=== PATIENT | female | born 1955 | race Caucasian/White ===

== ENCOUNTER 2017-10-09 10:48 | Inpatient (IN) ==
[2017-10-09] MEDS ORDERED: Ondansetron 4 MG/2 ML VIAL IVP ONE (10:51)
[2017-10-09] MEDS ORDERED: *HR* FentaNYL (PF) 100 MCG/2 ML VIAL IVP ONE (10:51)
--- NOTE | 2017-10-09 11:13 | Emergency Department Note ---
Disposition Clinical Impression: Hip fracture, right Qualifiers: Encounter type: initial encounter Fracture type: closed Qualified Code(s): S72.001A - Fracture of unspecified part of neck of right femur, initial encounter for closed fracture Disposition: Admitted As Inpatient Condition: Good Referrals: Kevin Haque DO [Primary Care Provider] - Time of Disposition: 13:37 General Adult HPI - General Chief complaint: ED Fall Stated complaint: Fall, hip pain Time Seen by Provider: 10/09/17 10:50 Source: patient, EMS Limitations: no limitations Nursing Notes Reviewed: Yes Vital Signs Reviewed: Yes - History of Present Illness HPI Narrative: Mechanical fall, right hip pain. Did not strike head. did not lose consciousness. Only complaining of right hip pain. Right hip is shortened and externally rotated. No radiation of the pain. Pain Scale: 9 - Related Data Home Medications Medication Instructions Recorded Confirmed Atenolol 100 mg PO DAILY 10/09/17 10/09/17 Atorvastatin Calcium [Lipitor] 20 mg PO QPM 10/09/17 10/09/17 Ergocalciferol (VITAMIN D2) 50,000 unit PO QWEEK 10/09/17 10/09/17 [Vitamin D2] Glimepiride [Amaryl] 4 mg PO BID 10/09/17 10/09/17 Insulin ASPART [Novolog Flexpen] 10 unit SQ 1700 10/09/17 10/09/17 Insulin Glargine,Hum.rec.anlog 25 unit SQ QAM 10/09/17 10/09/17 [Lantus Solostar] Lisinopril [Zestril] 40 mg PO BID 10/09/17 10/09/17 Omeprazole [PriLOSEC] 20 mg PO DAILY 10/09/17 10/09/17 Oxycodone HCl/Acetaminophen 1 tab PO Q4-6H PRN 10/09/17 10/09/17 [Percocet 5-325 mg Tablet] Pioglitazone HCl [Actos] 45 mg PO DAILY 10/09/17 10/09/17 amLODIPine [Norvasc] 5 mg PO DAILY 10/09/17 10/09/17 Allergies Allergy/AdvReac Type Severity Reaction Status Date / Time No Known Allergies Allergy Verified 10/09/17 10:53 All systems ED: reviewed and negative except as stated. Constitutional: Denies: fever, chills Cardiovascular: Denies: chest pain, syncope Respiratory: Denies: cough, dyspnea Gastrointestinal: Denies: abdominal pain, nausea, vomiting, diarrhea Musculoskeletal: Reports: other (Right hip pain). Denies: back pain, neck pain Past Medical History - Past Medical History Medical history: Reports: diabetes, hyperlipidemia, hypertension, renal disease Psychiatric history: Reports: anxiety, depression - Social History Smoking Status: Current every day smoker Smokeless Tobacco Status: No Alcohol use: Reports: none Drug use: Reports: none Physical Exam - General Limitations: no limitations General appearance: alert, in no apparent distress - Head Head exam: atraumatic, normocephalic, normal inspection - Eye Eye exam: Present: normal appearance, PERRL, EOMI - ENT ENT exam: normal exam, normal oropharynx, mucous membranes moist - Neck Neck exam: Present: normal inspection, full ROM, trachea midline - Chest Chest inspection: Present: normal inspection, symmetric chest wall rise - Respiratory Respiratory exam: Present: normal lung sounds bilaterally. Absent: respiratory distress - Cardiovascular Cardiovascular exam: Present: regular rate, normal rhythm - Abdominal Exam Abdominal exam: Present: soft, Non-Tender. Absent: organomegaly - Expanded Upper Extremity Exam Shoulder exam: Present: normal inspection, full ROM Arm exam: Present: normal inspection, full ROM Elbow exam: Present: normal inspection, full ROM Forearm/Wrist exam: Present: normal inspection, full ROM Hand exam: Present: normal inspection, full ROM Vascular exam: Normal: capillary refill, radial pulse - Expanded Lower Extremity Exam Hip/Pelvis exam: Present: external rotation (Right lower extremity), shortening (Right lower extremity) - Neurological Exam Neurological exam: Present: alert, oriented X3 - Psychiatric Psychiatric exam: Present: normal affect, normal mood - Skin Skin exam: Present: warm, dry, intact, normal color Course Course Narrative: Female patient presenting to the emergency department complaining of right hip pain. Her right lower extremity is shortened and externally rotated. She does have a fracture with possible underlying lytic lesion noted on the x-ray. She states that this was a mechanical fall. No syncope. Did not strike her head. She is not on any type of anticoagulation. She does have a history of diabetes as well as pancreatitis. She states she has broken several was before but never had to have surgery. She is complaining of mild pain at this time but did have some pain medication. Patient has no history of cancer. She does have good pulses in her lower extremities however she does have edema to both lower extremities. Her lung sounds are clear heart tones are normal. She has had no syncope or striking her head so we will not get a CT of her head. She is mentating appropriately at this time. I have discussed the lytic lesions in her leg with her. She expresses understanding. We will admit to the hospitalist and Dr. Wellington will be consulted for her hip fracture. - Consultations Consultation #1: I spoke with Dr Wellington's MA. She then spoke with Dr Jennings who states he will see the Pt this evening. Time: 12:00 Consultation #2: Dr Rock accepted Pt in stable condition. Time: 12:21 Vital Signs Temperature 97.5 F L 10/09/17 10:49 Pulse Rate 68 10/09/17 10:49 Respiratory Rate 18 10/09/17 10:49 Blood Pressure 163/66 10/09/17 10:49 O2 Sat by Pulse Oximetry 95 10/09/17 10:49 Temperature 98.0 F 10/09/17 13:16 Pulse Rate 62 10/09/17 13:16 Respiratory Rate 16 10/09/17 13:16 Blood Pressure 152/67 10/09/17 13:16 O2 Sat by Pulse Oximetry 97 10/09/17 13:16 Oxygen Delivery Oxygen Delivery Room Air Medical Decision Making - Medical Records Medical records reviewed: Yes I reviewed the patient's medical records. - Lab Data Lab results reviewed: Yes I reviewed the patient's lab results. Result diagrams: 10/09/17 11:35 10/09/17 11:35 Lab Results 10/09/17 10/09/17 10/09/17 Range/Units 11:35 11:35 11:35 WBC 8.5 (4.3-11.1) K/mcL RBC 4.94 (3.82-4.97) M/mcL Hgb 13.8 (11.5-15.4) g/dL Hct 41.3 (35.3-44.9) % MCV 83.6 (83.0-100.0) fL MCH 27.9 L (28.0-33.3) pg MCHC 33.4 (31.6-35.5) g/dL RDW 13.4 (11.5-14.5) % Plt Count 226 (140-400) K/mcL MPV 11.3 (9.4-12.4) fL Immature Gran % 0.6 (0-4) % Seg Neutrophils % 76.4 % Lymphocytes % 14.9 % Monocytes % 5.9 % Eosinophils % 1.5 % Basophils % 0.7 % Neutrophils # 6.5 (1.6-8.9) K/mcL Lymphocytes # 1.3 (0.6-4.6) K/mcL Monocytes # 0.5 (0.0-1.3) K/mcL Eosinophils # 0.1 (0.0-0.6) K/mcL Basophils # 0.1 (0.0-0.2) K/mcL PT 11.8 (9.4-12.1) Seconds INR 1.1 APTT 30.7 (26.0-36.0) Seconds Sodium 137 (136-145) mEq/L Potassium 3.7 (3.5-5.1) mEq/L Chloride 99 (98-107) mEq/L Carbon Dioxide 29 (23-29) mEq/L BUN 13 (8-23) mg/dL Creatinine 0.81 (0.60-1.20) mg/dL Est GFR ( Amer) > 60 (> 60) Est GFR (Non-Af Amer) > 60 (> 60) BUN/Creatinine Ratio 16 (6-26) Glucose 279 H (70-105) mg/dL Calculated Osmolality 294 (280-300) Calcium 10.0 (8.6-10.3) mg/dL - Radiology Data Radiology results reviewed: Yes I reviewed the patient's radiology results. Femur X-Ray 10/09/17 10:51 IMPRESSION: 1. Acute fracture involving the right femoral neck with indeterminate location. Suboptimal visualization of the fracture line is suspected to be related to an underlying osteolytic lesion, suggesting a pathologic fracture. Consider further evaluation with contrast-enhanced MRI. 2. Bony demineralization. D/ / Ash Bingham MD / Ash Bingham MD Interpreting Provider: Ash Bingham MD Pelvis X-Ray 10/09/17 10:51 IMPRESSION: 1. Acute fracture involving the right femoral neck with indeterminate location. Suboptimal visualization of the fracture line is suspected to be related to an underlying osteolytic lesion, suggesting a pathologic fracture. Consider further evaluation with contrast-enhanced MRI. 2. Bony demineralization. D/ / Ash Bingham MD / Ash Bingham MD Interpreting Provider: Ash Bingham MD - EKG Data EKG #1 EKG attestation: Yes I reviewed and interpreted this EKG. EKG results narrative: Normal sinus rhythm at a rate of 66. SC interval is 172. Ferrous duration is 92. QT is 393. QTC is 406. No signs of acute ischemia. No old EKG to compare to.
[2017-10-09 11:49] LABS: Basophils # 0.1 K/mcL (0.0-0.2); Basophils % 0.7 %; Eosinophils # 0.1 K/mcL (0.0-0.6); Eosinophils % 1.5 %; Hematocrit 41.3 % (35.3-44.9); Hemoglobin 13.8 g/dL (11.5-15.4); Immature Granulocytes % 0.6 % (0-4); Lymphocytes # 1.3 K/mcL (0.6-4.6); Lymphocytes % 14.9 %; Mean Corpuscular HGB Conc 33.4 g/dL (31.6-35.5); Mean Corpuscular Hemoglobin 27.9 pg (28.0-33.3); Mean Corpuscular Volume 83.6 fL (83.0-100.0); Mean Platelet Volume 11.3 fL (9.4-12.4); Monocytes # 0.5 K/mcL (0.0-1.3); Monocytes % 5.9 %; Neutrophils # 6.5 K/mcL (1.6-8.9); Platelet Count 226 K/mcL (140-400); Red Blood Count 4.94 M/mcL (3.82-4.97); Red Cell Distribution Width 13.4 % (11.5-14.5); Segmented Neutrophils % 76.4 %
--- NOTE | 2017-10-09 11:52 | Emergency Department Note ---
Disposition Clinical Impression: Hip fracture, right Qualifiers: Encounter type: initial encounter Fracture type: closed Qualified Code(s): S72.001A - Fracture of unspecified part of neck of right femur, initial encounter for closed fracture Disposition: Admitted As Inpatient Condition: Good General Adult HPI - General Chief complaint: ED Fall Stated complaint: Fall, hip pain Time Seen by Provider: 10/09/17 10:50 Source: patient, EMS Limitations: no limitations - History of Present Illness Pain Scale: 9 - Related Data Home Medications Medication Instructions Recorded Confirmed Atenolol 100 mg PO DAILY 10/09/17 10/09/17 Atorvastatin Calcium [Lipitor] 20 mg PO QPM 10/09/17 10/09/17 Ergocalciferol (VITAMIN D2) 50,000 unit PO QWEEK 10/09/17 10/09/17 [Vitamin D2] Glimepiride [Amaryl] 4 mg PO BID 10/09/17 10/09/17 Insulin ASPART [Novolog Flexpen] 10 unit SQ 1700 10/09/17 10/09/17 Insulin Glargine,Hum.rec.anlog 25 unit SQ QAM 10/09/17 10/09/17 [Lantus Solostar] Lisinopril [Zestril] 40 mg PO BID 10/09/17 10/09/17 Omeprazole [PriLOSEC] 20 mg PO DAILY 10/09/17 10/09/17 Oxycodone HCl/Acetaminophen 1 tab PO Q4-6H PRN 10/09/17 10/09/17 [Percocet 5-325 mg Tablet] Pioglitazone HCl [Actos] 45 mg PO DAILY 10/09/17 10/09/17 amLODIPine [Norvasc] 5 mg PO DAILY 10/09/17 10/09/17 Allergies Allergy/AdvReac Type Severity Reaction Status Date / Time No Known Allergies Allergy Verified 10/09/17 10:53 Past Medical History - Past Medical History Medical history: Reports: diabetes, hyperlipidemia, hypertension, renal disease Psychiatric history: Reports: anxiety, depression - Social History Smoking Status: Current every day smoker Smokeless Tobacco Status: No Alcohol use: Reports: none Drug use: Reports: none Physical Exam - General Limitations: no limitations General appearance: alert, in no apparent distress Course Vital Signs Temperature 97.5 F L 10/09/17 10:49 Pulse Rate 68 10/09/17 10:49 Respiratory Rate 18 10/09/17 10:49 Blood Pressure 163/66 10/09/17 10:49 O2 Sat by Pulse Oximetry 95 10/09/17 10:49 Temperature 98.0 F 10/09/17 18:30 Pulse Rate 74 10/09/17 18:30 Respiratory Rate 16 10/09/17 18:30 Blood Pressure 137/76 10/09/17 18:30 O2 Sat by Pulse Oximetry 98 10/09/17 18:30 Oxygen Delivery Oxygen Delivery Room Air Medical Decision Making - Lab Data Result diagrams: 10/09/17 11:35 10/09/17 11:35 Lab Results 10/09/17 10/09/17 10/09/17 Range/Units 11:35 11:35 11:35 WBC 8.5 (4.3-11.1) K/mcL RBC 4.94 (3.82-4.97) M/mcL Hgb 13.8 (11.5-15.4) g/dL Hct 41.3 (35.3-44.9) % MCV 83.6 (83.0-100.0) fL MCH 27.9 L (28.0-33.3) pg MCHC 33.4 (31.6-35.5) g/dL RDW 13.4 (11.5-14.5) % Plt Count 226 (140-400) K/mcL MPV 11.3 (9.4-12.4) fL Immature Gran % 0.6 (0-4) % Seg Neutrophils % 76.4 % Lymphocytes % 14.9 % Monocytes % 5.9 % Eosinophils % 1.5 % Basophils % 0.7 % Neutrophils # 6.5 (1.6-8.9) K/mcL Lymphocytes # 1.3 (0.6-4.6) K/mcL Monocytes # 0.5 (0.0-1.3) K/mcL Eosinophils # 0.1 (0.0-0.6) K/mcL Basophils # 0.1 (0.0-0.2) K/mcL PT 11.8 (9.4-12.1) Seconds INR 1.1 APTT 30.7 (26.0-36.0) Seconds Sodium 137 (136-145) mEq/L Potassium 3.7 (3.5-5.1) mEq/L Chloride 99 (98-107) mEq/L Carbon Dioxide 29 (23-29) mEq/L BUN 13 (8-23) mg/dL Creatinine 0.81 (0.60-1.20) mg/dL Est GFR ( Amer) > 60 (> 60) Est GFR (Non-Af Amer) > 60 (> 60) BUN/Creatinine Ratio 16 (6-26) Glucose 279 H (70-105) mg/dL Calculated Osmolality 294 (280-300) Calcium 10.0 (8.6-10.3) mg/dL Critical Care Time Critical Care Time: No Attestation Statement - Attestation Attestation: I examined this patient and my medical decision-making was reviewed with the Resident Physician. I agree with the documented findings, disposition and treatment plan as described except to the extent set forth below. Patient ED after a fall. Patient lost her balance in her house and fell landed on her right leg. Depending a right upper thigh pain. No neck or back pain. Did not hit her head. On examination she is awake alert oriented 3. Right leg is shortened and externally rotated. Patient does not allow logrolling secondary to pain. But pink and warm. Plan. X-ray shows a subcapital hip fracture. Preop labs admitted to medicine with orthopedic consult. X-ray shows possible lytic lesions in the bone. Admitted to medicine with orthopedic consult.
[2017-10-09 11:54] LABS: INR 1.1; Prothrombin Time 11.8 Seconds (9.4-12.1)
[2017-10-09 11:57] LABS: Activated Partial Thrombo Time 30.7 Seconds (26.0-36.0)
[2017-10-09 12:10] LABS: BUN/Creatinine Ratio 16 (6-26); Blood Urea Nitrogen 13 mg/dL (8-23); Carbon Dioxide 29 mEq/L (23-29); Chloride 99 mEq/L (98-107); Glucose 279 mg/dL (70-105); Osmolality,Calculated 294 (280-300); Potassium 3.7 mEq/L (3.5-5.1); Sodium 137 mEq/L (136-145); eGFR For African Americans > 60 (> 60); eGFR For Non-African Americans > 60 (> 60)
[2017-10-09] MEDS ORDERED: Naloxone 0.4 MG/ML INJ IVP PRN (13:14)
[2017-10-09] MEDS ORDERED: *HR* Dextrose 50 % in Water (Syg) 50 ML SYRINGE IVP PRN (13:18)
[2017-10-09] MEDS ORDERED: D5% in Water 1,000 ML IVC PRN (13:18)
[2017-10-09] MEDS ORDERED: Dextrose Gel 15 GM/37.5 ML TUBE PO PRN ×2 (13:18)
[2017-10-09] MEDS ORDERED: Isovue-370 500 ML INFUS..BTL IV ONE (13:19)
--- NOTE | 2017-10-09 13:34 | Internal Med History&Physical ---
Date of Encounter: 10/09/17 Time of Encounter: 13:29 Internal Medicine - H&P: HPI Chief complaint: fall Admitted From: Emergency Dept Plans for Post Hospital Care: Transfer Inp Rehab Fac History of present illness: Ms. Oakley is a 62 year old female who is a background medical history of her diabetes, hyperlipidemia, hypertension. Patient came to emergency room for evaluation after she had a fall at home. Patient had a fall when she was completely alert oriented 3. Patient had a slip and fall which is likely a mechanical fall. Patient denies chest pain, shortness of breath, nausea, vomiting, dizziness or diarrhea. Patient denies any presyncopal/syncopal episode. Workup in the emergency room: Patient was brought to the emergency room after she had a fall. In the emergency room it was noted that she has a her right leg is shortened and externally rotated. X-ray of the hip along with pelvis demonstrated right-sided subcapital hip fracture likely secondary to underlying osteolytic lesion. Reason for admission: Right-sided subcapital hip fracture likely secondary to underlying lytic lesion for which etiology is unknown at this time. Past Med Surg Social Fam HX - Past Medical History Medical history: diabetes, hyperlipidemia, hypertension, renal disease Psychiatric history: anxiety, depression - Past Surgical History Surgical History: orthopedic, other - Social History Smoking Status: Current every day smoker Packs per day: 1 Smokeless Tobacco Status: No Alcohol use: none Drug use: none - Family History Mother Living Status: Hx Family Endocrine Disorder: Yes Internal Medicine - H&P: Meds Atenolol 100 mg PO DAILY 10/09/17 [History] Atorvastatin Calcium [Lipitor] 20 mg PO QPM 10/09/17 [History] Ergocalciferol (VITAMIN D2) [Vitamin D2] 50,000 unit PO QWEEK 10/09/17 [History] Glimepiride [Amaryl] 4 mg PO BID 10/09/17 [History] Insulin ASPART [Novolog Flexpen] 10 unit SQ 1700 10/09/17 [History] Insulin Glargine,Hum.rec.anlog [Lantus Solostar] 25 unit SQ QAM 10/09/17 [ History] Lisinopril [Zestril] 40 mg PO BID 10/09/17 [History] Omeprazole [PriLOSEC] 20 mg PO DAILY 10/09/17 [History] Oxycodone HCl/Acetaminophen [Percocet 5-325 mg Tablet] 1 tab PO Q4-6H PRN [History] Pioglitazone HCl [Actos] 45 mg PO DAILY 10/09/17 [History] amLODIPine [Norvasc] 5 mg PO DAILY 10/09/17 [History] 3 Allergy/AdvReac Type Severity Reaction Status Date / Time No Known Allergies Allergy Verified 10/09/17 10:53 All Systems PM: A 10-system review of systems was performed and is negative for pertinent findings except as documented above in the HPI. - Constitutional Constitutional: no chills, no fever(s), no night sweats - EENT Eyes: no change in vision, no discharge, no pain, no photophobia Ears: no ear discharge, no ear pain, no tinnitus Nose, mouth and throat: no dysphagia, no nasal discharge, no neck pain, no sore throat - Cardiovascular Cardiovascular ROS IM: no chest pain, no diaphoresis, no dyspnea, no lightheadedness, no palpitations, no syncope - Respiratory Respiratory: no cough, no dyspnea, no wheezing, no excessive phlegm production - Gastrointestinal Gastrointestinal: no abdominal pain, no diarrhea, no hematemesis, no hematochezia, no melena, no nausea, no vomiting - Genitourinary Genitourinary: no change in urinary stream, no dysuria, no flank pain, no hematuria - Musculoskeletal Musculoskeletal ROS IM: no numbness, no tingling Additional comments: Patient had a fall and pain on the right thigh area. - Integumentary Integumentary IM: no rash, no unusual bruising - Neurological Neurological ROS: no confusion, no convulsions, no focal weakness, no numbness, no tingling, no tremor(s) - Hematologic/Lymphatic Hematologic/Lymphatic: no easy bruising - Constitutional Vitals: Temp Pulse Resp BP Pulse Ox 98.0 F 62 16 152/67 97 10/09/17 13:16 10/09/17 13:16 10/09/17 13:16 10/09/17 13:16 10/09/17 13:16 General appearance: Present: A&O X 3, pleasant, no acute distress, answers questions appropriately - Head Head exam: Present: atraumatic, normocephalic - Eye Eye exam: Present: PERRL, conjuntiva pink, sclera anicteric Pupils: Present: PERRL - Neck Neck exam general surgery: Present: supple, trachea midline. Absent: lymphadenopathy - Respiratory Respiratory exam: Present: CTAB. Absent: accessory muscle use, rales, rhonchi, wheezes - Cardiovascular Cardiovascular exam: Present: RRR, +S1, +S2. Absent: diastolic murmur, gallop, rubs, systolic murmur - GI/Abdominal GI/Abdominal exam: Present: normal bowel sounds, soft, no peritoneal signs. Absent: distended, tenderness - Extremities Exam Extremities exam: Present: warm, radial pulses palpable and symmetrical. Absent : calf tenderness, cyanotic, pedal edema Additional comments: Right-sided fall on her lower extremity with leg shortening and external rotation. Neurovascular structures intact. - Neurological Exam Neurological exam: Present: CN II-XII intact, oriented X3, no focal deficits. Absent: pronater drift, facial droop, speech deficit - Skin Skin exam: Present: dry, intact Internal Med - H&P Results - Labs CBC & Chem 7: 10/09/17 11:35 10/09/17 11:35 - Assessment and plan (1) Hip fracture, right Current Visit: Yes Status: Acute Assessment and plan: 62/female Patient has a multiple comorbid conditions. Admitted after a mechanical fall with a right-sided subcapital hip fracture. Noted osteolytic lesion right hip. Mammogram: 06/2017: Negative Pap: 07/2016: Negative. Plan: Admit as inpatient. Pain control with appropriate narcotic pain medication. Cardiac/diabetic diet Resume home medication. Nothing by mouth from midnight. Orthopedic evaluation: Plan regarding right-sided subcapital fracture. Hematology oncology evaluation: Workup for the lactic lesion and follow-up (CXR : No acute process, CT abd/pelvis: Ordered) I examined this patient in the emergency room #15. patient's was at bedside. Plan of care explained at length and they verbalize understanding. Qualifiers: Encounter type: initial encounter Fracture type: closed Qualified Code(s) : S72.001A - Fracture of unspecified part of neck of right femur, initial encounter for closed fracture (2) Diabetes mellitus Current Visit: Yes Status: Acute Assessment and plan: Patient is known to have a diabetes mellitus. This is a type 2 diabetes mellitus. At home she is taking insulin. We will continue her insulin. We will follow the recommendations from subcutaneous insulin order set. Qualifiers: Diabetes mellitus type: type 2 Diabetes mellitus fci insulin use: with fci use Diabetes mellitus complication status: with unspecified complications Qualified Code(s): E11.8 - Type 2 diabetes mellitus with unspecified complications; Z79.4 - penitentiary (current) use of insulin; Z79.4 - penitentiary (current) use of insulin; Z79.4 - meeting/event planner (current) use of insulin; Z79.4 - penitentiary (current) use of insulin (3) Hypertension Current Visit: Yes Status: Acute Assessment and plan: Patient is known to have a hypertension. Patient is on 3 different medication for blood pressure control. At this point patient's blood pressure is very well controlled and within acceptable range. Patient received intravenous pain medication to control pain since pain can elevate the blood pressure in this patient. We will resume patient's home pain medication. We will resume patient's antihypertensive medications. Qualifiers: Hypertension type: essential hypertension Qualified Code(s): I10 - Essential (primary) hypertension (4) Dyslipidemia Current Visit: Yes Status: Acute Assessment and plan: Patient is presently on starting. we will continue statin. Lipid panel tomorrow morning. (5) DVT prophylaxis Current Visit: Yes Status: Acute Assessment and plan: Heparin Medical decision making: This patient has a moderate to severe risk of worsening in spite of being on appropriate medication due to the underlying complex medical condition. - Time Spent With Patient Total time spent is greater than 50% in coordination of care (as documented) at patient's floor/unit and/or counseling patient:
[2017-10-09 14:01] LABS: INR 1.1; Prothrombin Time 11.8 Seconds (9.4-12.1)
[2017-10-09 14:04] LABS: Activated Partial Thrombo Time 33.8 Seconds (26.0-36.0)
[2017-10-09] MEDS: *HR* OxyCODONE/APAP 5/325 TABLET PO PRN ×2 (15:37→21:04)
[2017-10-09] MEDS: amLODIPine 5 MG TABLET PO SCH (15:38)
[2017-10-09] MEDS: Cholecalciferol (D-3) 1,000 UNIT TABLET PO SCH (15:39)
[2017-10-09] MEDS: Lisinopril 20 MG TABLET PO SCH ×2 (15:39→21:01)
[2017-10-09] MEDS: Insulin LISPRO 300 UNITS/3 ML VIAL SQ SCH ×2 (17:16→17:17)
[2017-10-09] MEDS ORDERED: *HR* Heparin 5,000 UNIT/ML VIAL SQ SCH (18:00)
--- NOTE | 2017-10-09 20:50 | Orthopedic Consult Note ---
Date of Encounter: 10/09/17 Time of Encounter: 20:44 History of Present Illness Chief complaint: Right hip pain HPI: Ms. Oakley is a 62 year old female who lost her balance and fell in her home in the kitchen. She landed on the right hip and had immediate pain and inability to ambulate. She called the squad and was taken to [facility] were x-rays taken revealed evidence of a right hip fracture. There was some question about whether there was a lytic lesion, a CT scan was performed which revealed the fracture but no evidence of an obvious pathologic process although than osteopenia. Patient is admitted for definitive management of this injury. Patient's medical and surgical history was reviewed. The formal history and physical examination on the chart was likewise reviewed. Pertinent orthopedic examination reveals the right lower extremity to be held in a shortened and externally rotated position. Distal neurosensory exam is grossly intact. Limited examination of the hip was performed due to the pain is elicited. Laboratory data includes a normal white blood cell count of 8.5, hemoglobin of 13.8, count of 226 and normal coagulation profile. Chemistries are unremarkable other than a glucose of 200-300. Multiple x-rays of the right femur and hip were reviewed. This reveals a displaced right femoral neck fracture. Osteopenia is noted. The head remained seated in the acetabulum. There is shortening due to muscle pull with the femur migrated proximal. CT scan of the pelvis was reviewed. This is show any evidence of lytic or other pathologic lesions. Impression: Displaced right femoral neck fracture Recommendation: I long discussion with the patient regarding the fracture and the treatment options. This would include observation without surgical intervention, attempted reduction and percutaneous pinning or hemiarthroplasty of the hip. Discussed that nonoperative management is not a good option. Percutaneous pinning would limit her ambulatory capacity and is associated with a high risk of failure. Hemiarthroplasty of the hip would allow her to begin immediate full weightbearing ambulation though she would have hip precautions required as well as this being a little bit more extensive surgery. After discussing the options at length the patient has requested we proceed with a hemiarthroplasty of the right hip. I discussed the potential risks and complications including but not limited to bleeding, infection, blood clots, stiffness, dislocation, as well as leg length or rotational deformities. Patient signed informed consent for the surgery. We will proceed with surgery tomorrow when operating time is available. Preoperative orders have been written. Thank you very much for allowing me to see care for Mrs. Oakley. Sincerely, Ayo Wellington,DO Past Med Surg Social Fam HX - Past Medical History Medical history: diabetes, hyperlipidemia, hypertension, renal disease Psychiatric history: anxiety, depression - Past Surgical History Surgical History: orthopedic, other - Social History Smoking Status: Current every day smoker Packs per day: 1 Smokeless Tobacco Status: No Alcohol use: none Drug use: none - Family History Mother Living Status: Hx Family Endocrine Disorder: Yes Medications and Allergies Atenolol 100 mg PO DAILY 10/09/17 [History] Atorvastatin Calcium [Lipitor] 20 mg PO QPM 10/09/17 [History] Ergocalciferol (VITAMIN D2) [Vitamin D2] 50,000 unit PO QWEEK 10/09/17 [History] Glimepiride [Amaryl] 4 mg PO BID 10/09/17 [History] Insulin ASPART [Novolog Flexpen] 10 unit SQ 1700 10/09/17 [History] Insulin Glargine,Hum.rec.anlog [Lantus Solostar] 25 unit SQ QAM 10/09/17 [ History] Lisinopril [Zestril] 40 mg PO BID 10/09/17 [History] Omeprazole [PriLOSEC] 20 mg PO DAILY 10/09/17 [History] Oxycodone HCl/Acetaminophen [Percocet 5-325 mg Tablet] 1 tab PO Q4-6H PRN [History] Pioglitazone HCl [Actos] 45 mg PO DAILY 10/09/17 [History] amLODIPine [Norvasc] 5 mg PO DAILY 10/09/17 [History] 3 Allergy/AdvReac Type Severity Reaction Status Date / Time No Known Allergies Allergy Verified 10/09/17 10:53 All Systems Reviewed: The remainder of the systems were reviewed and are negative Physical Exam - Constitutional Vitals: Temp Pulse Resp BP Pulse Ox 98.0 F 74 16 137/76 98 10/09/17 18:30 10/09/17 18:30 10/09/17 18:30 10/09/17 18:30 10/09/17 18:30 Results - Labs Result Diagrams: 10/09/17 11:35 10/09/17 11:35 Labs: Abnormal lab results MCH 27.9 pg (28.0-33.3) L 10/09/17 11:35 Glucose 279 mg/dL (70-105) H 10/09/17 11:35 POC Glucose 213 mg/dL (70-99) H 10/09/17 18:27 All other labs normal. - Diagnostic results Hip x-ray: image reviewed Pelvic AP x-ray: image reviewed Consult Discharge Plan - Plan Referrals: Kevin Haque DO [Primary Care Provider] -
[2017-10-10 01:34] LABS: Basophils % 0.3 %; Hematocrit 38.2 % (35.3-44.9); Hemoglobin 12.8 g/dL (11.5-15.4); Immature Granulocytes % 0.4 % (0-4); Lymphocytes # 0.7 K/mcL (0.6-4.6); Lymphocytes % 6.3 %; Mean Corpuscular HGB Conc 33.5 g/dL (31.6-35.5); Mean Corpuscular Hemoglobin 27.5 pg (28.0-33.3); Mean Corpuscular Volume 82.2 fL (83.0-100.0); Mean Platelet Volume 10.9 fL (9.4-12.4); Monocytes # 0.4 K/mcL (0.0-1.3); Neutrophils # 9.3 K/mcL (1.6-8.9); Platelet Count 188 K/mcL (140-400); Red Blood Count 4.65 M/mcL (3.82-4.97); Red Cell Distribution Width 13.5 % (11.5-14.5)
[2017-10-10 02:01] LABS: Alanine Aminotransferase 10 Units/L (7-52); Albumin 3.5 g/dL (3.5-5.7); Albumin/Globulin Ratio 1.2 (1.1-2.2); Alkaline Phosphatase 106 Units/L (34-104); Aspartate Amino Transferase 14 Units/L (13-39); BUN/Creatinine Ratio 17 (6-26); Bilirubin,Total 0.6 mg/dL (0.3-1.0); Blood Urea Nitrogen 12 mg/dL (8-23); Calcium 9.2 mg/dL (8.6-10.3); Carbon Dioxide 27 mEq/L (23-29); Chloride 100 mEq/L (98-107); Chol/HDL Ratio 2.9 (0-4.9); Cholesterol 106 mg/dL (< 200); Glucose 198 mg/dL (70-105); HDL Cholesterol 37 mg/dL (40-59); LDL Cholesterol,Calculated 59 mg/dL (0-99); Magnesium 1.4 mg/dL (1.6-2.6); Osmolality,Calculated 289 (280-300); Phosphorous 3.3 mg/dL (2.7-4.5); Potassium 3.3 mEq/L (3.5-5.1); Sodium 137 mEq/L (136-145); Total Protein 6.5 g/dL (6.4-8.9); Triglycerides 49 mg/dL (< 150); eGFR For African Americans > 60 (> 60); eGFR For Non-African Americans > 60 (> 60)
[2017-10-10] MEDS ORDERED: Insulin DETEMIR 100 UNIT/ML X5UNITS SQ SCH (09:00)
--- NOTE | 2017-10-10 09:20 | Electrocardiograph Report ---
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
[2017-10-10] MEDS: Insulin LISPRO 300 UNITS/3 ML VIAL SQ SCH ×4 (09:25→17:51)
[2017-10-10] MEDS: amLODIPine 5 MG TABLET PO SCH (09:25)
[2017-10-10] MEDS: Cholecalciferol (D-3) 1,000 UNIT TABLET PO SCH (09:26)
[2017-10-10] MEDS: Lisinopril 20 MG TABLET PO SCH ×2 (09:26→21:00)
--- NOTE | 2017-10-10 11:32 | Electrocardiograph Report ---
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
[2017-10-10] MEDS: *HR* OxyCODONE/APAP 5/325 TABLET PO PRN (11:52)
[2017-10-10] MEDS ORDERED: Potassium Chloride Elixir 20 MEQ/15 ML UDC PO ONE (12:15)
--- NOTE | 2017-10-10 13:18 | Anesthesia Evaluation PreOp ---
<Tony Vincent - Last Filed: 10/10/17 13:15> Date of Encounter: 10/10/17 Time of Encounter: 13:15 - Past History Planned Operation: Right Hip Hemiarthroplasty Cardiac History: HTN, Hyperlipidemia Pulmonary History: Smoker, Pack/yr (1 ppd) Other Medical History: Renal, Diabetes Type II Alcohol Use: none Drug use: none Medications and Allergies Atenolol 100 mg PO DAILY 10/09/17 [History] Atorvastatin Calcium [Lipitor] 20 mg PO QPM 10/09/17 [History] Ergocalciferol (VITAMIN D2) [Vitamin D2] 50,000 unit PO QWEEK 10/09/17 [History] Glimepiride [Amaryl] 4 mg PO BID 10/09/17 [History] Insulin ASPART [Novolog Flexpen] 10 unit SQ 1700 10/09/17 [History] Insulin Glargine,Hum.rec.anlog [Lantus Solostar] 25 unit SQ QAM 10/09/17 [ History] Lisinopril [Zestril] 40 mg PO BID 10/09/17 [History] Omeprazole [PriLOSEC] 20 mg PO DAILY 10/09/17 [History] Oxycodone HCl/Acetaminophen [Percocet 5-325 mg Tablet] 1 tab PO Q4-6H PRN [History] Pioglitazone HCl [Actos] 45 mg PO DAILY 10/09/17 [History] amLODIPine [Norvasc] 5 mg PO DAILY 10/09/17 [History] 3 Allergy/AdvReac Type Severity Reaction Status Date / Time No Known Allergies Allergy Verified 10/09/17 10:53 - Meds/Allergy Pre-op Review Medications Reviewed: Yes Allergies Reviewed: Yes Beta Blockers on Current Med List: Yes If Beta Blockers taken, Date/Time (Last Dose taken): 10/10/17 @ 09:36 Anesthesia Results - Labs 10/10/17 01:18 10/10/17 01:18 - Imaging EKG: report reviewed (SINUS RHYTHM INTRAVENTRICULAR CONDUCTION DELAY) Anesthesia Exam Vital Signs/O2 Sat, Most Current Temp Pulse Resp BP Pulse Ox 97.5 F L 67 16 131/80 98 10/10/17 11:31 10/10/17 11:31 10/10/17 11:31 10/10/17 11:31 10/10/17 11:31 <Stella Rashid - Last Filed: 10/10/17 19:13> Date of Encounter: 10/10/17 - Past History Cardiac History: CHF (BNP = 109 this hospitalization) PSYCHOLOGIST ENGINEERING History: Denies Any Significant HX Other Medical History: Diabetes Type II (Poorly controlled DM/HbA1 = 9.6) Anesthesia History: No Prior Anesthetic Complications, Past Anesthesia (Starr, C -section x 2, Cataracts, Appy) Anesthesia Results - Labs 10/10/17 01:18 10/10/17 01:18 Laboratory Results WBC 10.5 K/mcL (4.3-11.1) 10/10/17 01:18 RBC 4.65 M/mcL (3.82-4.97) 10/10/17 01:18 Hgb 12.8 g/dL (11.5-15.4) 10/10/17 01:18 Hct 38.2 % (35.3-44.9) 10/10/17:18 MCV 82.2 fL (83.0-100.0) L 10/10/17 01:18 MCH 27.5 pg (28.0-33.3) L 10/10/17 01:18 MCHC 33.5 g/dL (31.6-35.5) 10/10/17:18 RDW 13.5 % (11.5-14.5) 10/10/17 01:18 Plt Count 188 K/mcL (140-400) 10/10/17 01:18 MPV 10.9 fL (9.4-12.4) 10/10/17 01:18 Immature Gran % 0.4 % (0-4) 10/10/17 01:18 Seg Neutrophils % 89.0 % 10/10/17 01:18 Lymphocytes % 6.3 % 10/10/17 01:18 Monocytes % 4.0 % 10/10/17 01:18 Eosinophils % 0.0 % 10/10/17 01:18 Basophils % 0.3 % 10/10/17 01:18 Neutrophils # 9.3 K/mcL (1.6-8.9) H 10/10/17 01:18 Lymphocytes # 0.7 K/mcL (0.6-4.6) 10/10/17 01:18 Monocytes # 0.4 K/mcL (0.0-1.3) 10/10/17 01:18 Eosinophils # 0.0 K/mcL (0.0-0.6) 10/10/17 01:18 Basophils # 0.0 K/mcL (0.0-0.2) 10/10/17 01:18 PT 11.8 Seconds (9.4-12.1) 10/09/17 13:42 INR 1.1 10/09/17 13:42 APTT 33.8 Seconds (26.0-36.0) 10/09/17 13:42 Sodium 137 mEq/L (136-145) 10/10/17 01:18 Potassium 3.3 mEq/L (3.5-5.1) L 10/10/17 01:18 Chloride 100 mEq/L (98-107) 10/10/17 01:18 Carbon Dioxide 27 mEq/L (23-29) 10/10/17 01:18 BUN 12 mg/dL (8-23) 10/10/17 01:18 Creatinine 0.70 mg/dL (0.60-1.20) 10/10/17 01:18 Est GFR ( Amer) > 60 (> 60) 10/10/17 01:18 Est GFR (Non-Af Amer) > 60 (> 60) 10/10/17 01:18 BUN/Creatinine Ratio 17 (6-26) 10/10/17 01:18 Glucose 198 mg/dL (70-105) H 10/10/17 01:18 POC Glucose 129 mg/dL (70-99) H 10/10/17 16:39 Calculated Osmolality 289 (280-300) 10/10/17 01:18 Calcium 9.2 mg/dL (8.6-10.3) 10/10/17 01:18 Phosphorus 3.3 mg/dL (2.7-4.5) 10/10/17 01:18 Magnesium 1.4 mg/dL (1.6-2.6) L 10/10/17 01:18 Total Bilirubin 0.6 mg/dL (0.3-1.0) 10/10/17 01:18 AST 14 Units/L (13-39) 10/10/17 01:18 ALT 10 Units/L (7-52) 10/10/17 01:18 Alkaline Phosphatase 106 Units/L (34-104) H 10/10/17 01:18 Troponin I < 0.03 ng/mL (< 0.04) 10/10/17 01:18 B-Natriuretic Peptide 109 pg/mL (Less than 100) H 10/10/17 01:18 Serum Total Protein 6.5 g/dL (6.4-8.9) 10/10/17 01:18 Albumin 3.5 g/dL (3.5-5.7) 10/10/17 01:18 Globulin 3.0 g/dL (2.4-3.5) 10/10/17 01:18 Albumin/Globulin Ratio 1.2 (1.1-2.2) 10/10/17 01:18 Triglycerides 49 mg/dL (< 150) 10/10/17 01:18 Cholesterol 106 mg/dL (< 200) 10/10/17 01:18 LDL Cholesterol, Calc 59 mg/dL (0-99) 10/10/17 01:18 VLDL Cholesterol, Calc 10 mg/dL (< 31) 10/10/17 01:18 HDL Cholesterol 37 mg/dL (40-59) L 10/10/17 01:18 Cholesterol/HDL Ratio 2.9 (0-4.9) 10/10/17 01:18 Impressions Femur X-Ray 10/09/17 10:51 IMPRESSION: 1. Acute fracture involving the right femoral neck with indeterminate location. Suboptimal visualization of the fracture line is suspected to be related to an underlying osteolytic lesion, suggesting a pathologic fracture. Consider further evaluation with contrast-enhanced MRI. 2. Bony demineralization. D/ / Ash Bingham MD / Ash Bingham MD Interpreting Provider: Ash Bingham MD Pelvis X-Ray 10/09/17 10:51 IMPRESSION: 1. Acute fracture involving the right femoral neck with indeterminate location. Suboptimal visualization of the fracture line is suspected to be related to an underlying osteolytic lesion, suggesting a pathologic fracture. Consider further evaluation with contrast-enhanced MRI. 2. Bony demineralization. D/ / Ash Bingham MD / Ash Bingham MD Interpreting Provider: Ash Bingham MD Chest X-Ray 10/09/17 11:27 IMPRESSION: No acute process. D/ / Ash Singh MD / Ash Singh MD Interpreting Provider: Ash Singh MD Abdomen/Pelvis CT 10/09/17 15:45 IMPRESSION: 1. Re- demonstration of a right subcapital femoral neck fracture. With CT, the fracture planes are better defined, and no convincing evidence of a bony lesion is detected, and therefore, the fracture is believed to be secondary to severe bony demineralization rather than secondary to underlying bone lesion. D/ / Collins Calderon MD / Collins Calderon MD Interpreting Provider: Collins Calderon MD Anesthesia Exam Height: 6'1 Weight: 228# BMI = 30 NPO (# of Hours): MNOc - HEENT Pupil (Motor): Pupils equal, EOMI Mallampati: II Teeth: Edentulous Oral Opening: Greater than 3 - PSYCHOLOGIST ENGINEERING LOC: Oriented PSYCHOLOGIST ENGINEERING Motor: Normal RUE, Normal LUE, Normal LLE, Normal Face, Deficit RLE PSYCHOLOGIST ENGINEERING Sensory: Normal: RUE, LUE, LLE, Face, Deficit: RLE - Cardiac Rhythm: Regular Murmur: None - Pulmonary Breath Sounds: bilateral Clear Respiratory Effort: Symmetrical Anesthesia Assess/Plan ASA Score: 3 (Smoker, COPD, DM, Chol, HTN) Modified [place] Scale for Level of Consciousness: Cooperative, oriented, and tranquil Anesthetic Plan: General Monitoring Plan: Standard Monitors Recovery Plan: PACU Anes Supervising Prov Stmt: Pt seen/evaluated, R&B Discussed, questions answered and consent obtained. Iman Romano MD
--- NOTE | 2017-10-10 16:48 | Internal Med Progress Note ---
Date of Encounter: 10/10/17 Time of Encounter: 12:30 - Assessment and plan (1) Hip fracture, right Current Visit: Yes Status: Acute Assessment and plan: Pelvic x-ray showed acute fracture of right femur oral neck with possible underlying osteolytic lesion. CT abdomen/pelvis was done which confirmed the fracture but no evidence of osteolytic lesion except demineralization. Orthopedic surgery has been consulted, plan for right hip hemiarthroplasty today. Continue supportive care, pain control with when necessary Percocet. PT /OT evaluation after surgery. Noted to have hypokalemia and hypomagnesemia. We will supplement with oral potassium chloride and IV magnesium sulfate. Monitor electrolytes closely. Qualifiers: Encounter type: initial encounter Fracture type: closed Qualified Code(s) : S72.001A - Fracture of unspecified part of neck of right femur, initial encounter for closed fracture (2) Diabetes mellitus Current Visit: Yes Status: Chronic Assessment and plan: Blood sugars noted to be well controlled. Continue Accu-Chek blood glucose monitoring with basal bolus insulin regimen. Currently nothing by mouth for surgery. Qualifiers: Diabetes mellitus type: type 2 Diabetes mellitus assisted insulin use: with long winder tender use Diabetes mellitus complication status: with unspecified complications Qualified Code(s): E11.8 - Type 2 diabetes mellitus with unspecified complications; Z79.4 - penitentiary (current) use of insulin; Z79.4 - long term care social worker (current) use of insulin; Z79.4 - penitentiary (current) use of insulin; Z79.4 - long term care social worker (current) use of insulin (3) Hypertension Current Visit: Yes Status: Chronic Assessment and plan: Blood pressure well controlled. Continue home medications. Qualifiers: Hypertension type: essential hypertension Qualified Code(s): I10 - Essential (primary) hypertension (4) Dyslipidemia Current Visit: Yes Status: Chronic (5) DVT prophylaxis Current Visit: Yes Status: Acute (6) Anxiety and depression Current Visit: Yes Status: Chronic (7) Tobacco abuse Current Visit: Yes Status: Chronic Assessment and plan: Declines nicotine replacement therapy at this time. Continue to monitor closely. - Time Spent With Patient Total time spent is greater than 50% in coordination of care (as documented) at patient's floor/unit and/or counseling patient: - Subjective Interval history: Reports right hip pain, somewhat controlled with pain medications. Awaiting hip surgery later today. No chest pain, shortness of breath, nausea, vomiting or any other complaints. - Constitutional Vitals: Temp Pulse Resp BP Pulse Ox 98.9 F 68 16 126/73 97 10/10/17 16:37 10/10/17 16:37 10/10/17 16:37 10/10/17 16:37 10/10/17 16:37 General appearance: Present: A&O X 3, answers questions appropriately - Respiratory Respiratory exam: Present: CTAB (Coarse breath sounds bilaterally). Absent: accessory muscle use, rales, rhonchi, wheezes - Cardiovascular Cardiovascular exam: Present: RRR, +S1, +S2. Absent: diastolic murmur, gallop, rubs, systolic murmur - GI/Abdominal GI/Abdominal exam: Present: normal bowel sounds, soft (obese), no peritoneal signs. Absent: distended, tenderness - Extremities Exam Extremities exam: Present: full ROM (Restricted in right hip), warm, radial pulses palpable and symmetrical. Absent: calf tenderness, cyanotic, pedal edema Additional comments: Right lower extremity externally rotated and abducted - Neurological Exam Neurological exam: Present: CN II-XII intact, oriented X3, no focal deficits. Absent: pronater drift, facial droop, speech deficit Internal Medicine: Result - Labs CBC & Chem 7: 10/10/17 01:18 10/10/17 01:18 Labs: Short CBC 10/10/17 Range/Units 01:18 WBC 10.5 (4.3-11.1) K/mcL Hgb 12.8 (11.5-15.4) g/dL Hct 38.2 (35.3-44.9) % Plt Count 188 (140-400) K/mcL Neutrophils # 9.3 H (1.6-8.9) K/mcL BMP 10/10/17 01:18 Sodium 137 Potassium 3.3 L Chloride 100 Carbon Dioxide 27 BUN 12 Creatinine 0.70 Glucose 198 H Calcium 9.2 Cardiac Enzymes 10/09/17 10/10/17 Range/Units 19:41 01:18 Troponin I < 0.03 < 0.03 (< 0.04) ng/mL Liver Function 10/10/17 Range/Units 01:18 Total Bilirubin 0.6 (0.3-1.0) mg/dL AST 14 (13-39) Units/L ALT 10 (7-52) Units/L Alkaline Phosphatase 106 H (34-104) Units/L Albumin 3.5 (3.5-5.7) g/dL - ABG Interpretation ABG results: PT/INR, D-dimer PT 11.8 Seconds (9.4-12.1) 10/09/17 13:42 - VTE Documentation of Mechanical Device: Venous foot pump, device Consult Discharge Plan - Plan Referrals: Kevin Haque DO [Primary Care Provider] -
[2017-10-10] MEDS ORDERED: CeFAZolin Syr 2,000MG/20 ML 2,000 MG/20 ML SYRINGE IVPB ONE (18:41)
[2017-10-10] MEDS ORDERED: Morphine Sulfate/PF 5mg/10mL Vial ONE (18:55)
[2017-10-10] MEDS ORDERED: *HR* FentaNYL (PF) 100 MCG/2 ML VIAL ONE (19:17)
[2017-10-10] MEDS ORDERED: *HR* Midazolam HCl 2 MG/2 ML VIAL ONE (19:17)
[2017-10-10] MEDS ORDERED: Propofol 500 MG/50 ML INFUS..BTL ONE (19:17)
--- NOTE | 2017-10-10 20:23 | Anesthesia Procedures ---
Date of Encounter: 10/10/17 Time of Encounter: 19:45 Procedures: Anesthesia - Epidural/Spinal Patient ID/Chart reviewed: Yes Patient examined: Yes Supplemental Oxygen Rate (L/min): 3 Sedation: Versed (mg): 2 Sedation: Fentanyl (mcg): 100 Site Prep: Aseptic Technique, Sterile prep and drape, 0.5% Chlorhexidine/Alcohol Patient position: left lateral decubitus Local Anesthetic: Lidocaine 1% Amount of Local Anesthetic used: 3 Interspace Used: L3-L4 Blood: No CSF: Yes Paresthesia: No Spinal Needle Gauge: 24 Spinal Dose: 3ml 0.5% bupi +0.2 pf duramorph Procedure: IV sedation, LLD position, low back prepped and draped in sterile fashion, 3ml of 1% lido infiltrated at approx l3-4, 20g introducer, 24g sprotte needle, spinal fluid identified, some technical difficulty encounter, 3ml 0.5% bupi + 0.2 mg duramorph injected intrathecally, pt tolerated procedure.
[2017-10-10] MEDS ORDERED: *HR* Morphine 2 MG/ML SYRINGE IVP PRN (20:28)
[2017-10-10] MEDS ORDERED: Ondansetron 4 MG/2 ML VIAL IVP PRN (20:28)
[2017-10-10] MEDS ORDERED: *HR* OxyCODONE/APAP 5/325 TABLET PO PRN (20:29)
[2017-10-10] MEDS ORDERED: *HR* Promethazine 25 MG/ML VIAL IVP PRN (20:29)
[2017-10-10] MEDS ORDERED: Ondansetron 4 MG/2 ML VIAL IVP ONE (20:29)
[2017-10-10] MEDS ORDERED: Ringers Solution, Lactated 1,000 ML IVC SCH (20:30)
[2017-10-10] MEDS ORDERED: EPHEDrine 50 MG/ML VIAL ONE (20:42)
[2017-10-10] MEDS ORDERED: *HR* Propofol 200 MG/20 ML VIAL IVP ONE (21:38)
--- NOTE | 2017-10-10 22:54 | Anesthesia Evaluation Post Op ---
Date of Encounter: 10/10/17 Time of Encounter: 22:53 - Vital Signs Vital Signs: Vital Signs/O2 Sat, Most Current Temp Pulse Resp BP Pulse Ox 97.7 F 64 16 159/74 99 10/10/17 22:29 10/10/17 22:49 10/10/17 22:49 10/10/17 22:49 10/10/17 22:49 - Lungs Lungs: Clear Ascult./Percussion - Airway Airway: Non-obstructed - Cardiovascular Regular Rate - Mental Status Mental Status: Alert & Oriented, Answers Appropriately - Pain Pain Scale: 0 Pain Scale used: Numeric (1 - 10) - Nausea Vomiting Nausea Vomiting: Not Present - Hydration Hydration: NPO, Robison catheter - Discharge PostOp Status: Transfer Patient to floor
--- NOTE | 2017-10-10 23:17 | Operative Note ---
Date of procedure: 10/10/17 Pre-op diagnosis: Displaced right femoral neck fracture Post-op diagnosis: same Procedure: Hemiarthroplasty right hip Implants: Cemented Rosita size 16/17 LD/FX femoral stem with a 16 mm distal centralizer, a +8 mm adapter and a 52 mm unipolar endoprosthesis Complications: None Anesthesia: spinal Surgeon: Ayo Wellington Was there an graduate assistant athletic trainer present: No Estimated blood loss (cc): 100 Specimen: Right femoral head Condition: stable Disposition: PACU Procedure in Detail: Gross findings: Preoperative x-rays revealed a displaced right femoral neck fracture with evidence of osteopenia. There is some concern over a possible lytic lesion, a CT scan was performed which showed an acute, traumatic fracture without evidence of any lytic changes. Intraoperative findings were as anticipated. Tissue quality was excellent. There was a displaced femoral neck fracture with marked comminution especially of the posterior neck. A cemented hemiarthroplasty was performed without complicating features. Stable hip was noted after placement of the prosthesis. Procedure: Subarachnoid block was administered by anesthesia in the preoperative holding area. Patient was then transferred to the operating room where she was placed in the operating room table. She was placed on lateral recumbent position with the right side up and stabilized with a lateral hip stabilizing system. All pressure points were well-padded. Right hip was now prepped and draped in normal standard fashion for surgery. A right lateral hip incision was created and swept gently posterior proximal. Dissection was carried through the subcutaneous knees adipose tissue down the level of the fascia kim which was cleared split length the incision. Care was placed maintaining exposure. Anterior abductors were taken down off the trochanter in a subperiosteal manner and tagged with #2 FiberWire suture for traction of later repair. Capsule was likewise taken down off the trochanter and superior capsulotomy was made up to the level of the acetabulum. Femoral neck osteotomy was made. The head was now removed from the acetabulum and sized to a 51-52 mm. Acetabulum was now cleaned of clot and debris with pulsatile lavage followed by formal sizing with the appropriate head size. 52 mm was selected. Attention was turned to the femur. Box osteotome was utilized to open up the medial trochanter. T-handled reamers passed on the femoral canal. The femur was now sequentially rasped up to and including the size 16 stem this was used to performed calcar reaming. This is followed by trialing right +8 mm neck length gave optimal fit and stability. All trial components were removed. Sponge was packed in the acetabulum. Distal centralizer was placed and then the femoral canal was irrigated with saline solution and a power lavage followed by drying with a combination of suction and femoral sponge. At the back table the prosthesis with the centralizer was assembled. This is followed by mixing the cement. Cement was then placed into the canal which was filled in a retrograde manner and then pressurized proximally. The stem was placed into the canal and impacted until the collar sat firmly on the medial femoral calcar. Compression was maintained upon the implants until cement had fully hardened. Final cement cleanup was performed and washout of the acetabulum was performed. Eller taper on the femoral stem was then cleaned and dried and then the adapter and head were then placed and impacted with 3 sharp blows of the mallet. Hip was reduced. Stable reduction was noted without complicating features. At this time attention was paid to closure. Capsulotomy was closed #1 Vicryl. Abductors were repaired to the trochanter with the previously placed #2 FiberWire. This is reinforced with #2 Quill. The fascia kim was then closed with several [id number] stitch of #2 FiberWire followed by running #2 Quill. Deep subtendinous tissue was closed with running #1 Vicryl. Medius obtained his tissue was closed with multiple inverted interrupted 2-0 undyed Vicryl followed by skin approximation with a running septic her stitches of 30 strata fix followed by skin glue and then biocclusive waffle foam. Patient was now placed into an abduction pillow on the operating table. Patient was now transferred from the operating table hospital bed and then transported to the postanesthesia care unit in stable and satisfactory condition. All sponge needle evidence for counts are correct. Specimens for pathology was a femoral head which was sent due to the concerns initially of a lytic lesion.
[2017-10-11] MEDS ORDERED: Dextrose Gel 15 GM/37.5 ML TUBE PO PRN ×2 (00:15)
[2017-10-11] MEDS ORDERED: Ondansetron 4 MG/2 ML VIAL IVP PRN ×2 (00:15→14:30)
[2017-10-11] MEDS ORDERED: D5% in Water 1,000 ML IVC PRN (00:15)
[2017-10-11] MEDS ORDERED: Naloxone 0.4 MG/ML INJ IVP PRN (00:15)
[2017-10-11] MEDS ORDERED: *HR* Dextrose 50 % in Water (Syg) 50 ML SYRINGE IVP PRN (00:15)
[2017-10-11] MEDS ORDERED: CeFAZolin Syringe 2,000MG/20 ML SYR IVPB SCH (00:15)
[2017-10-11] MEDS ORDERED: *HR* Morphine 2 MG/ML SYRINGE IVP PRN (00:15)
[2017-10-11] MEDS ORDERED: *HR* Promethazine 25 MG/ML VIAL IVP PRN (00:15)
[2017-10-11] MEDS ORDERED: Ringers Solution, Lactated 1,000 ML IVC SCH (00:15)
[2017-10-11] MEDS ORDERED: *HR* OxyCODONE/APAP 5/325 TABLET PO PRN (00:50)
[2017-10-11 01:10] LABS: Basophils # 0.1 K/mcL (0.0-0.2); Basophils % 0.5 %; Eosinophils # 0.3 K/mcL (0.0-0.6); Eosinophils % 2.3 %; Hematocrit 40.3 % (35.3-44.9); Hemoglobin 13.1 g/dL (11.5-15.4); Immature Granulocytes % 0.5 % (0-4); Immature Platelets 5.9 % (1.1-6.1); Lymphocytes # 0.8 K/mcL (0.6-4.6); Lymphocytes % 6.3 %; Mean Corpuscular HGB Conc 32.5 g/dL (31.6-35.5); Mean Corpuscular Hemoglobin 27.9 pg (28.0-33.3); Mean Corpuscular Volume 85.9 fL (83.0-100.0); Mean Platelet Volume 11.7 fL (9.4-12.4); Monocytes # 0.8 K/mcL (0.0-1.3); Neutrophils # 10.6 K/mcL (1.6-8.9); Platelet Count 165 K/mcL (140-400); Red Blood Count 4.69 M/mcL (3.82-4.97); Segmented Neutrophils % 84.4 %
[2017-10-11] MEDS: ceFAZolin 2,000 MG in 0.9 % Sodium Chloride 100 ML IVPB SCH ×2 (01:38→08:21)
[2017-10-11 03:18] LABS: BUN/Creatinine Ratio 26 (6-26); Blood Urea Nitrogen 16 mg/dL (8-23); Calcium 8.8 mg/dL (8.6-10.3); Carbon Dioxide 25 mEq/L (23-29); Chloride 104 mEq/L (98-107); Glucose 203 mg/dL (70-105); Magnesium 1.6 mg/dL (1.6-2.6); Osmolality,Calculated 293 (280-300); Potassium 3.9 mEq/L (3.5-5.1); Sodium 138 mEq/L (136-145); eGFR For African Americans > 60 (> 60); eGFR For Non-African Americans > 60 (> 60)
[2017-10-11] MEDS: *HR* Heparin 5,000 UNIT/ML VIAL SQ SCH ×2 (05:24→18:42)
[2017-10-11] MEDS: Lisinopril 20 MG TABLET PO SCH ×2 (08:16→20:25)
[2017-10-11] MEDS: amLODIPine 5 MG TABLET PO SCH (08:17)
[2017-10-11] MEDS: Insulin LISPRO 300 UNITS/3 ML VIAL SQ SCH ×4 (08:35→18:44)
[2017-10-11] MEDS: Insulin DETEMIR 100 UNIT/ML X5UNITS SQ SCH (08:37)
[2017-10-11] MEDS ORDERED: Cholecalciferol (D-3) 1,000 UNIT TABLET PO SCH (09:00)
[2017-10-11] MEDS: Ketorolac 30 MG/ML VIAL IVP PRN (15:24)
--- NOTE | 2017-10-11 16:02 | Internal Med Progress Note ---
Date of Encounter: 10/11/17 Time of Encounter: 14:30 - Assessment and plan (1) Hip fracture, right Current Visit: Yes Status: Acute Assessment and plan: Pelvic x-ray showed acute fracture of right femur oral neck with possible underlying osteolytic lesion. CT abdomen/pelvis was done which confirmed the fracture but no evidence of osteolytic lesion except demineralization. Orthopedic surgery on board, s/p right hip hemiarthroplasty POD- 1. Continue supportive care, pain control with when necessary Percocet. PT/OT evaluation noted- recommend IP rehab, social work specialist consulted. Improved hypokalemia and hypomagnesemia. Qualifiers: Encounter type: initial encounter Fracture type: closed Qualified Code(s) : S72.001A - Fracture of unspecified part of neck of right femur, initial encounter for closed fracture (2) Diabetes mellitus Current Visit: Yes Status: Chronic Assessment and plan: Blood sugars noted to be fairly controlled. Continue Accu-Chek blood glucose monitoring with basal bolus insulin regimen. Diabetic diet. 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 Continue home medications. Qualifiers: Hypertension type: essential hypertension Qualified Code(s): I10 - Essential (primary) hypertension (4) Dyslipidemia Current Visit: Yes Status: Chronic (5) DVT prophylaxis Current Visit: Yes Status: Acute Assessment and plan: Heparin (6) Anxiety and depression Current Visit: Yes Status: Chronic (7) Tobacco abuse Current Visit: Yes Status: Chronic - Time Spent With Patient Total time spent is greater than 50% in coordination of care (as documented) at patient's floor/unit and/or counseling patient: - Subjective Interval history: Reports nausea and vomiting; right hip pain; tolerates clear liquids; able to participate in PT; - Constitutional Vitals: Temp Pulse Resp BP Pulse Ox 97.8 F 76 18 117/73 97 10/11/17 15:12 10/11/17 15:12 10/11/17 15:12 10/11/17 15:12 10/11/17 15:12 General appearance: Present: A&O X 3, answers questions appropriately - Respiratory Respiratory exam: Present: CTAB. Absent: accessory muscle use, rales, rhonchi, wheezes - Cardiovascular Cardiovascular exam: Present: RRR, +S1, +S2. Absent: diastolic murmur, gallop, rubs, systolic murmur - GI/Abdominal GI/Abdominal exam: Present: normal bowel sounds, soft (obese), no peritoneal signs. Absent: distended, tenderness - Extremities Exam Extremities exam: Present: warm, radial pulses palpable and symmetrical. Absent : calf tenderness, cyanotic, pedal edema Additional comments: right lateral hip surgical incision clean and dry Internal Medicine: Result - Labs CBC & Chem 7: 10/11/17 00:46 10/11/17 02:45 Labs: Short CBC 10/11/17 Range/Units 00:46 WBC 12.6 H (4.3-11.1) K/mcL Hgb 13.1 (11.5-15.4) g/dL Hct 40.3 (35.3-44.9) % Plt Count 165 (140-400) K/mcL Neutrophils # 10.6 H (1.6-8.9) K/mcL BMP 10/11/17 02:45 Sodium 138 Potassium 3.9 Chloride 104 Carbon Dioxide 25 BUN 16 Creatinine 0.61 Glucose 203 H Calcium 8.8 - ABG Interpretation ABG results: PT/INR, D-dimer PT 11.8 Seconds (9.4-12.1) 10/09/17 13:42 - Impressions Impressions Hip X-Ray 10/10/17 22:39 IMPRESSION: Status post right hip arthroplasty. D/ / Jak Flores MD / Jak Flores MD Interpreting Provider: Jak Flores MD - VTE Documentation of Mechanical Device: Venous foot pump, device Consult Discharge Plan - Plan Referrals: Kevin Haque DO [Primary Care Provider] -
[2017-10-11] MEDS: *HR* OxyCODONE/APAP 5/325 TABLET PO PRN (18:41)
[2017-10-11] MEDS: Cholecalciferol (D-3) 1,000 UNIT TABLET PO SCH (18:41)
--- NOTE | 2017-10-11 21:26 | Orthopedics Progress Note ---
Date of Encounter: 10/11/17 Time of Encounter: 21:24 Subjective Principal diagnosis: Right hip fracture Interval history: 10/11/2017. Patient postop day #1 hemiarthroplasty right hip. Patient is having hip soreness. No neurovascular complaints. Vital signs are stable. Patient is afebrile. Hip dressing is clean and dry. Leg lengths are excellent. Hemoglobin is 13.1. White blood cell count minor elevation at 12 platelet count normal. Postop x-ray reveals well seated and positioned cemented hemiarthroplasty Impression: POD #1 hemiarthroplasty right hip Recommendation: Patient can be weightbearing as tolerated is noted. Need to continue with total hip arthroplasty precautions. Awaiting social worker clinical for discharge planning, patient anticipating short-term rehabilitation stay at local extended care facility. Orthopedic status is stable for discharge at any time. Patient can shower with intact Bioclusive dressing. Objective Vital signs: Vital Signs Temp Pulse Resp BP Pulse Ox 10/11/17 19:14 98.3 F 78 18 112/69 97 10/11/17 15:12 97.8 F 76 18 117/73 97 10/11/17 11:55 98.5 F 79 124/72 95 10/11/17 06:48 98.1 F 78 16 118/76 99 10/11/17 04:12 97.9 F 64 18 112/70 100 10/11/17 00:51 67 16 130/78 99 10/10/17 23:51 98.0 F 72 18 148/80 100 10/10/17 23:20 63 18 129/75 100 10/10/17 23:15 97.7 F 66 16 147/79 99 10/10/17 22:59 97.7 F 64 16 153/74 99 10/10/17 22:49 64 16 159/74 99 10/10/17 22:39 65 16 157/88 99 10/10/17 22:29 97.7 F 66 18 140/74 96 Intake and Output 10/11/17 10/11/17 10/11/17 07:59 15:59 23:59 Intake Total 400 / 400 Output Total 400 / 400 Balance 0 / 0 Intake: IV Fluids 200 / 200 Ancef 2,000 MG In 0.9 % Sodium 200 / 200 Chloride 100 ML @ 25 mls/hr IVPB Q8H [facility] Rx#:[id number] Oral 200 / 200 Output: Catheter 400 / 400 Other: Meal Lunch Percent of Meal Consumed 25% Blood Glucose* 194 199 243 Incision: clean and dry - Diagnostic Results Hip x-ray: image reviewed - Labs CBC & BMP: 10/11/17 00:46 10/11/17 02:45 Labs: Abnormal lab results WBC 12.6 K/mcL (4.3-11.1) H 10/11/17 00:46 MCH 27.9 pg (28.0-33.3) L 10/11/17 00:46 Neutrophils # 10.6 K/mcL (1.6-8.9) H 10/11/17 00:46 Glucose 203 mg/dL (70-105) H 10/11/17 02:45 POC Glucose 129 mg/dL (70-99) H 10/10/17 16:39 Alkaline Phosphatase 106 Units/L (34-104) H 10/10/17 01:18 B-Natriuretic Peptide 109 pg/mL (Less than 100) H 10/10/17 01:18 HDL Cholesterol 37 mg/dL (40-59) L 10/10/17 01:18 - VTE Documentation of Mechanical Device: Venous foot pump, device Consult Discharge Plan - Plan Referrals: Kevin Haque DO [Primary Care Provider] -
[2017-10-12] MEDS: Ketorolac 30 MG/ML VIAL IVP PRN (02:35)
[2017-10-12] MEDS: *HR* OxyCODONE/APAP 5/325 TABLET PO PRN ×2 (04:42→15:27)
[2017-10-12] MEDS: *HR* Heparin 5,000 UNIT/ML VIAL SQ SCH (05:56)
[2017-10-12] MEDS: Lisinopril 20 MG TABLET PO SCH (08:19)
[2017-10-12] MEDS: Cholecalciferol (D-3) 1,000 UNIT TABLET PO SCH (08:20)
[2017-10-12] MEDS: amLODIPine 5 MG TABLET PO SCH (08:20)
[2017-10-12] MEDS: Insulin DETEMIR 100 UNIT/ML X5UNITS SQ SCH (08:20)
[2017-10-12] MEDS: Insulin LISPRO 300 UNITS/3 ML VIAL SQ SCH ×4 (08:21→17:19)
[2017-10-12 11:08] VITALS: BP 129/64
--- NOTE | 2017-10-12 17:25 | Discharge Summary ---
- NOTES TO OUTPATIENT PROVIDER Notes to Outpatient Provider: right hip hemiarthroplasty Orders not resulted at time of discharge: Pending orders 10/10/17 22:11 Surgical Pathology [PTH] Routine Date of Encounter: 10/12/17 Time of Encounter: 17:24 - Discharge Diagnosis (1) Hip fracture, right Priority: Primary Status: Acute Qualifiers: Encounter type: initial encounter Fracture type: closed Qualified Code(s) : S72.001A - Fracture of unspecified part of neck of right femur, initial encounter for closed fracture (2) Diabetes mellitus Priority: Secondary Status: Chronic Qualifiers: Diabetes mellitus type: type 2 Diabetes mellitus senior care insulin use: with exterminator termite use Diabetes mellitus complication status: with unspecified complications Qualified Code(s): E11.8 - Type 2 diabetes mellitus with unspecified complications; Z79.4 - [facility] (current) use of insulin; 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 Oakley is a 62 year old female with the above medical problems, who was admitted with right hip pain status post mechanical fall at home. Right hip x- ray showed acute right femoral neck fracture, with an underlying osteolytic lesion. CT abdomen/pelvis showed right subcapital femoral neck fracture, however no evidence of a bony lesion is detected. Orthopedic surgery was consulted and patient underwent right hip hemiarthroplasty on 10/10/2017. Patient had an uneventful postoperative recovery. Physical and occupational therapy evaluation recommend inpatient rehabilitation and patient is currently medically stable for discharge. She is being discharged on subcutaneous Lovenox for continued DVT prophylaxis for hip surgery. Discharge discussed with: patient - Time Spent with Patient Total time spent providing and/or coordinating discharge services: Greater than 30 minutes (45 min) - Discharge Medications Prescriptions: Oxycodone HCl/Acetaminophen [Percocet 5-325 mg Tablet] 1 tab PO Q6H PRN 5 Days # 10 tablet PRN Reason: Pain Home Medications: Atenolol 100 mg PO DAILY 10/09/17 [History] Atorvastatin Calcium [Lipitor] 20 mg PO QPM 10/09/17 [History] Ergocalciferol (VITAMIN D2) [Vitamin D2] 50,000 unit PO QWEEK 10/09/17 [History] Glimepiride [Amaryl] 4 mg PO BID 10/09/17 [History] Insulin ASPART [Novolog Flexpen] 10 unit SQ 1700 10/09/17 [History] Insulin Glargine,Hum.rec.anlog [Lantus Solostar] 25 unit SQ QAM 10/09/17 [ History] Lisinopril [Zestril] 40 mg PO BID 10/09/17 [History] Omeprazole [PriLOSEC] 20 mg PO DAILY 10/09/17 [History] Pioglitazone HCl [Actos] 45 mg PO DAILY 10/09/17 [History] amLODIPine [Norvasc] 5 mg PO DAILY 10/09/17 [History] Enoxaparin [Lovenox] 30 mg SQ Q12HCO #20 syringe 10/12/17 [Rx] Oxycodone HCl/Acetaminophen [Percocet 5-325 mg Tablet] 1 tab PO Q6H PRN 5 Days # 10 tablet 10/12/17 [Rx] Allergies/Adverse Reactions: 3 Allergy/AdvReac Type Severity Reaction Status Date / Time No Known Allergies Allergy Verified 10/09/17 10:53 Date of admission: 10/09/17 12:29 Primary care physician: Kuldeep Blank Consults: 10/09/17 13:22 Consult to Oncology Hematology [CONS] Routine Consulting Provider: Jocelyne Lund Reason for Consult: right sided pathological hip fracture. Call Completed: Yes 10/11/17 00:15 Consult to Occupational Therapy [CONS] Routine Comment: Evaluate, develop and implement POC Reason for Consult: adls Does patient have active BEDREST order?: No Is patient medically & hemodynamically stable?: Yes Consult to Physical Therapy [CONS] Stat Comment: Evaluate, develop and implement POC Reason for Consult: hip Does patient have active BEDREST order?: No Is patient medically & hemodynamically stable?: Yes Consult to Air Tube Releaser [CONS] Routine Reason for SW Consult: dc Discharging clinician: [place] Woods Anticipated date of discharge: 10/12/17 - Constitutional Vitals: Temp Pulse Resp BP Pulse Ox 98.5 F 76 16 129/64 95 10/12/17 09:58 10/12/17 09:58 10/12/17 09:58 10/12/17 09:58 10/12/17 09:58 General appearance: Present: A&O X 3, answers questions appropriately - Cardiovascular Cardiovascular exam: Present: RRR, +S1, +S2. Absent: diastolic murmur, gallop, rubs, systolic murmur - Patient Status Disposition: Transfer SNF Condition: Fair Functional capacity at discharge: uses cane/walker Overall status at discharge: patient is progressing back to baseline - Discharge Instructions Instructions: Diabetes Mellitus Type 2 in Adults (DC), Chronic Hypertension (DC ) Follow Up With: Kevin Haque DO [Primary Care Provider] - Additional Instructions: Discharge Instructions: Total Hip Replacement Please call [facility] ([phone]), your Primary Care Physician, or report to the Emergency Room if you have any of the following symptoms: Nausea, vomiting, fever greater that 101.5, swelling, chest pain, shortness of breath, increased pain/redness/drainage/odor for your incision site, numbness/ tingling, or any other concerning symptoms. ACTIVITY:Weight-bearing as tolerated for 8 weeks with hip dislocation precautions that physical therapy taught you. You may progress as tolerated under the guidance of your physical therapist. You do not need to sleep with a pillow between your legs. You can also seep on the operative side or on your stomach. MEDICATIONS: Upon discharge resume your home medications. Take all the medications as prescribed. Take a stool softener if taking narcotic pain medications. Stool softeners are only effective if you drink enough fluids. Drink 6-8 glass of water or fluids a day, unless this is not allowed for another health problem. Despite using stool softeners, if you haven't had a bowel movement in 3 days, please switch to a gentle laxative. Gentle laxatives are sold over the counter. You should have a bowel movement within 24 hours, if not call the office. You will be discharged from the hospital with a prescription for pain medication. You are encouraged to decrease the use of narcotic pain medication as tolerated. Should you require a refill, please call the office. [facility] prescribes narcotic pain medication for only 4-6 weeks after surgery. If you require pain medication beyond this time period, you may be referred to your Primary Care Physician or to the Pain Clinic for further evaluation. Plan ahead for refills on pain medication as many narcotics either need to be picked up at the office or mailed. It is best to call 48-72 hours in advance of needing a prescription refill so you don't run out of medication. To help control the post-operative pain, you may take NSAIDs (Aleve,Advil, Motrin, ibuprofen, naprosyn) or Tylenol as prescribed on the bottle in addition to the pain medication. ANTICOAGULATION (blood thinners): Continue your Aspirin, Lovenox or Coumadin as prescribed to help prevent a blood clot in the leg or in the lungs. As long as your incision remains dry and you tolerate the NSAIDs (Aleve, Advil, Motrin, Ibuprofen, Naprosyn), it is OK to use the NSAIDS while you are taking your anticoagulation medication. Should your incision start to drain, stop the NSAID and contact our office. Common symptoms of blood clot in the legs include: localized pain, swelling, calf tenderness, redness or discoloration of the skin. Blood clot in the lung symptoms include: shortness of breath, rapid pulse, sweating, and chest pain that worsens with deep breathing, coughing up blood, lightheadedness, feelings of anxiety. If you experience any of these symptoms notify your physician immediately, go to the emergency room, or if having trouble breathing, call 911. WOUND CARE: Leave the dressing on for 7 to 10days. You may change the dressing if it is saturated greater than 50%. Do not get the dressing wet at anytime. Wash your hands with antibacterial soap, rinse and dry prior to any wound care. If you have jackie the visiting nurse or rehab facility can remove the stapes 10-14 days after surgery and place steri-strips across the wound. Leave the steri-strips in place until they fall off on their own. You may let water from the shower run on top of the steri-strips. If you do not have a visiting nurse or rehab facility, you will need to return to the office at 10-14 days for the jackie to be removed. If you have itching or redness around the dressing call the office. FOLLOW-UP: Please follow up with your surgeon in the orthopedic clinic in 6 weeks from the day of surgery. If you have jackie that need to be removed, you will need to come back to the office in 10-14 days from the day of surgery. - Diet and Activity Activity: as per physical therapy Diet: diabetic diet, low fat, low cholesterol, low salt diet - VTE Documentation of Mechanical Device: Intermittent pneumatic compression device
--- NOTE | 2017-10-12 17:31 | Physician Discharge Referral ---
ExtendedCare Referral Info Transfer To: [facility] Provider in Charge: [place] Provider in Charge after Transfer: PCP Institutional Level of Care: Skilled - Diagnosis (1) Hip fracture, right Priority: Primary Status: Acute (2) Diabetes mellitus Priority: Secondary Status: Chronic (3) Hypertension Priority: Secondary Status: Chronic (4) Dyslipidemia Priority: Secondary Status: Chronic (5) Anxiety and depression Priority: Secondary Status: Chronic (6) Tobacco abuse Priority: Secondary Status: Chronic Expected Duration of Placement: 3 weeks Prognosis: Good Aware of Diagnosis: Patient Aware of Prognosis: Patient - Transfer Medications Prescriptions: Oxycodone HCl/Acetaminophen [Percocet 5-325 mg Tablet] 1 tab PO Q6H PRN 5 Days # 10 tablet PRN Reason: Pain Home Medications: Atenolol 100 mg PO DAILY 10/09/17 [History] Atorvastatin Calcium [Lipitor] 20 mg PO QPM 10/09/17 [History] Ergocalciferol (VITAMIN D2) [Vitamin D2] 50,000 unit PO QWEEK 10/09/17 [History] Glimepiride [Amaryl] 4 mg PO BID 10/09/17 [History] Insulin ASPART [Novolog Flexpen] 10 unit SQ 1700 10/09/17 [History] Insulin Glargine,Hum.rec.anlog [Lantus Solostar] 25 unit SQ QAM 10/09/17 [ History] Lisinopril [Zestril] 40 mg PO BID 10/09/17 [History] Omeprazole [PriLOSEC] 20 mg PO DAILY 10/09/17 [History] Pioglitazone HCl [Actos] 45 mg PO DAILY 10/09/17 [History] amLODIPine [Norvasc] 5 mg PO DAILY 10/09/17 [History] Enoxaparin [Lovenox] 30 mg SQ Q12HCO #20 syringe 10/12/17 [Rx] Oxycodone HCl/Acetaminophen [Percocet 5-325 mg Tablet] 1 tab PO Q6H PRN 5 Days # 10 tablet 10/12/17 [Rx] Allergies/Adverse Reactions: 3 Allergy/AdvReac Type Severity Reaction Status Date / Time No Known Allergies Allergy Verified 10/09/17 10:53 - Respiratory Orders Smoking Cessation: Smoking cessation has been advised. For more information, call the [place] Tobacco Quit Line at 1-447-UNJR-NOW. - Advance Directives Code Status: Full Code - Mobility Orders Ambulate - Rehabiliation Orders Rehab Potential: Good Rehab Orders: ROM Exercises, Evaluation for Physical Therapy, Evaluation for Occupational Therapy - Diet Orders No Concentrated Sweets (diabetic), Cardiac CERTIFICATION: I certify that the transfer of the above named patient to an Extended Care Facility is necessary for the continuing treatment of the diagnosis listed. The above information is true and accurate reflection of patient's current condition. Confidential - Redisclosure prohibited without a patient's written consent.
[2017-10-12] MEDS ORDERED: *HR* Enoxaparin 30 MG/0.3 ML SYRINGE SQ SCH (18:00)
--- NOTE | 2017-10-13 15:08 | Electrocardiograph Report ---
[place] [id number] Test Date: 2017-10-10 Pat Name: Daina Oakley Department: 114 Room: [facility] Gender: F Record Pressman: : 1955 Requested By: Rachel Woods Order Number: [id number] Reading MD: Gelacio Haro Measurements Intervals [place] Rate: 70 P: 53 MA: 154 QRS: 74 QRSD: 98 T: 37 QT: 398 QTc: 418 Interpretive Statements SINUS RHYTHM NONSPECIFIC T-WAVE ABNORMALITY Electronically Signed On 10-13-2017 15:06:33 EDT by Gelacio Haro
== END 2017-10-12 18:33 | DRG 301 ==
LOC: EMEROO 10:48 → 3ANU 12:29 → SUATTDRO 12:29 → 3ANU 12:54 → 3NENU 16:38
PROVIDERS: ADMIT Internal Medicine; ATTEND Internal Medicine

== ENCOUNTER 2020-04-03 01:35 | Inpatient (IN) ==
[2020-04-03] MEDS ORDERED: Aspirin 81 MG TAB.CHEW PO ONE (02:04)
[2020-04-03 03:20] LABS: INR 1.1
[2020-04-03 03:22] LABS: Activated Partial Thrombo Time 33.4 Seconds (26.0-36.0)
[2020-04-03 03:23] LABS: Basophils % 0.4 %; Eosinophils # 0.1 K/mcL (0.0-0.6); Eosinophils % 0.8 %; Hematocrit 35.8 % (35.3-44.9); Hemoglobin 11.1 g/dL (11.5-15.4); Immature Granulocytes % 0.4 % (0-4); Lymphocytes # 0.7 K/mcL (0.6-4.6); Lymphocytes % 9.1 %; Mean Corpuscular Volume 90.4 fL (83.0-100.0); Monocytes # 0.5 K/mcL (0.0-1.3); Monocytes % 7.2 %; Neutrophils # 5.9 K/mcL (1.6-8.9); Platelet Count 182 K/mcL (140-400); Red Blood Count 3.96 M/mcL (3.82-4.97); Red Cell Distribution Width 13.8 % (11.5-14.5); Segmented Neutrophils % 82.1 %; White Blood Count 7.2 K/mcL (4.3-11.1)
[2020-04-03 03:44] LABS: Alanine Aminotransferase 8 Units/L (7-52); Albumin 3.9 g/dL (3.5-5.7); Albumin/Globulin Ratio 1.2 (1.1-2.2); Alkaline Phosphatase 128 Units/L (34-104); Aspartate Amino Transferase 13 Units/L (13-39); BUN/Creatinine Ratio 14 (6-26); Bilirubin,Direct 0.2 mg/dL (0.0-0.2); Bilirubin,Indirect 0.4 mg/dL (0.0-1.0); Bilirubin,Total 0.6 mg/dL (0.3-1.0); Blood Urea Nitrogen 12 mg/dL (8-23); Calcium 9.7 mg/dL (8.6-10.3); Carbon Dioxide 27 mEq/L (23-29); Chloride 103 mEq/L (98-107); Globulin 3.2 g/dL (2.4-3.5); Glucose 295 mg/dL (70-105); Osmolality,Calculated 303 (280-300); Potassium 3.3 mEq/L (3.5-5.1); Sodium 141 mEq/L (136-145); Total Protein 7.1 g/dL (6.4-8.9); Troponin I < 0.03 ng/mL (< 0.04); eGFR For African Americans > 60 (> 60); eGFR For Non-African Americans > 60 (> 60)
[2020-04-03] MEDS ORDERED: Furosemide 40 MG/4 ML VIAL IVP ONE (04:46)
[2020-04-03] MEDS ORDERED: *HR* Promethazine 25 MG/ML VIAL IVP PRN (06:09)
[2020-04-03] MEDS ORDERED: Naloxone 0.4 MG/ML INJ IVP PRN (06:09)
[2020-04-03] MEDS ORDERED: Perflutren Lipid Microsphere 1.3 ML in 0.9 % Sodium Chloride 8.7 ML IVP PRN (06:10)
[2020-04-03] MEDS ORDERED: D5% in Water 1,000 ML IVC PRN (06:11)
[2020-04-03] MEDS ORDERED: Dextrose Gel 15 GM/37.5 ML TUBE PO PRN ×2 (06:11)
[2020-04-03] MEDS ORDERED: *HR* Dextrose 50 % in Water (Vial) 50 ML VIAL IVP PRN (06:11)
[2020-04-03 06:57] LABS: Bacteria,Urine Few per hpf (None-Few); Bilirubin,Urine Negative (Negative); Blood,Urine Large (Negative); Budding Yeast,Urine Few per hpf (None Seen); Clarity,Urine Turbid (Clear); Color,Urine Light-Yellow (Yellow); Glucose,Urine (UA) 500 mg/dL (Normal); Ketones,Urine Negative (Negative); Leukocyte Esterase,Urine Large (Negative); Nitrite,Urine Negative (Negative); Protein,Urine 30 mg/dL (Neg-Trace); RBC,Urine TNTC per hpf (0-3); Specific Gravity,Urine 1.009 (1.010-1.025); Urobilinogen,Urine Normal (Normal); WBC,Urine TNTC per hpf (0-3)
[2020-04-03] MEDS: Insulin LISPRO 300 UNITS/3 ML VIAL SQ SCH ×4 (10:10→20:05)
[2020-04-03] MEDS: Insulin DETEMIR 100 UNIT/ML X5UNITS SQ SCH (10:17)
[2020-04-03] MEDS: cefTRIAXone 1,000 MG in Water for inj. (sterile) 10 ML IVP SCH (10:17)
[2020-04-03 11:54] LABS: Estimated Average Glucose 163 mg/dl
[2020-04-03] MEDS: Furosemide 40 MG/4 ML VIAL IVP SCH ×2 (14:28→19:46)
[2020-04-03] MEDS: Acetaminophen 325 MG TABLET PO PRN (20:03)
[2020-04-04 05:21] LABS: Basophils % 0.2 %; Eosinophils # 0.1 K/mcL (0.0-0.6); Eosinophils % 0.8 %; Hematocrit 31.9 % (35.3-44.9); Immature Granulocytes % 0.4 % (0-4); Lymphocytes # 1.6 K/mcL (0.6-4.6); Lymphocytes % 18.7 %; Mean Corpuscular HGB Conc 31.3 g/dL (31.6-35.5); Mean Corpuscular Hemoglobin 28.5 pg (28.0-33.3); Mean Corpuscular Volume 90.9 fL (83.0-100.0); Monocytes # 0.8 K/mcL (0.0-1.3); Neutrophils # 6.1 K/mcL (1.6-8.9); Platelet Count 169 K/mcL (140-400); Red Blood Count 3.51 M/mcL (3.82-4.97); Red Cell Distribution Width 13.9 % (11.5-14.5); Segmented Neutrophils % 70.9 %; White Blood Count 8.6 K/mcL (4.3-11.1)
[2020-04-04 05:41] LABS: BUN/Creatinine Ratio 18 (6-26); Blood Urea Nitrogen 14 mg/dL (8-23); Calcium 8.7 mg/dL (8.6-10.3); Carbon Dioxide 30 mEq/L (23-29); Chloride 103 mEq/L (98-107); Glucose 123 mg/dL (70-105); Magnesium 1.4 mg/dL (1.6-2.6); Osmolality,Calculated 296 (280-300); Phosphorous 3.5 mg/dL (2.7-4.5); Potassium 3.4 mEq/L (3.5-5.1); Sodium 142 mEq/L (136-145); eGFR For African Americans > 60 (> 60); eGFR For Non-African Americans > 60 (> 60)
[2020-04-04] MEDS ORDERED: *HR* Enoxaparin 40 MG/0.4 ML SYRINGE SQ SCH (06:00)
[2020-04-04] MEDS: Insulin LISPRO 300 UNITS/3 ML VIAL SQ SCH ×4 (07:27→20:46)
[2020-04-04] MEDS: cefTRIAXone 1,000 MG in Water for inj. (sterile) 10 ML IVP SCH (07:48)
[2020-04-04] MEDS: Furosemide 40 MG/4 ML VIAL IVP SCH ×2 (07:48→21:13)
[2020-04-04] MEDS: Insulin DETEMIR 100 UNIT/ML X5UNITS SQ SCH (07:49)
[2020-04-04] MEDS: Aspirin 81 MG TAB.CHEW PO SCH (07:49)
[2020-04-04] MEDS ORDERED: Isovue-370 500 ML BOTTLE IVP ONE ×2 (07:54→09:44)
[2020-04-04] MEDS: Acetaminophen 325 MG TABLET PO PRN (14:28)
[2020-04-05] MEDS: Insulin DETEMIR 100 UNIT/ML X5UNITS SQ SCH (08:22)
[2020-04-05] MEDS: Furosemide 40 MG/4 ML VIAL IVP SCH (08:22)
[2020-04-05] MEDS: cefTRIAXone 1,000 MG in Water for inj. (sterile) 10 ML IVP SCH (08:22)
[2020-04-05] MEDS: Insulin LISPRO 300 UNITS/3 ML VIAL SQ SCH ×4 (08:22→20:30)
[2020-04-05] MEDS: Aspirin 81 MG TAB.CHEW PO SCH (08:23)
[2020-04-05 09:22] LABS: BUN/Creatinine Ratio 20 (6-26); Blood Urea Nitrogen 14 mg/dL (8-23); Carbon Dioxide 32 mEq/L (23-29); Chloride 98 mEq/L (98-107); Glucose 195 mg/dL (70-105); Osmolality,Calculated 292 (280-300); Potassium 3.5 mEq/L (3.5-5.1); Sodium 138 mEq/L (136-145); eGFR For African Americans > 60 (> 60); eGFR For Non-African Americans > 60 (> 60)
[2020-04-05] MEDS ORDERED: *HR* OxyCODONE/APAP 5/325 TABLET PO PRN (15:26)
[2020-04-05] MEDS ORDERED: ALPRAZolam 0.25 MG TABLET PO PRN (15:26)
[2020-04-06] MEDS: Acetaminophen 325 MG TABLET PO PRN (00:39)
[2020-04-06 05:24] LABS: BUN/Creatinine Ratio 19 (6-26); Blood Urea Nitrogen 14 mg/dL (8-23); Calcium 8.9 mg/dL (8.6-10.3); Carbon Dioxide 32 mEq/L (23-29); Chloride 101 mEq/L (98-107); Glucose 181 mg/dL (70-105); Osmolality,Calculated 293 (280-300); Potassium 3.5 mEq/L (3.5-5.1); Sodium 139 mEq/L (136-145); eGFR For African Americans > 60 (> 60); eGFR For Non-African Americans > 60 (> 60)
[2020-04-06] MEDS: cefTRIAXone 1,000 MG in Water for inj. (sterile) 10 ML IVP SCH (08:51)
[2020-04-06] MEDS: Furosemide 40 MG/4 ML VIAL IVP SCH ×2 (08:52→20:37)
[2020-04-06] MEDS: atenoloL 50 MG TABLET PO SCH (08:53)
[2020-04-06] MEDS: Valsartan 160 MG TABLET PO SCH (08:53)
[2020-04-06] MEDS: amLODIPine 5 MG TABLET PO SCH (08:53)
[2020-04-06] MEDS: Aspirin 81 MG TAB.CHEW PO SCH (08:53)
[2020-04-06] MEDS: Insulin LISPRO 300 UNITS/3 ML VIAL SQ SCH ×4 (08:55→20:36)
[2020-04-06] MEDS: Insulin DETEMIR 100 UNIT/ML X5UNITS SQ SCH (08:55)
[2020-04-06 12:28] LABS: Hematocrit 33.3 % (35.3-44.9); Hemoglobin 10.6 g/dL (11.5-15.4)
[2020-04-07 06:19] LABS: Hematocrit 33.5 % (35.3-44.9); Hemoglobin 10.5 g/dL (11.5-15.4); Mean Corpuscular HGB Conc 31.3 g/dL (31.6-35.5); Mean Corpuscular Hemoglobin 28.5 pg (28.0-33.3); Mean Platelet Volume 10.3 fL (9.4-12.4); Platelet Count 202 K/mcL (140-400); Red Blood Count 3.68 M/mcL (3.82-4.97); Red Cell Distribution Width 13.8 % (11.5-14.5); White Blood Count 7.4 K/mcL (4.3-11.1)
[2020-04-07 06:28] LABS: BUN/Creatinine Ratio 22 (6-26); Blood Urea Nitrogen 17 mg/dL (8-23); Carbon Dioxide 31 mEq/L (23-29); Chloride 100 mEq/L (98-107); Glucose 196 mg/dL (70-105); Magnesium 1.5 mg/dL (1.6-2.6); Osmolality,Calculated 293 (280-300); Potassium 3.7 mEq/L (3.5-5.1); Sodium 138 mEq/L (136-145); eGFR For African Americans > 60 (> 60); eGFR For Non-African Americans > 60 (> 60)
[2020-04-07] MEDS: Aspirin 81 MG TAB.CHEW PO SCH (07:50)
[2020-04-07] MEDS: Valsartan 160 MG TABLET PO SCH (07:50)
[2020-04-07] MEDS: amLODIPine 5 MG TABLET PO SCH (07:51)
[2020-04-07] MEDS: Furosemide 40 MG/4 ML VIAL IVP SCH ×2 (07:51→20:14)
[2020-04-07] MEDS: atenoloL 50 MG TABLET PO SCH (07:51)
[2020-04-07] MEDS: cefTRIAXone 1,000 MG in Water for inj. (sterile) 10 ML IVP SCH (07:51)
[2020-04-07] MEDS: Insulin LISPRO 300 UNITS/3 ML VIAL SQ SCH ×4 (07:54→20:14)
[2020-04-07] MEDS: Insulin DETEMIR 100 UNIT/ML X5UNITS SQ SCH (07:54)
[2020-04-07 11:51] LABS: Adenovirus Not Detected (Not Detect); Bordetella Pertussis Not Detected (Not Detect); Chlamydophila pneumoniae Not Detected (Not Detect); Coronavirus 229E Not Detected (Not Detect); Coronavirus HKU1 Not Detected (Not Detect); Coronavirus NL63 Not Detected (Not Detect); Coronavirus OC43 Not Detected (Not Detect); Human Metapneumovirus Not Detected (Not Detect); Human Rhinovirus/Enterovirus Not Detected (Not Detect); Influenza A Subtype 2009 H1 Not Detected (Not Detect); Influenza B Not Detected (Not Detect); Mycoplasma pneumoniae Not Detected (Not Detect); Parainfluenza Virus 1 Not Detected (Not Detect); Parainfluenza Virus 2 Not Detected (Not Detect); Parainfluenza Virus 3 Not Detected (Not Detect); Parainfluenza Virus 4 Not Detected (Not Detect); Respiratory Syncytial Virus Not Detected (Not Detect); SARS-CoV-2 Not Detected (Not Detect)
[2020-04-07] MEDS ORDERED: *HR* Succinylcholine 200 MG/10 ML VIAL IVP ONE (20:52)
[2020-04-07] MEDS ORDERED: *HR* Propofol 200 MG/20 ML VIAL IVP ONE (20:52)
[2020-04-07] MEDS ORDERED: *HR* FentaNYL (PF) 100 MCG/2 ML VIAL ONE ×2 (20:52→21:30)
[2020-04-07] MEDS ORDERED: Lidocaine HCL 4 ML Topical Solution (Laryng-O-Jet Kit Sterile Pak) TP ONE (20:53)
[2020-04-07] MEDS ORDERED: Dexamethasone 4 MG/ML VIAL ONE (20:53)
[2020-04-07] MEDS ORDERED: Lidocaine -MPF 2% 2 ML VIAL ONE (20:53)
[2020-04-07] MEDS ORDERED: Ondansetron 4 MG/2 ML VIAL ONE (20:53)
[2020-04-07] MEDS ORDERED: Acetaminophen IV 1,000 MG/100 ML INFUS..BTL ONE (20:54)
[2020-04-07] MEDS ORDERED: Famotidine 20 MG/2 ML VIAL ONE (20:54)
[2020-04-07] MEDS ORDERED: Isovue-300 50ML VIAL ONE (20:58)
[2020-04-07] MEDS ORDERED: *HR* Dextrose 50 % in Water (Vial) 50 ML VIAL IVP PRN (22:53)
[2020-04-07] MEDS ORDERED: D5% in Water 1,000 ML IVC PRN (22:53)
[2020-04-07] MEDS ORDERED: Naloxone 0.4 MG/ML INJ IVP PRN (22:53)
[2020-04-07] MEDS ORDERED: Acetaminophen 325 MG TABLET PO PRN (22:53)
[2020-04-07] MEDS ORDERED: Dextrose Gel 15 GM/37.5 ML TUBE PO PRN ×2 (22:53)
[2020-04-07] MEDS ORDERED: ALPRAZolam 0.25 MG TABLET PO PRN (22:53)
[2020-04-07] MEDS ORDERED: *HR* Promethazine 25 MG/ML VIAL IVP PRN (22:53)
[2020-04-08 07:08] LABS: Hematocrit 34.9 % (35.3-44.9); Hemoglobin 10.9 g/dL (11.5-15.4); Mean Corpuscular HGB Conc 31.2 g/dL (31.6-35.5); Mean Corpuscular Hemoglobin 28.2 pg (28.0-33.3); Mean Corpuscular Volume 90.4 fL (83.0-100.0); Mean Platelet Volume 10.3 fL (9.4-12.4); Platelet Count 232 K/mcL (140-400); Red Blood Count 3.86 M/mcL (3.82-4.97); Red Cell Distribution Width 13.5 % (11.5-14.5); White Blood Count 8.7 K/mcL (4.3-11.1)
[2020-04-08 07:23] LABS: BUN/Creatinine Ratio 36 (6-26); Blood Urea Nitrogen 25 mg/dL (8-23); Calcium 9.3 mg/dL (8.6-10.3); Carbon Dioxide 27 mEq/L (23-29); Chloride 99 mEq/L (98-107); Glucose 194 mg/dL (70-105); Magnesium 1.9 mg/dL (1.6-2.6); Osmolality,Calculated 292 (280-300); Potassium 4.4 mEq/L (3.5-5.1); Sodium 136 mEq/L (136-145); eGFR For African Americans > 60 (> 60); eGFR For Non-African Americans > 60 (> 60)
[2020-04-08] MEDS: Furosemide 40 MG/4 ML VIAL IVP SCH ×2 (07:48→20:50)
[2020-04-08] MEDS: Aspirin 81 MG TAB.CHEW PO SCH (07:49)
[2020-04-08] MEDS: Valsartan 160 MG TABLET PO SCH (07:49)
[2020-04-08] MEDS: amLODIPine 5 MG TABLET PO SCH (07:49)
[2020-04-08] MEDS: atenoloL 50 MG TABLET PO SCH (07:49)
[2020-04-08] MEDS: Insulin LISPRO 300 UNITS/3 ML VIAL SQ SCH ×4 (07:53→20:50)
[2020-04-08] MEDS: Insulin DETEMIR 100 UNIT/ML X5UNITS SQ SCH (08:54)
[2020-04-08] MEDS ORDERED: cefTRIAXone 1,000 MG in Water for inj. (sterile) 10 ML IVP SCH (09:00)
[2020-04-08] MEDS: *HR* OxyCODONE/APAP 5/325 TABLET PO PRN (16:00)
[2020-04-09 06:46] LABS: Hematocrit 31.1 % (35.3-44.9); Hemoglobin 9.8 g/dL (11.5-15.4); Mean Corpuscular HGB Conc 31.5 g/dL (31.6-35.5); Mean Corpuscular Hemoglobin 28.4 pg (28.0-33.3); Mean Corpuscular Volume 90.1 fL (83.0-100.0); Mean Platelet Volume 10.5 fL (9.4-12.4); Platelet Count 199 K/mcL (140-400); Red Blood Count 3.45 M/mcL (3.82-4.97); Red Cell Distribution Width 13.8 % (11.5-14.5); White Blood Count 8.2 K/mcL (4.3-11.1)
[2020-04-09 07:02] LABS: Calcium 8.6 mg/dL (8.6-10.3); Magnesium 1.8 mg/dL (1.6-2.6); Potassium 3.8 mEq/L (3.5-5.1)
[2020-04-09] MEDS ORDERED: Ergocalciferol (VIT D2) 50,000 UNIT (1.25MG) CAP PO SCH ×2 (09:00)
[2020-04-09] MEDS: Valsartan 160 MG TABLET PO SCH (10:50)
[2020-04-09] MEDS: Furosemide 40 MG/4 ML VIAL IVP SCH (10:50)
[2020-04-09] MEDS: amLODIPine 5 MG TABLET PO SCH (11:00)
[2020-04-09] MEDS: Aspirin 81 MG TAB.CHEW PO SCH (11:00)
[2020-04-09] MEDS: atenoloL 50 MG TABLET PO SCH (11:00)
[2020-04-09] MEDS: 0.9 % Sodium Chloride 1,000 ML IVC SCH ×2 (11:01→22:50)
[2020-04-09] MEDS: Insulin LISPRO 300 UNITS/3 ML VIAL SQ SCH ×4 (11:01→22:51)
[2020-04-09] MEDS: Insulin DETEMIR 100 UNIT/ML X5UNITS SQ SCH ×2 (11:01→22:50)
[2020-04-09 14:02] LABS: Calcium 9.5 mg/dL (8.6-10.3); Potassium 3.6 mEq/L (3.5-5.1)
[2020-04-10] MEDS: *HR* OxyCODONE/APAP 5/325 TABLET PO PRN (00:02)
[2020-04-10 04:51] LABS: Hematocrit 30.9 % (35.3-44.9); Hemoglobin 9.7 g/dL (11.5-15.4); Mean Corpuscular HGB Conc 31.4 g/dL (31.6-35.5); Mean Corpuscular Volume 89.3 fL (83.0-100.0); Mean Platelet Volume 10.2 fL (9.4-12.4); Platelet Count 214 K/mcL (140-400); Red Blood Count 3.46 M/mcL (3.82-4.97); Red Cell Distribution Width 13.8 % (11.5-14.5); White Blood Count 8.1 K/mcL (4.3-11.1)
[2020-04-10 05:10] LABS: Calcium 8.7 mg/dL (8.6-10.3)
[2020-04-10] MEDS: 0.9 % Sodium Chloride 1,000 ML IVC SCH ×2 (07:28→08:50)
[2020-04-10] MEDS: atenoloL 50 MG TABLET PO SCH (08:47)
[2020-04-10] MEDS: Aspirin 81 MG TAB.CHEW PO SCH (08:48)
[2020-04-10] MEDS: Insulin DETEMIR 100 UNIT/ML X5UNITS SQ SCH (08:48)
[2020-04-10] MEDS: amLODIPine 5 MG TABLET PO SCH (08:48)
[2020-04-10] MEDS: Insulin LISPRO 300 UNITS/3 ML VIAL SQ SCH ×2 (08:48→14:35)
[2020-04-10 11:04] VITALS: BP 119/63
== END 2020-04-10 18:03 | DRG 952 ==
LOC: 3ANU 01:35 → EMEROOARM 01:35 → SUATTDRO 04:51 → 3ANU 05:32
PROVIDERS: ADMIT Student in an Organized Health Care Education/Training Program; ATTEND Student in an Organized Health Care Education/Training Program

== ENCOUNTER 2020-08-25 01:15 | Inpatient (IN) ==
[2020-08-25] MEDS ORDERED: Piperacillin/Tazobactam 3.375 GM in 0.9 % Sodium Chloride Mini Bag 100 ML IVPB ONE (02:13)
[2020-08-25] MEDS ORDERED: Vancomycin 2,000 MG/520 ML IV.SOLN IVPB ONE (02:13)
[2020-08-25 02:43] LABS: Basophils # 0.1 K/mcL (0.0-0.2); Basophils % 0.3 %; Hematocrit 32.4 % (35.3-44.9); Immature Granulocytes % 0.9 % (0-4); Lymphocytes # 0.7 K/mcL (0.6-4.6); Lymphocytes % 3.7 %; Mean Corpuscular HGB Conc 30.9 g/dL (31.6-35.5); Mean Corpuscular Volume 84.2 fL (83.0-100.0); Mean Platelet Volume 10.3 fL (9.4-12.4); Monocytes # 0.8 K/mcL (0.0-1.3); Neutrophils # 17.2 K/mcL (1.6-8.9); Platelet Count 199 K/mcL (140-400); Red Blood Count 3.85 M/mcL (3.82-4.97); Red Cell Distribution Width 17.7 % (11.5-14.5); Segmented Neutrophils % 91.1 %; White Blood Count 18.9 K/mcL (4.3-11.1)
[2020-08-25 03:02] LABS: BUN/Creatinine Ratio 23 (6-26); Blood Urea Nitrogen 20 mg/dL (8-23); Calcium 9.6 mg/dL (8.6-10.3); Carbon Dioxide 23 mEq/L (23-29); Chloride 99 mEq/L (98-107); Glucose 314 mg/dL (70-105); Osmolality,Calculated 293 (280-300); Potassium 3.7 mEq/L (3.5-5.1); Sodium 134 mEq/L (136-145); eGFR For African Americans > 60 (> 60); eGFR For Non-African Americans > 60 (> 60)
[2020-08-25 03:14] LABS: Troponin I 0.05 ng/mL (< 0.04)
[2020-08-25] MEDS ORDERED: Acetaminophen 325 MG TABLET PO ONE (03:58)
[2020-08-25] MEDS ORDERED: Acetaminophen 325 MG TABLET PO PRN (04:30)
[2020-08-25] MEDS ORDERED: Naloxone 0.4 MG/ML INJ IVP PRN (04:30)
[2020-08-25] MEDS ORDERED: Ondansetron 4 MG/2 ML VIAL IVP PRN (04:30)
[2020-08-25] MEDS ORDERED: ALPRAZolam 0.5 MG TABLET PO PRN (04:33)
[2020-08-25] MEDS ORDERED: Dextrose Gel 15 GM/37.5 ML TUBE PO PRN ×2 (04:46)
[2020-08-25] MEDS ORDERED: D5% in Water 1,000 ML IVC PRN (04:46)
[2020-08-25] MEDS ORDERED: Vancomycin 1,750 MG in 0.9 % Sodium Chloride 250 ML IVPB SCH (05:00)
[2020-08-25] MEDS ORDERED: *HR* Heparin 5,000 UNIT/ML VIAL SQ SCH (06:00)
[2020-08-25] MEDS ORDERED: Insulin LISPRO 300 UNITS/3 ML VIAL SUBQ SCH ×3 (07:30→21:00)
[2020-08-25] MEDS ORDERED: amLODIPine 5 MG TABLET PO SCH (09:00)
[2020-08-25] MEDS ORDERED: Furosemide 40 MG/4 ML VIAL IVP SCH (09:00)
[2020-08-25] MEDS ORDERED: atenoloL 50 MG TABLET PO SCH (09:00)
[2020-08-25] MEDS ORDERED: Valsartan 160 MG TABLET PO SCH (09:00)
[2020-08-25] MEDS: Piperacillin/Tazobactam 3.375 GM in 0.9 % Sodium Chloride Mini Bag 100 ML IVPB SCH ×2 (09:09→17:38)
[2020-08-25] MEDS: Furosemide 40 MG/4 ML VIAL IVP SCH ×2 (09:09→20:40)
[2020-08-25] MEDS: Insulin DETEMIR 100 UNIT/ML X5UNITS SUBQ SCH (09:20)
[2020-08-25] MEDS: Insulin LISPRO 300 UNITS/3 ML VIAL SUBQ SCH ×3 (09:20→17:11)
[2020-08-25] MEDS ORDERED: Aspirin 325 MG TABLET PO ONE (09:57)
[2020-08-25 10:06] LABS: Adenovirus Not Detected (Not Detect); Coronavirus 229E Not Detected (Not Detect); Coronavirus HKU1 Not Detected (Not Detect); Coronavirus NL63 Not Detected (Not Detect); Coronavirus OC43 Not Detected (Not Detect); SARS-CoV-2 Not Detected (Not Detect)
[2020-08-25 10:07] LABS: Bordetella Pertussis Not Detected (Not Detect); Chlamydophila pneumoniae Not Detected (Not Detect); Human Metapneumovirus Not Detected (Not Detect); Human Rhinovirus/Enterovirus Not Detected (Not Detect); Influenza A Subtype 2009 H1 Not Detected (Not Detect); Influenza B Not Detected (Not Detect); Mycoplasma pneumoniae Not Detected (Not Detect); Parainfluenza Virus 1 Not Detected (Not Detect); Parainfluenza Virus 2 Not Detected (Not Detect); Parainfluenza Virus 3 Not Detected (Not Detect); Parainfluenza Virus 4 Not Detected (Not Detect); Respiratory Syncytial Virus Not Detected (Not Detect)
[2020-08-25 13:12] LABS: Bilirubin,Urine Negative (Negative); Blood,Urine Large (Negative); Clarity,Urine Cloudy (Clear); Color,Urine Red (Yellow); Glucose,Urine (UA) 500 mg/dL (Normal); Ketones,Urine Negative (Negative); Leukocyte Esterase,Urine Trace (Negative); Nitrite,Urine Negative (Negative); PH,Urine 6.5 pH Units (5.0-8.0); Protein,Urine 100 mg/dL (Neg-Trace); Urobilinogen,Urine Normal (Normal)
[2020-08-25] MEDS: Vancomycin 1,250 MG/262.5 ML IV.SOLN IVPB SCH (13:40)
[2020-08-25 22:31] LABS: Basophils # 0.1 K/mcL (0.0-0.2); Basophils % 0.4 %; Eosinophils % 0.1 %; Hematocrit 34.8 % (35.3-44.9); Hemoglobin 10.6 g/dL (11.5-15.4); Immature Granulocytes % 0.6 % (0-4); Lymphocytes # 1.2 K/mcL (0.6-4.6); Mean Corpuscular HGB Conc 30.5 g/dL (31.6-35.5); Mean Corpuscular Volume 85.3 fL (83.0-100.0); Mean Platelet Volume 9.7 fL (9.4-12.4); Monocytes # 1.2 K/mcL (0.0-1.3); Monocytes % 8.6 %; Platelet Count 191 K/mcL (140-400); Red Blood Count 4.08 M/mcL (3.82-4.97); Red Cell Distribution Width 17.8 % (11.5-14.5); Segmented Neutrophils % 81.3 %; White Blood Count 13.5 K/mcL (4.3-11.1)
[2020-08-26] MEDS: Piperacillin/Tazobactam 3.375 GM in 0.9 % Sodium Chloride Mini Bag 100 ML IVPB SCH ×3 (03:02→23:05)
[2020-08-26] MEDS: Vancomycin 1,250 MG/262.5 ML IV.SOLN IVPB SCH ×2 (03:02→14:00)
[2020-08-26 05:17] LABS: Basophils % 0.4 %; Eosinophils # 0.1 K/mcL (0.0-0.6); Eosinophils % 0.6 %; Hematocrit 31.7 % (35.3-44.9); Hemoglobin 9.8 g/dL (11.5-15.4); Immature Granulocytes % 0.4 % (0-4); Lymphocytes # 0.9 K/mcL (0.6-4.6); Lymphocytes % 9.7 %; Mean Corpuscular HGB Conc 30.9 g/dL (31.6-35.5); Mean Corpuscular Hemoglobin 25.9 pg (28.0-33.3); Mean Corpuscular Volume 83.6 fL (83.0-100.0); Mean Platelet Volume 10.2 fL (9.4-12.4); Monocytes % 9.9 %; Neutrophils # 7.7 K/mcL (1.6-8.9); Platelet Count 177 K/mcL (140-400); Red Blood Count 3.79 M/mcL (3.82-4.97); Red Cell Distribution Width 17.5 % (11.5-14.5); White Blood Count 9.7 K/mcL (4.3-11.1)
[2020-08-26 05:25] LABS: INR 1.2; Prothrombin Time 14.1 Seconds (9.4-12.1)
[2020-08-26 05:30] LABS: BUN/Creatinine Ratio 18 (6-26); Blood Urea Nitrogen 15 mg/dL (8-23); Carbon Dioxide 30 mEq/L (23-29); Chloride 98 mEq/L (98-107); Glucose 175 mg/dL (70-105); Magnesium 1.3 mg/dL (1.6-2.6); Osmolality,Calculated 287 (280-300); Potassium 3.3 mEq/L (3.5-5.1); Sodium 136 mEq/L (136-145); eGFR For African Americans > 60 (> 60); eGFR For Non-African Americans > 60 (> 60)
[2020-08-26 05:53] LABS: Estimated Average Glucose 252 mg/dl; Hemoglobin A1C 10.4 %
[2020-08-26] MEDS ORDERED: Aspirin 81 MG TAB.CHEW PO SCH (09:00)
[2020-08-26] MEDS ORDERED: atenoloL 50 MG TABLET PO SCH (09:00)
[2020-08-26] MEDS: Insulin LISPRO 300 UNITS/3 ML VIAL SUBQ SCH ×3 (09:07→16:02)
[2020-08-26] MEDS: Furosemide 40 MG/4 ML VIAL IVP SCH (09:07)
[2020-08-26] MEDS: Insulin DETEMIR 100 UNIT/ML X5UNITS SUBQ SCH (09:08)
[2020-08-26] MEDS ORDERED: *HR* Propofol 200 MG/20 ML VIAL IVP ONE (15:30)
[2020-08-26] MEDS ORDERED: *HR* FentaNYL (PF) 100 MCG/2 ML VIAL ONE ×2 (15:30→19:13)
[2020-08-26] MEDS ORDERED: *HR* Midazolam HCl 2 MG/2 ML VIAL ONE (15:30)
[2020-08-26] MEDS: *HR* Dextrose 50 % in Water (Vial) 50 ML VIAL IVP PRN ×2 (16:17→20:09)
[2020-08-26] MEDS ORDERED: Lidocaine 1% 20 ML MDV ONE (16:23)
[2020-08-26] MEDS ORDERED: Vancomycin 1,000 MG VIAL ONE (17:15)
[2020-08-26] MEDS ORDERED: *HR* Succinylcholine 200 MG/10 ML VIAL IVP ONE (17:19)
[2020-08-26] MEDS ORDERED: Acetaminophen IV 1,000 MG/100 ML BAG IVPB ONE (17:21)
[2020-08-26] MEDS ORDERED: Promethazine 6.25 MG in Water for inj. (sterile) 20 ML IVPB PRN ×2 (18:58→21:08)
[2020-08-26] MEDS ORDERED: *HR* Labetalol 20 MG/4 ML SYRINGE IVP PRN (18:58)
[2020-08-26] MEDS ORDERED: *HR* HYDROcodone/Acet 7.5/325 mg TABLET PO PRN (18:58)
[2020-08-26] MEDS ORDERED: Ondansetron 4 MG/2 ML VIAL IVP PRN ×2 (18:58→21:08)
[2020-08-26] MEDS ORDERED: *HR* HYDROmorphone PF 0.5 MG/0.5 ML SYRINGE IVP PRN (18:58)
[2020-08-26] MEDS ORDERED: Ketorolac 30 MG/ML VIAL ONE (19:05)
[2020-08-26] MEDS ORDERED: ALPRAZolam 0.5 MG TABLET PO PRN (21:08)
[2020-08-26] MEDS ORDERED: D5% in Water 1,000 ML IVC PRN (21:08)
[2020-08-26] MEDS ORDERED: Naloxone 0.4 MG/ML INJ IVP PRN (21:08)
[2020-08-26] MEDS ORDERED: *HR* Dextrose 50 % in Water (Vial) 50 ML VIAL IVP PRN (21:08)
[2020-08-26] MEDS ORDERED: Dextrose Gel 15 GM/37.5 ML TUBE PO PRN ×2 (21:08)
[2020-08-27] MEDS: Vancomycin 1,250 MG/262.5 ML IV.SOLN IVPB SCH ×2 (01:17→13:26)
[2020-08-27 01:27] LABS: Basophils % 0.2 %; Hematocrit 31.8 % (35.3-44.9); Hemoglobin 9.8 g/dL (11.5-15.4); Immature Granulocytes % 0.5 % (0-4); Lymphocytes # 0.7 K/mcL (0.6-4.6); Lymphocytes % 7.3 %; Mean Corpuscular HGB Conc 30.8 g/dL (31.6-35.5); Mean Corpuscular Hemoglobin 25.9 pg (28.0-33.3); Mean Corpuscular Volume 83.9 fL (83.0-100.0); Mean Platelet Volume 10.6 fL (9.4-12.4); Monocytes # 0.3 K/mcL (0.0-1.3); Neutrophils # 8.5 K/mcL (1.6-8.9); Platelet Count 188 K/mcL (140-400); Red Blood Count 3.79 M/mcL (3.82-4.97); Red Cell Distribution Width 17.2 % (11.5-14.5); White Blood Count 9.5 K/mcL (4.3-11.1)
[2020-08-27 01:49] LABS: BUN/Creatinine Ratio 20 (6-26); Blood Urea Nitrogen 18 mg/dL (8-23); Calcium 8.6 mg/dL (8.6-10.3); Carbon Dioxide 27 mEq/L (23-29); Chloride 101 mEq/L (98-107); Glucose 95 mg/dL (70-105); Osmolality,Calculated 288 (280-300); Sodium 138 mEq/L (136-145); eGFR For African Americans > 60 (> 60); eGFR For Non-African Americans > 60 (> 60)
[2020-08-27] MEDS: Insulin LISPRO 300 UNITS/3 ML VIAL SUBQ SCH ×4 (07:52→21:21)
[2020-08-27] MEDS: Piperacillin/Tazobactam 3.375 GM in 0.9 % Sodium Chloride Mini Bag 100 ML IVPB SCH ×2 (07:59→15:22)
[2020-08-27] MEDS: atenoloL 50 MG TABLET PO SCH (08:00)
[2020-08-27] MEDS: Aspirin 81 MG TAB.CHEW PO SCH (08:00)
[2020-08-27] MEDS: Furosemide 40 MG/4 ML VIAL IVP SCH ×2 (08:01→21:30)
[2020-08-27] MEDS: Insulin DETEMIR 100 UNIT/ML X5UNITS SUBQ SCH (08:04)
[2020-08-27] MEDS ORDERED: Cholecalciferol (D-3) 1,000 UNIT (25MCG) TABLET PO SCH ×2 (09:00)
[2020-08-27] MEDS: Cholecalciferol (D-3) 1,000 UNIT (25MCG) TABLET PO SCH (11:19)
[2020-08-27] MEDS: Acetaminophen 325 MG TABLET PO PRN (23:16)
[2020-08-28] MEDS: Piperacillin/Tazobactam 3.375 GM in 0.9 % Sodium Chloride Mini Bag 100 ML IVPB SCH ×3 (00:21→16:46)
[2020-08-28 02:14] LABS: Hematocrit 31.9 % (35.3-44.9); Hemoglobin 9.6 g/dL (11.5-15.4); Mean Corpuscular HGB Conc 30.1 g/dL (31.6-35.5); Mean Corpuscular Hemoglobin 25.6 pg (28.0-33.3); Mean Corpuscular Volume 85.1 fL (83.0-100.0); Mean Platelet Volume 9.9 fL (9.4-12.4); Platelet Count 212 K/mcL (140-400); Red Blood Count 3.75 M/mcL (3.82-4.97); White Blood Count 9.2 K/mcL (4.3-11.1)
[2020-08-28] MEDS: Vancomycin 1,250 MG/262.5 ML IV.SOLN IVPB SCH ×2 (02:14→13:41)
[2020-08-28 02:40] LABS: BUN/Creatinine Ratio 21 (6-26); Blood Urea Nitrogen 20 mg/dL (8-23); Calcium 8.9 mg/dL (8.6-10.3); Carbon Dioxide 28 mEq/L (23-29); Chloride 100 mEq/L (98-107); Glucose 92 mg/dL (70-105); Osmolality,Calculated 286 (280-300); Potassium 3.5 mEq/L (3.5-5.1); Sodium 137 mEq/L (136-145); eGFR For African Americans > 60 (> 60); eGFR For Non-African Americans 58 (> 60)
[2020-08-28] MEDS: Insulin LISPRO 300 UNITS/3 ML VIAL SUBQ SCH ×4 (09:15→21:59)
[2020-08-28] MEDS: atenoloL 50 MG TABLET PO SCH (09:49)
[2020-08-28] MEDS: Furosemide 40 MG/4 ML VIAL IVP SCH ×2 (09:50→22:05)
[2020-08-28] MEDS: Aspirin 81 MG TAB.CHEW PO SCH (09:50)
[2020-08-28] MEDS: Cholecalciferol (D-3) 1,000 UNIT (25MCG) TABLET PO SCH (09:52)
[2020-08-28] MEDS: Insulin DETEMIR 100 UNIT/ML X5UNITS SUBQ SCH (10:05)
[2020-08-28] MEDS: Acetaminophen 325 MG TABLET PO PRN ×2 (13:44→19:05)
[2020-08-29] MEDS: Piperacillin/Tazobactam 3.375 GM in 0.9 % Sodium Chloride Mini Bag 100 ML IVPB SCH ×3 (01:49→16:12)
[2020-08-29 02:08] LABS: Basophils # 0.1 K/mcL (0.0-0.2); Basophils % 0.6 %; Eosinophils # 0.2 K/mcL (0.0-0.6); Hemoglobin 9.8 g/dL (11.5-15.4); Immature Granulocytes % 0.8 % (0-4); Lymphocytes # 1.5 K/mcL (0.6-4.6); Mean Corpuscular HGB Conc 31.6 g/dL (31.6-35.5); Mean Corpuscular Hemoglobin 26.3 pg (28.0-33.3); Mean Corpuscular Volume 83.3 fL (83.0-100.0); Mean Platelet Volume 9.8 fL (9.4-12.4); Monocytes # 0.9 K/mcL (0.0-1.3); Monocytes % 10.1 %; Neutrophils # 6.2 K/mcL (1.6-8.9); Platelet Count 244 K/mcL (140-400); Red Blood Count 3.72 M/mcL (3.82-4.97); Red Cell Distribution Width 16.7 % (11.5-14.5); Segmented Neutrophils % 69.5 %; White Blood Count 8.9 K/mcL (4.3-11.1)
[2020-08-29] MEDS: Vancomycin 1,250 MG/262.5 ML IV.SOLN IVPB SCH (02:36)
[2020-08-29] MEDS: Insulin LISPRO 300 UNITS/3 ML VIAL SUBQ SCH ×4 (07:45→20:27)
[2020-08-29] MEDS: Cholecalciferol (D-3) 1,000 UNIT (25MCG) TABLET PO SCH (07:59)
[2020-08-29] MEDS: atenoloL 50 MG TABLET PO SCH (08:00)
[2020-08-29] MEDS: Furosemide 40 MG/4 ML VIAL IVP SCH ×2 (08:00→20:12)
[2020-08-29] MEDS: Aspirin 81 MG TAB.CHEW PO SCH (08:00)
[2020-08-29] MEDS: Insulin DETEMIR 100 UNIT/ML X5UNITS SUBQ SCH (08:02)
[2020-08-29] MEDS ORDERED: Vancomycin 750 MG VIAL ONE (20:03)
[2020-08-30] MEDS: Piperacillin/Tazobactam 3.375 GM in 0.9 % Sodium Chloride Mini Bag 100 ML IVPB SCH ×3 (01:12→16:15)
[2020-08-30] MEDS: Acetaminophen 325 MG TABLET PO PRN ×2 (01:57→20:55)
[2020-08-30] MEDS: Aspirin 81 MG TAB.CHEW PO SCH (08:05)
[2020-08-30] MEDS: Insulin DETEMIR 100 UNIT/ML X5UNITS SUBQ SCH (08:05)
[2020-08-30] MEDS: atenoloL 50 MG TABLET PO SCH (08:05)
[2020-08-30] MEDS: Cholecalciferol (D-3) 1,000 UNIT (25MCG) TABLET PO SCH (08:05)
[2020-08-30] MEDS: Insulin LISPRO 300 UNITS/3 ML VIAL SUBQ SCH ×4 (08:08→21:05)
[2020-08-30] MEDS: Furosemide 40 MG/4 ML VIAL IVP SCH ×2 (08:08→20:56)
[2020-08-31] MEDS: Piperacillin/Tazobactam 3.375 GM in 0.9 % Sodium Chloride Mini Bag 100 ML IVPB SCH ×2 (00:59→08:12)
[2020-08-31 03:29] LABS: Basophils # 0.1 K/mcL (0.0-0.2); Basophils % 0.8 %; Eosinophils # 0.4 K/mcL (0.0-0.6); Eosinophils % 3.6 %; Hematocrit 29.6 % (35.3-44.9); Immature Granulocytes % 1.9 % (0-4); Lymphocytes # 2.6 K/mcL (0.6-4.6); Mean Corpuscular HGB Conc 30.4 g/dL (31.6-35.5); Mean Corpuscular Hemoglobin 25.5 pg (28.0-33.3); Mean Corpuscular Volume 83.9 fL (83.0-100.0); Monocytes # 0.9 K/mcL (0.0-1.3); Monocytes % 9.2 %; Neutrophils # 5.8 K/mcL (1.6-8.9); Platelet Count 270 K/mcL (140-400); Red Blood Count 3.53 M/mcL (3.82-4.97); Red Cell Distribution Width 16.4 % (11.5-14.5); Segmented Neutrophils % 58.5 %
[2020-08-31 03:51] LABS: BUN/Creatinine Ratio 28 (6-26); Blood Urea Nitrogen 28 mg/dL (8-23); Calcium 9.1 mg/dL (8.6-10.3); Carbon Dioxide 33 mEq/L (23-29); Chloride 96 mEq/L (98-107); Glucose 194 mg/dL (70-105); Osmolality,Calculated 297 (280-300); Potassium 3.1 mEq/L (3.5-5.1); Sodium 138 mEq/L (136-145); eGFR For African Americans > 60 (> 60); eGFR For Non-African Americans 56 (> 60)
[2020-08-31 07:24] LABS: Vancomycin,Trough 16 mcg/mL (5-10)
[2020-08-31] MEDS: atenoloL 50 MG TABLET PO SCH (08:11)
[2020-08-31] MEDS: Insulin DETEMIR 100 UNIT/ML X5UNITS SUBQ SCH (08:11)
[2020-08-31] MEDS: Furosemide 40 MG/4 ML VIAL IVP SCH ×2 (08:11→20:12)
[2020-08-31] MEDS: Cholecalciferol (D-3) 1,000 UNIT (25MCG) TABLET PO SCH (08:12)
[2020-08-31] MEDS: Aspirin 81 MG TAB.CHEW PO SCH (08:12)
[2020-08-31] MEDS: Insulin LISPRO 300 UNITS/3 ML VIAL SUBQ SCH ×4 (08:13→20:12)
[2020-08-31 15:51] LABS: C-Reactive Protein 12 mg/L (Less than 10)
[2020-08-31] MEDS: ceFAZolin 2,000 MG in 0.9 % Sodium Chloride 100 ML IVPB SCH ×2 (16:53→23:07)
[2020-08-31] MEDS: Acetaminophen 325 MG TABLET PO PRN (17:33)
[2020-09-01 02:27] LABS: Basophils # 0.1 K/mcL (0.0-0.2); Basophils % 0.8 %; Eosinophils # 0.3 K/mcL (0.0-0.6); Eosinophils % 3.1 %; Hematocrit 27.3 % (35.3-44.9); Hemoglobin 8.3 g/dL (11.5-15.4); Immature Granulocytes % 2.3 % (0-4); Lymphocytes # 2.7 K/mcL (0.6-4.6); Lymphocytes % 24.3 %; Mean Corpuscular HGB Conc 30.4 g/dL (31.6-35.5); Mean Corpuscular Hemoglobin 25.5 pg (28.0-33.3); Mean Corpuscular Volume 83.7 fL (83.0-100.0); Mean Platelet Volume 10.3 fL (9.4-12.4); Monocytes # 1.1 K/mcL (0.0-1.3); Monocytes % 10.3 %; Neutrophils # 6.6 K/mcL (1.6-8.9); Platelet Count 269 K/mcL (140-400); Red Blood Count 3.26 M/mcL (3.82-4.97); Red Cell Distribution Width 16.6 % (11.5-14.5); Segmented Neutrophils % 59.2 %; White Blood Count 11.1 K/mcL (4.3-11.1)
[2020-09-01 02:43] LABS: BUN/Creatinine Ratio 34 (6-26); Blood Urea Nitrogen 35 mg/dL (8-23); Calcium 8.9 mg/dL (8.6-10.3); Carbon Dioxide 33 mEq/L (23-29); Chloride 98 mEq/L (98-107); Glucose 130 mg/dL (70-105); Osmolality,Calculated 298 (280-300); Potassium 3.2 mEq/L (3.5-5.1); Sodium 139 mEq/L (136-145); eGFR For African Americans > 60 (> 60); eGFR For Non-African Americans 54 (> 60)
[2020-09-01] MEDS: Furosemide 40 MG/4 ML VIAL IVP SCH ×2 (10:29→21:17)
[2020-09-01] MEDS: ceFAZolin 2,000 MG in 0.9 % Sodium Chloride 100 ML IVPB SCH ×3 (10:30→23:53)
[2020-09-01] MEDS: Aspirin 81 MG TAB.CHEW PO SCH (10:31)
[2020-09-01] MEDS: Cholecalciferol (D-3) 1,000 UNIT (25MCG) TABLET PO SCH (10:31)
[2020-09-01] MEDS: Insulin DETEMIR 100 UNIT/ML X5UNITS SUBQ SCH (10:31)
[2020-09-01] MEDS: atenoloL 50 MG TABLET PO SCH (10:31)
[2020-09-01] MEDS: metroNIDAZOLE 500 MG TABLET PO SCH ×3 (10:31→21:17)
[2020-09-01] MEDS: Insulin LISPRO 300 UNITS/3 ML VIAL SUBQ SCH ×4 (10:32→20:48)
[2020-09-01] MEDS: Acetaminophen 325 MG TABLET PO PRN ×2 (10:53→23:57)
[2020-09-02 02:35] LABS: Basophils # 0.1 K/mcL (0.0-0.2); Basophils % 0.6 %; Eosinophils # 0.2 K/mcL (0.0-0.6); Eosinophils % 2.4 %; Hematocrit 27.1 % (35.3-44.9); Hemoglobin 8.4 g/dL (11.5-15.4); Immature Granulocytes % 2.2 % (0-4); Lymphocytes # 2.2 K/mcL (0.6-4.6); Lymphocytes % 22.8 %; Mean Corpuscular Hemoglobin 25.8 pg (28.0-33.3); Mean Corpuscular Volume 83.1 fL (83.0-100.0); Mean Platelet Volume 10.1 fL (9.4-12.4); Monocytes # 1.2 K/mcL (0.0-1.3); Neutrophils # 5.8 K/mcL (1.6-8.9); Platelet Count 292 K/mcL (140-400); Red Blood Count 3.26 M/mcL (3.82-4.97); Red Cell Distribution Width 16.6 % (11.5-14.5); White Blood Count 9.7 K/mcL (4.3-11.1)
[2020-09-02 02:54] LABS: BUN/Creatinine Ratio 43 (6-26); Blood Urea Nitrogen 42 mg/dL (8-23); Calcium 9.1 mg/dL (8.6-10.3); Carbon Dioxide 35 mEq/L (23-29); Chloride 96 mEq/L (98-107); Glucose 191 mg/dL (70-105); Osmolality,Calculated 298 (280-300); Potassium 3.2 mEq/L (3.5-5.1); Sodium 136 mEq/L (136-145); eGFR For African Americans > 60 (> 60); eGFR For Non-African Americans 58 (> 60)
[2020-09-02] MEDS: Aspirin 81 MG TAB.CHEW PO SCH (08:23)
[2020-09-02] MEDS: metroNIDAZOLE 500 MG TABLET PO SCH (08:23)
[2020-09-02] MEDS: atenoloL 50 MG TABLET PO SCH (08:23)
[2020-09-02] MEDS: Cholecalciferol (D-3) 1,000 UNIT (25MCG) TABLET PO SCH (08:23)
[2020-09-02] MEDS: Furosemide 40 MG/4 ML VIAL IVP SCH (08:24)
[2020-09-02] MEDS: Insulin LISPRO 300 UNITS/3 ML VIAL SUBQ SCH ×3 (08:28→16:40)
[2020-09-02] MEDS: Insulin DETEMIR 100 UNIT/ML X5UNITS SUBQ SCH (08:45)
[2020-09-02] MEDS: ceFAZolin 2,000 MG in 0.9 % Sodium Chloride 100 ML IVPB SCH ×2 (08:45→16:38)
[2020-09-02] MEDS: Acetaminophen 325 MG TABLET PO PRN (10:08)
[2020-09-02 11:28] VITALS: BP 130/69
[2020-09-02] MEDS ORDERED: MOM Conc 10 ML UD.LIQ PO SCH (12:30)
[2020-09-02 17:29] LABS: Influenza A PCR Negative (Negative); Influenza B PCR Negative (Negative); Resp. Syncytial Virus PCR Negative (Negative)
[2020-09-02 17:39] LABS: SARS-CoV-2 by PCR (In House) Negative (Negative)
== END 2020-09-02 19:22 | DRG 710 ==
LOC: 2NNU 01:15 → EMEROOARM 01:15 → 2NNU 06:02 → 3NENU 20:28
PROVIDERS: ADMIT Student in an Organized Health Care Education/Training Program; ATTEND Student in an Organized Health Care Education/Training Program

== ENCOUNTER 2020-10-13 10:07 | Inpatient (IN) ==
[2020-10-13 10:41] LABS: Basophils # 0.1 K/mcL (0.0-0.2); Basophils % 0.6 %; Eosinophils # 0.1 K/mcL (0.0-0.6); Eosinophils % 0.9 %; Hematocrit 31.7 % (35.3-44.9); Hemoglobin 9.5 g/dL (11.5-15.4); Immature Granulocytes % 0.3 % (0-4); Lymphocytes # 1.2 K/mcL (0.6-4.6); Lymphocytes % 15.4 %; Mean Corpuscular Hemoglobin 24.1 pg (28.0-33.3); Mean Corpuscular Volume 80.5 fL (83.0-100.0); Monocytes # 0.7 K/mcL (0.0-1.3); Monocytes % 8.3 %; Neutrophils # 5.9 K/mcL (1.6-8.9); Platelet Count 235 K/mcL (140-400); Red Blood Count 3.94 M/mcL (3.82-4.97); Red Cell Distribution Width 14.6 % (11.5-14.5); Segmented Neutrophils % 74.5 %; White Blood Count 7.9 K/mcL (4.3-11.1)
[2020-10-13 11:00] LABS: BUN/Creatinine Ratio 39 (6-26); Blood Urea Nitrogen 32 mg/dL (8-23); Calcium 9.7 mg/dL (8.6-10.3); Carbon Dioxide 34 mEq/L (23-29); Chloride 99 mEq/L (98-107); Glucose 124 mg/dL (70-105); Osmolality,Calculated 298 (280-300); Potassium 3.7 mEq/L (3.5-5.1); Sodium 140 mEq/L (136-145); eGFR For African Americans > 60 (> 60); eGFR For Non-African Americans > 60 (> 60)
[2020-10-13] MEDS ORDERED: *HR* OxyCODONE/APAP 10/325 TABLET PO PRN (16:07)
[2020-10-13] MEDS ORDERED: D5% in Water 1,000 ML IVC PRN (16:08)
[2020-10-13] MEDS ORDERED: Dextrose Gel 15 GM/37.5 ML TUBE PO PRN ×2 (16:08)
[2020-10-13] MEDS ORDERED: *HR* Dextrose 50 % in Water (Vial) 50 ML VIAL IVP PRN (16:08)
[2020-10-13] MEDS ORDERED: NON-FORMULARY MEDICATION 1 EACH EACH (Cefazolin [Ancef Premix 2 Gm/100 Ml] 2 GM/100 ML Bag IVPB SCH (16:15)
[2020-10-13] MEDS ORDERED: Ondansetron 4 MG/2 ML VIAL IVP PRN (16:25)
[2020-10-13] MEDS ORDERED: Naloxone 0.4 MG/ML INJ IVP PRN (16:25)
[2020-10-13] MEDS ORDERED: *HR* HYDROcodone/Acet 5/325 mg TABLET PO PRN (16:25)
[2020-10-13] MEDS ORDERED: Melatonin 3 MG TABLET PO PRN (16:25)
[2020-10-13 16:52] LABS: % Iron Saturation 3 % (15-50); Iron 14 mcg/dL (50-170); Transferrin 297 mg/dL (203-362)
[2020-10-13 17:10] LABS: Ferritin 10 ng/mL (10-120)
[2020-10-13] MEDS: *HR* Heparin 5,000 UNIT/ML VIAL SQ SCH (17:20)
[2020-10-13] MEDS: Insulin LISPRO 300 UNITS/3 ML VIAL SUBQ SCH (17:21)
[2020-10-13] MEDS: ceFAZolin 2,000 MG in 0.9 % Sodium Chloride 100 ML IVPB SCH ×2 (17:21→23:39)
[2020-10-13] MEDS: Insulin DETEMIR 100 UNIT/ML X5UNITS SUBQ SCH (20:13)
[2020-10-14 03:45] LABS: Hematocrit 29.3 % (35.3-44.9); Hemoglobin 8.7 g/dL (11.5-15.4); Mean Corpuscular HGB Conc 29.7 g/dL (31.6-35.5); Mean Corpuscular Hemoglobin 24.4 pg (28.0-33.3); Mean Corpuscular Volume 82.3 fL (83.0-100.0); Mean Platelet Volume 11.2 fL (9.4-12.4); Platelet Count 238 K/mcL (140-400); Red Blood Count 3.56 M/mcL (3.82-4.97); Red Cell Distribution Width 14.6 % (11.5-14.5); White Blood Count 7.2 K/mcL (4.3-11.1)
[2020-10-14 04:04] LABS: BUN/Creatinine Ratio 36 (6-26); Blood Urea Nitrogen 28 mg/dL (8-23); Calcium 9.3 mg/dL (8.6-10.3); Carbon Dioxide 31 mEq/L (23-29); Chloride 101 mEq/L (98-107); Glucose 125 mg/dL (70-105); Magnesium 1.7 mg/dL (1.6-2.6); Osmolality,Calculated 295 (280-300); Potassium 3.5 mEq/L (3.5-5.1); Sodium 139 mEq/L (136-145); eGFR For African Americans > 60 (> 60); eGFR For Non-African Americans > 60 (> 60)
[2020-10-14] MEDS: *HR* Heparin 5,000 UNIT/ML VIAL SQ SCH ×2 (05:31→17:25)
[2020-10-14] MEDS: atenoloL 50 MG TABLET PO SCH (08:29)
[2020-10-14] MEDS: Aspirin 81 MG TAB.CHEW PO SCH (08:30)
[2020-10-14] MEDS: Furosemide 40 MG TABLET PO SCH (08:30)
[2020-10-14] MEDS: Insulin LISPRO 300 UNITS/3 ML VIAL SUBQ SCH ×3 (08:32→17:26)
[2020-10-14] MEDS: Acetaminophen 325 MG TABLET PO PRN (08:34)
[2020-10-14] MEDS: ceFAZolin 2,000 MG in 0.9 % Sodium Chloride 100 ML IVPB SCH ×3 (08:45→23:37)
[2020-10-14] MEDS: Insulin DETEMIR 100 UNIT/ML X5UNITS SUBQ SCH (22:06)
[2020-10-14] MEDS ORDERED: Simethicone 80 MG TAB.CHEW PO PRN (22:12)
[2020-10-15 03:56] LABS: Basophils % 0.6 %; Eosinophils # 0.1 K/mcL (0.0-0.6); Eosinophils % 1.5 %; Hematocrit 28.7 % (35.3-44.9); Hemoglobin 8.9 g/dL (11.5-15.4); Immature Granulocytes % 0.3 % (0-4); Lymphocytes # 1.5 K/mcL (0.6-4.6); Lymphocytes % 22.9 %; Mean Corpuscular Hemoglobin 24.7 pg (28.0-33.3); Mean Corpuscular Volume 79.5 fL (83.0-100.0); Monocytes # 0.8 K/mcL (0.0-1.3); Monocytes % 11.4 %; Neutrophils # 4.2 K/mcL (1.6-8.9); Platelet Count 227 K/mcL (140-400); Red Blood Count 3.61 M/mcL (3.82-4.97); Red Cell Distribution Width 14.2 % (11.5-14.5); Segmented Neutrophils % 63.3 %; White Blood Count 6.6 K/mcL (4.3-11.1)
[2020-10-15 04:15] LABS: BUN/Creatinine Ratio 27 (6-26); Blood Urea Nitrogen 20 mg/dL (8-23); Calcium 9.3 mg/dL (8.6-10.3); Carbon Dioxide 32 mEq/L (23-29); Chloride 102 mEq/L (98-107); Glucose 106 mg/dL (70-105); Magnesium 1.7 mg/dL (1.6-2.6); Osmolality,Calculated 291 (280-300); Phosphorous 2.6 mg/dL (2.7-4.5); Potassium 3.6 mEq/L (3.5-5.1); Sodium 139 mEq/L (136-145); eGFR For African Americans > 60 (> 60); eGFR For Non-African Americans > 60 (> 60)
[2020-10-15] MEDS: *HR* Heparin 5,000 UNIT/ML VIAL SQ SCH ×2 (06:22→17:26)
[2020-10-15] MEDS: Insulin LISPRO 300 UNITS/3 ML VIAL SUBQ SCH ×3 (07:27→17:26)
[2020-10-15] MEDS: atenoloL 50 MG TABLET PO SCH (08:07)
[2020-10-15] MEDS: Aspirin 81 MG TAB.CHEW PO SCH (08:07)
[2020-10-15] MEDS: Furosemide 40 MG TABLET PO SCH (08:07)
[2020-10-15] MEDS: ceFAZolin 2,000 MG in 0.9 % Sodium Chloride 100 ML IVPB SCH ×3 (08:07→23:50)
[2020-10-15] MEDS: Insulin DETEMIR 100 UNIT/ML X5UNITS SUBQ SCH (20:26)
[2020-10-16] MEDS: *HR* Heparin 5,000 UNIT/ML VIAL SQ SCH ×2 (05:29→18:25)
[2020-10-16 06:43] LABS: Basophils % 0.5 %; Eosinophils # 0.1 K/mcL (0.0-0.6); Hematocrit 29.5 % (35.3-44.9); Hemoglobin 8.7 g/dL (11.5-15.4); Immature Granulocytes % 0.2 % (0-4); Lymphocytes # 1.4 K/mcL (0.6-4.6); Lymphocytes % 23.7 %; Mean Corpuscular HGB Conc 29.5 g/dL (31.6-35.5); Mean Corpuscular Hemoglobin 23.7 pg (28.0-33.3); Mean Corpuscular Volume 80.4 fL (83.0-100.0); Mean Platelet Volume 10.2 fL (9.4-12.4); Monocytes # 0.7 K/mcL (0.0-1.3); Monocytes % 11.1 %; Neutrophils # 3.7 K/mcL (1.6-8.9); Platelet Count 218 K/mcL (140-400); Red Blood Count 3.67 M/mcL (3.82-4.97); Red Cell Distribution Width 14.2 % (11.5-14.5); Segmented Neutrophils % 62.5 %
[2020-10-16 06:59] LABS: BUN/Creatinine Ratio 27 (6-26); Blood Urea Nitrogen 19 mg/dL (8-23); Calcium 9.6 mg/dL (8.6-10.3); Carbon Dioxide 32 mEq/L (23-29); Chloride 103 mEq/L (98-107); Glucose 86 mg/dL (70-105); Magnesium 1.6 mg/dL (1.6-2.6); Osmolality,Calculated 294 (280-300); Phosphorous 3.5 mg/dL (2.7-4.5); Potassium 3.4 mEq/L (3.5-5.1); Sodium 141 mEq/L (136-145); eGFR For African Americans > 60 (> 60); eGFR For Non-African Americans > 60 (> 60)
[2020-10-16] MEDS: Insulin LISPRO 300 UNITS/3 ML VIAL SUBQ SCH ×2 (08:04→11:38)
[2020-10-16] MEDS: atenoloL 50 MG TABLET PO SCH (09:12)
[2020-10-16] MEDS: Furosemide 40 MG TABLET PO SCH (09:12)
[2020-10-16] MEDS: Aspirin 81 MG TAB.CHEW PO SCH (09:12)
[2020-10-16] MEDS: ceFAZolin 2,000 MG in 0.9 % Sodium Chloride 100 ML IVPB SCH ×2 (09:12→16:02)
[2020-10-16] MEDS: Acetaminophen 325 MG TABLET PO PRN (09:26)
[2020-10-16] MEDS ORDERED: Lidocaine 1% 20 ML MDV ONE (15:23)
[2020-10-16] MEDS ORDERED: Lidocaine -MPF 2% 2 ML VIAL ONE (15:29)
[2020-10-16] MEDS ORDERED: *HR* FentaNYL (PF) 100 MCG/2 ML VIAL ONE (15:29)
[2020-10-16] MEDS ORDERED: *HR* Midazolam HCl 2 MG/2 ML VIAL ONE (15:29)
[2020-10-16] MEDS ORDERED: Ondansetron 4 MG/2 ML VIAL ONE (15:29)
[2020-10-16] MEDS ORDERED: *HR* Propofol 200 MG/20 ML VIAL IVP ONE ×2 (15:29→16:03)
[2020-10-16] MEDS ORDERED: Melatonin 3 MG TABLET PO PRN (17:38)
[2020-10-16] MEDS ORDERED: *HR* Dextrose 50 % in Water (Vial) 50 ML VIAL IVP PRN (17:38)
[2020-10-16] MEDS ORDERED: Simethicone 80 MG TAB.CHEW PO PRN (17:38)
[2020-10-16] MEDS ORDERED: Ondansetron 4 MG/2 ML VIAL IVP PRN (17:38)
[2020-10-16] MEDS ORDERED: Dextrose Gel 15 GM/37.5 ML TUBE PO PRN ×2 (17:38)
[2020-10-16] MEDS ORDERED: D5% in Water 1,000 ML IVC PRN (17:38)
[2020-10-16] MEDS ORDERED: Naloxone 0.4 MG/ML INJ IVP PRN (17:38)
[2020-10-16] MEDS: *HR* OxyCODONE/APAP 10/325 TABLET PO PRN (22:44)
[2020-10-16] MEDS: Insulin DETEMIR 100 UNIT/ML X5UNITS SUBQ SCH (23:18)
[2020-10-17] MEDS: CeFAZolin 2 GM/120 ML BAG IVPB SCH ×4 (01:13→23:16)
[2020-10-17 02:16] LABS: Basophils % 0.4 %; Hematocrit 31.2 % (35.3-44.9); Hemoglobin 9.3 g/dL (11.5-15.4); Immature Granulocytes % 0.2 % (0-4); Lymphocytes # 0.6 K/mcL (0.6-4.6); Lymphocytes % 13.2 %; Mean Corpuscular HGB Conc 29.8 g/dL (31.6-35.5); Mean Corpuscular Hemoglobin 23.7 pg (28.0-33.3); Mean Corpuscular Volume 79.4 fL (83.0-100.0); Mean Platelet Volume 10.1 fL (9.4-12.4); Monocytes # 0.1 K/mcL (0.0-1.3); Monocytes % 1.7 %; Platelet Count 215 K/mcL (140-400); Red Blood Count 3.93 M/mcL (3.82-4.97); Red Cell Distribution Width 14.2 % (11.5-14.5); Segmented Neutrophils % 84.5 %; White Blood Count 4.7 K/mcL (4.3-11.1)
[2020-10-17 02:35] LABS: BUN/Creatinine Ratio 27 (6-26); Blood Urea Nitrogen 20 mg/dL (8-23); Carbon Dioxide 27 mEq/L (23-29); Chloride 100 mEq/L (98-107); Glucose 304 mg/dL (70-105); Magnesium 1.5 mg/dL (1.6-2.6); Osmolality,Calculated 294 (280-300); Phosphorous 3.3 mg/dL (2.7-4.5); Potassium 4.2 mEq/L (3.5-5.1); Sodium 135 mEq/L (136-145); eGFR For African Americans > 60 (> 60); eGFR For Non-African Americans > 60 (> 60)
[2020-10-17] MEDS: *HR* Heparin 5,000 UNIT/ML VIAL SQ SCH ×2 (06:36→17:10)
[2020-10-17] MEDS: Furosemide 40 MG TABLET PO SCH (08:07)
[2020-10-17] MEDS: Aspirin 81 MG TAB.CHEW PO SCH (08:07)
[2020-10-17] MEDS: atenoloL 50 MG TABLET PO SCH (08:07)
[2020-10-17] MEDS: Insulin LISPRO 300 UNITS/3 ML VIAL SUBQ SCH ×3 (08:09→17:14)
[2020-10-17] MEDS: *HR* OxyCODONE/APAP 10/325 TABLET PO PRN ×2 (08:38→20:18)
[2020-10-17] MEDS: Insulin DETEMIR 100 UNIT/ML X5UNITS SUBQ SCH (20:10)
[2020-10-18 04:24] LABS: Basophils % 0.4 %; Eosinophils # 0.1 K/mcL (0.0-0.6); Hematocrit 28.2 % (35.3-44.9); Hemoglobin 8.3 g/dL (11.5-15.4); Immature Granulocytes % 0.3 % (0-4); Lymphocytes # 2.3 K/mcL (0.6-4.6); Mean Corpuscular HGB Conc 29.4 g/dL (31.6-35.5); Mean Corpuscular Hemoglobin 23.2 pg (28.0-33.3); Mean Platelet Volume 11.1 fL (9.4-12.4); Monocytes # 0.8 K/mcL (0.0-1.3); Monocytes % 10.8 %; Neutrophils # 4.1 K/mcL (1.6-8.9); Platelet Count 166 K/mcL (140-400); Red Blood Count 3.57 M/mcL (3.82-4.97); Red Cell Distribution Width 14.6 % (11.5-14.5); Segmented Neutrophils % 55.5 %; White Blood Count 7.3 K/mcL (4.3-11.1)
[2020-10-18 05:30] LABS: BUN/Creatinine Ratio 32 (6-26); Blood Urea Nitrogen 26 mg/dL (8-23); Carbon Dioxide 31 mEq/L (23-29); Chloride 103 mEq/L (98-107); Glucose 73 mg/dL (70-105); Magnesium 1.4 mg/dL (1.6-2.6); Osmolality,Calculated 287 (280-300); Phosphorous 2.8 mg/dL (2.7-4.5); Sodium 137 mEq/L (136-145); eGFR For African Americans > 60 (> 60); eGFR For Non-African Americans > 60 (> 60)
[2020-10-18] MEDS: *HR* Heparin 5,000 UNIT/ML VIAL SQ SCH ×2 (06:01→17:01)
[2020-10-18] MEDS: Insulin LISPRO 300 UNITS/3 ML VIAL SUBQ SCH ×3 (07:58→16:56)
[2020-10-18] MEDS: Aspirin 81 MG TAB.CHEW PO SCH (08:11)
[2020-10-18] MEDS: atenoloL 50 MG TABLET PO SCH (08:12)
[2020-10-18] MEDS: Furosemide 40 MG TABLET PO SCH (08:12)
[2020-10-18] MEDS: CeFAZolin 2 GM/120 ML BAG IVPB SCH ×3 (08:12→23:21)
[2020-10-18] MEDS: *HR* OxyCODONE/APAP 10/325 TABLET PO PRN (18:15)
[2020-10-18] MEDS: Insulin DETEMIR 100 UNIT/ML X5UNITS SUBQ SCH (19:58)
[2020-10-19 04:29] LABS: Basophils % 0.6 %; Eosinophils # 0.1 K/mcL (0.0-0.6); Eosinophils % 1.1 %; Hematocrit 27.2 % (35.3-44.9); Hemoglobin 7.9 g/dL (11.5-15.4); Immature Granulocytes % 0.2 % (0-4); Lymphocytes # 1.7 K/mcL (0.6-4.6); Lymphocytes % 31.6 %; Mean Corpuscular Hemoglobin 23.4 pg (28.0-33.3); Mean Corpuscular Volume 80.5 fL (83.0-100.0); Mean Platelet Volume 10.8 fL (9.4-12.4); Monocytes # 0.7 K/mcL (0.0-1.3); Monocytes % 12.9 %; Neutrophils # 2.9 K/mcL (1.6-8.9); Platelet Count 192 K/mcL (140-400); Red Blood Count 3.38 M/mcL (3.82-4.97); Red Cell Distribution Width 14.3 % (11.5-14.5); Segmented Neutrophils % 53.6 %; White Blood Count 5.3 K/mcL (4.3-11.1)
[2020-10-19 04:48] LABS: BUN/Creatinine Ratio 31 (6-26); Blood Urea Nitrogen 23 mg/dL (8-23); Calcium 8.6 mg/dL (8.6-10.3); Carbon Dioxide 32 mEq/L (23-29); Chloride 102 mEq/L (98-107); Glucose 238 mg/dL (70-105); Magnesium 1.5 mg/dL (1.6-2.6); Osmolality,Calculated 299 (280-300); Phosphorous 2.9 mg/dL (2.7-4.5); Potassium 3.8 mEq/L (3.5-5.1); Sodium 139 mEq/L (136-145); eGFR For African Americans > 60 (> 60); eGFR For Non-African Americans > 60 (> 60)
[2020-10-19] MEDS: *HR* Heparin 5,000 UNIT/ML VIAL SQ SCH ×2 (05:34→17:23)
[2020-10-19] MEDS: atenoloL 50 MG TABLET PO SCH ×2 (08:16→08:24)
[2020-10-19] MEDS: Furosemide 40 MG TABLET PO SCH (08:24)
[2020-10-19] MEDS: Aspirin 81 MG TAB.CHEW PO SCH (08:25)
[2020-10-19] MEDS: Insulin LISPRO 300 UNITS/3 ML VIAL SUBQ SCH ×3 (08:25→17:33)
[2020-10-19] MEDS: CeFAZolin 2 GM/120 ML BAG IVPB SCH ×3 (08:25→23:46)
[2020-10-19] MEDS: Vancomycin 1,500 MG/265 ML IV.SOLN IVPB SCH (17:23)
[2020-10-19] MEDS: *HR* HYDROcodone/Acet 5/325 mg TABLET PO PRN (17:36)
[2020-10-19] MEDS: Insulin DETEMIR 100 UNIT/ML X5UNITS SUBQ SCH (21:48)
[2020-10-20] MEDS: Vancomycin 1,500 MG/265 ML IV.SOLN IVPB SCH ×2 (03:19→16:27)
[2020-10-20 04:02] LABS: Eosinophils % 1.7 %; Hematocrit 29.1 % (35.3-44.9); Hemoglobin 8.7 g/dL (11.5-15.4); Immature Granulocytes % 0.3 % (0-4); Lymphocytes % 23.8 %; Mean Corpuscular HGB Conc 29.9 g/dL (31.6-35.5); Mean Corpuscular Hemoglobin 23.8 pg (28.0-33.3); Mean Corpuscular Volume 79.7 fL (83.0-100.0); Mean Platelet Volume 11.1 fL (9.4-12.4); Platelet Count 217 K/mcL (140-400); Red Blood Count 3.65 M/mcL (3.82-4.97); Segmented Neutrophils % 63.8 %
[2020-10-20 04:03] LABS: Basophils % 0.4 %; Eosinophils # 0.1 K/mcL (0.0-0.6); Lymphocytes # 1.7 K/mcL (0.6-4.6); Monocytes # 0.7 K/mcL (0.0-1.3); Neutrophils # 4.5 K/mcL (1.6-8.9)
[2020-10-20 04:19] LABS: BUN/Creatinine Ratio 28 (6-26); Blood Urea Nitrogen 20 mg/dL (8-23); C-Reactive Protein < 5 mg/L (Less than 10); Calcium 9.1 mg/dL (8.6-10.3); Carbon Dioxide 32 mEq/L (23-29); Chloride 100 mEq/L (98-107); Glucose 146 mg/dL (70-105); Magnesium 1.7 mg/dL (1.6-2.6); Osmolality,Calculated 291 (280-300); Phosphorous 2.6 mg/dL (2.7-4.5); Potassium 3.6 mEq/L (3.5-5.1); Sodium 138 mEq/L (136-145); eGFR For African Americans > 60 (> 60); eGFR For Non-African Americans > 60 (> 60)
[2020-10-20] MEDS: *HR* Heparin 5,000 UNIT/ML VIAL SQ SCH ×2 (04:55→17:06)
[2020-10-20] MEDS: Acetaminophen 325 MG TABLET PO PRN (04:58)
[2020-10-20] MEDS: Insulin LISPRO 300 UNITS/3 ML VIAL SUBQ SCH ×3 (08:22→16:28)
[2020-10-20] MEDS: CeFAZolin 2 GM/120 ML BAG IVPB SCH ×2 (08:26→15:57)
[2020-10-20] MEDS: Furosemide 40 MG TABLET PO SCH (08:26)
[2020-10-20] MEDS: Aspirin 81 MG TAB.CHEW PO SCH (08:26)
[2020-10-20] MEDS: atenoloL 50 MG TABLET PO SCH (08:26)
[2020-10-20] MEDS: *HR* OxyCODONE/APAP 10/325 TABLET PO PRN (22:36)
[2020-10-20] MEDS: Insulin DETEMIR 100 UNIT/ML X5UNITS SUBQ SCH (22:37)
[2020-10-21] MEDS: CeFAZolin 2 GM/120 ML BAG IVPB SCH ×3 (00:47→21:15)
[2020-10-21] MEDS: Vancomycin 1,500 MG/265 ML IV.SOLN IVPB SCH ×2 (03:25→15:16)
[2020-10-21] MEDS: *HR* Heparin 5,000 UNIT/ML VIAL SQ SCH ×2 (05:01→16:24)
[2020-10-21] MEDS: Insulin LISPRO 300 UNITS/3 ML VIAL SUBQ SCH ×3 (07:57→16:24)
[2020-10-21 08:07] LABS: Adenovirus Not Detected (Not Detect); Bordetella Pertussis Not Detected (Not Detect); Chlamydophila pneumoniae Not Detected (Not Detect); Coronavirus 229E Not Detected (Not Detect); Coronavirus HKU1 Not Detected (Not Detect); Coronavirus NL63 Not Detected (Not Detect); Coronavirus OC43 Not Detected (Not Detect); Human Metapneumovirus Not Detected (Not Detect); Human Rhinovirus/Enterovirus Not Detected (Not Detect); Influenza A Subtype 2009 H1 Not Detected (Not Detect); Influenza B Not Detected (Not Detect); Mycoplasma pneumoniae Not Detected (Not Detect); Parainfluenza Virus 1 Not Detected (Not Detect); Parainfluenza Virus 2 Not Detected (Not Detect); Parainfluenza Virus 3 Not Detected (Not Detect); Parainfluenza Virus 4 Not Detected (Not Detect); Respiratory Syncytial Virus Not Detected (Not Detect); SARS-CoV-2 Not Detected (Not Detect)
[2020-10-21] MEDS: Aspirin 81 MG TAB.CHEW PO SCH (08:12)
[2020-10-21] MEDS: atenoloL 50 MG TABLET PO SCH (08:14)
[2020-10-21] MEDS: Furosemide 40 MG TABLET PO SCH (08:16)
[2020-10-21] MEDS ORDERED: Lidocaine 1% 20 ML MDV ONE (17:21)
[2020-10-21] MEDS ORDERED: *HR* Propofol 200 MG/20 ML VIAL IVP ONE (17:37)
[2020-10-21] MEDS ORDERED: Ondansetron 4 MG/2 ML VIAL ONE (17:38)
[2020-10-21] MEDS ORDERED: *HR* FentaNYL (PF) 100 MCG/2 ML VIAL ONE ×2 (17:38→19:45)
[2020-10-21] MEDS ORDERED: Lidocaine -MPF 2% 2 ML VIAL ONE (17:38)
[2020-10-21] MEDS ORDERED: *HR* Rocuronium Bromide 50 MG/5 ML VIAL ONE (17:41)
[2020-10-21] MEDS ORDERED: *HR* Succinylcholine 200 MG/10 ML VIAL IVP ONE (17:41)
[2020-10-21] MEDS ORDERED: *HR* HYDROmorphone PF 0.5 MG/0.5 ML SYRINGE IVP PRN (18:49)
[2020-10-21] MEDS ORDERED: Acetaminophen IV 1,000 MG/100 ML BAG IVPB ONE (18:59)
[2020-10-21] MEDS: Insulin DETEMIR 100 UNIT/ML X5UNITS SUBQ SCH (21:35)
[2020-10-22] MEDS: *HR* OxyCODONE/APAP 10/325 TABLET PO PRN ×3 (00:24→23:47)
[2020-10-22] MEDS: CeFAZolin 2 GM/120 ML BAG IVPB SCH ×4 (00:25→23:44)
[2020-10-22] MEDS: Vancomycin 1,500 MG/265 ML IV.SOLN IVPB SCH ×2 (03:41→15:40)
[2020-10-22] MEDS: *HR* HYDROcodone/Acet 5/325 mg TABLET PO PRN (03:52)
[2020-10-22] MEDS: *HR* Heparin 5,000 UNIT/ML VIAL SQ SCH ×2 (05:19→17:20)
[2020-10-22 05:30] LABS: Basophils % 0.2 %; Hematocrit 31.4 % (35.3-44.9); Hemoglobin 9.4 g/dL (11.5-15.4); Immature Granulocytes % 0.3 % (0-4); Lymphocytes # 0.6 K/mcL (0.6-4.6); Lymphocytes % 6.9 %; Mean Corpuscular HGB Conc 29.9 g/dL (31.6-35.5); Mean Corpuscular Hemoglobin 23.8 pg (28.0-33.3); Mean Corpuscular Volume 79.5 fL (83.0-100.0); Mean Platelet Volume 10.8 fL (9.4-12.4); Monocytes # 0.4 K/mcL (0.0-1.3); Monocytes % 4.2 %; Neutrophils # 8.2 K/mcL (1.6-8.9); Platelet Count 276 K/mcL (140-400); Red Blood Count 3.95 M/mcL (3.82-4.97); Segmented Neutrophils % 88.4 %; White Blood Count 9.3 K/mcL (4.3-11.1)
[2020-10-22 05:42] LABS: BUN/Creatinine Ratio 28 (6-26); Blood Urea Nitrogen 20 mg/dL (8-23); Calcium 8.8 mg/dL (8.6-10.3); Carbon Dioxide 28 mEq/L (23-29); Chloride 101 mEq/L (98-107); Glucose 199 mg/dL (70-105); Osmolality,Calculated 296 (280-300); Potassium 3.7 mEq/L (3.5-5.1); Sodium 139 mEq/L (136-145); eGFR For African Americans > 60 (> 60); eGFR For Non-African Americans > 60 (> 60)
[2020-10-22] MEDS: Aspirin 81 MG TAB.CHEW PO SCH (08:11)
[2020-10-22] MEDS: atenoloL 50 MG TABLET PO SCH (08:11)
[2020-10-22] MEDS: Insulin LISPRO 300 UNITS/3 ML VIAL SUBQ SCH ×3 (08:12→17:21)
[2020-10-22] MEDS: Furosemide 40 MG TABLET PO SCH (08:12)
[2020-10-22] MEDS: Insulin DETEMIR 100 UNIT/ML X5UNITS SUBQ SCH (20:43)
[2020-10-23 03:01] LABS: Mean Platelet Volume 11.1 fL (9.4-12.4); Red Cell Distribution Width 14.5 % (11.5-14.5)
[2020-10-23 03:03] LABS: Basophils % 0.4 %; Eosinophils # 0.1 K/mcL (0.0-0.6); Eosinophils % 0.8 %; Hematocrit 25.2 % (35.3-44.9); Hemoglobin 7.5 g/dL (11.5-15.4); Immature Granulocytes % 0.3 % (0-4); Mean Corpuscular HGB Conc 29.8 g/dL (31.6-35.5); Mean Corpuscular Hemoglobin 23.7 pg (28.0-33.3); Mean Corpuscular Volume 79.5 fL (83.0-100.0); Monocytes # 0.9 K/mcL (0.0-1.3); Monocytes % 12.6 %; Neutrophils # 4.3 K/mcL (1.6-8.9); Platelet Count 209 K/mcL (140-400); Red Blood Count 3.17 M/mcL (3.82-4.97); Segmented Neutrophils % 58.9 %; White Blood Count 7.3 K/mcL (4.3-11.1)
[2020-10-23 03:18] LABS: BUN/Creatinine Ratio 35 (6-26); Blood Urea Nitrogen 32 mg/dL (8-23); Calcium 8.5 mg/dL (8.6-10.3); Carbon Dioxide 28 mEq/L (23-29); Chloride 101 mEq/L (98-107); Glucose 140 mg/dL (70-105); Osmolality,Calculated 291 (280-300); Potassium 3.6 mEq/L (3.5-5.1); Sodium 136 mEq/L (136-145); eGFR For African Americans > 60 (> 60); eGFR For Non-African Americans > 60 (> 60)
[2020-10-23 03:31] LABS: Hypochromasia Present (Not Present); Large Platelets Present (Not Present); Platelet Estimate Normal (Normal); Toxic Granulation Present (Not Present)
[2020-10-23] MEDS: *HR* Heparin 5,000 UNIT/ML VIAL SQ SCH (05:30)
[2020-10-23] MEDS: Insulin LISPRO 300 UNITS/3 ML VIAL SUBQ SCH ×3 (08:04→17:11)
[2020-10-23] MEDS: CeFAZolin 2 GM/120 ML BAG IVPB SCH ×2 (08:08→15:42)
[2020-10-23] MEDS: Furosemide 40 MG TABLET PO SCH (08:10)
[2020-10-23] MEDS: atenoloL 50 MG TABLET PO SCH (08:10)
[2020-10-23] MEDS: Aspirin 81 MG TAB.CHEW PO SCH (08:10)
[2020-10-23] MEDS: Acetaminophen 325 MG TABLET PO PRN (08:17)
[2020-10-23 08:18] LABS: Hematocrit 24.6 % (35.3-44.9); Hemoglobin 7.1 g/dL (11.5-15.4)
[2020-10-23 12:25] LABS: Hematocrit 25.4 % (35.3-44.9); Hemoglobin 7.5 g/dL (11.5-15.4)
[2020-10-23 20:12] LABS: Hematocrit 25.9 % (35.3-44.9); Hemoglobin 7.5 g/dL (11.5-15.4)
[2020-10-23] MEDS: Doxycycline 100 MG CAPSULE PO SCH (21:40)
[2020-10-23] MEDS: Insulin DETEMIR 100 UNIT/ML X5UNITS SUBQ SCH (21:40)
[2020-10-23] MEDS: *HR* OxyCODONE/APAP 10/325 TABLET PO PRN (22:14)
[2020-10-24] MEDS: CeFAZolin 2 GM/120 ML BAG IVPB SCH ×3 (00:54→17:01)
[2020-10-24 05:46] LABS: Basophils % 0.4 %; Eosinophils # 0.1 K/mcL (0.0-0.6); Eosinophils % 1.6 %; Hematocrit 23.5 % (35.3-44.9); Immature Granulocytes % 0.1 % (0-4); Lymphocytes # 1.6 K/mcL (0.6-4.6); Lymphocytes % 24.4 %; Mean Corpuscular HGB Conc 29.8 g/dL (31.6-35.5); Mean Corpuscular Hemoglobin 23.6 pg (28.0-33.3); Mean Corpuscular Volume 79.1 fL (83.0-100.0); Mean Platelet Volume 11.3 fL (9.4-12.4); Monocytes % 14.7 %; Platelet Count 209 K/mcL (140-400); Red Blood Count 2.97 M/mcL (3.82-4.97); Red Cell Distribution Width 14.2 % (11.5-14.5); Segmented Neutrophils % 58.8 %; White Blood Count 6.7 K/mcL (4.3-11.1)
[2020-10-24 06:08] LABS: BUN/Creatinine Ratio 46 (6-26); Blood Urea Nitrogen 31 mg/dL (8-23); Carbon Dioxide 30 mEq/L (23-29); Chloride 100 mEq/L (98-107); Glucose 152 mg/dL (70-105); Osmolality,Calculated 292 (280-300); Potassium 3.5 mEq/L (3.5-5.1); Sodium 136 mEq/L (136-145); eGFR For African Americans > 60 (> 60); eGFR For Non-African Americans > 60 (> 60)
[2020-10-24 08:41] LABS: % Iron Saturation 4 % (15-50); Iron 13 mcg/dL (50-170); Transferrin 249 mg/dL (203-362)
[2020-10-24 08:59] LABS: Ferritin 18 ng/mL (10-120)
[2020-10-24] MEDS: Aspirin 81 MG TAB.CHEW PO SCH (09:08)
[2020-10-24] MEDS: Doxycycline 100 MG CAPSULE PO SCH ×2 (09:09→21:01)
[2020-10-24] MEDS: Furosemide 40 MG TABLET PO SCH (09:09)
[2020-10-24] MEDS: atenoloL 50 MG TABLET PO SCH (09:09)
[2020-10-24] MEDS: Acetaminophen 325 MG TABLET PO PRN (09:11)
[2020-10-24] MEDS: Insulin LISPRO 300 UNITS/3 ML VIAL SUBQ SCH ×3 (09:25→17:00)
[2020-10-24] MEDS: Iron Sucrose Complex 200 MG in 0.9 % Sodium Chloride 100 ML IVPB SCH (15:14)
[2020-10-24] MEDS: Insulin DETEMIR 100 UNIT/ML X5UNITS SUBQ SCH (21:00)
[2020-10-24] MEDS: *HR* OxyCODONE/APAP 10/325 TABLET PO PRN (21:02)
[2020-10-24 21:34] LABS: Hematocrit 23.7 % (35.3-44.9); Hemoglobin 7.1 g/dL (11.5-15.4)
[2020-10-25 01:35] LABS: Basophils % 0.5 %; Eosinophils # 0.2 K/mcL (0.0-0.6); Eosinophils % 2.3 %; Hematocrit 24.2 % (35.3-44.9); Hemoglobin 7.1 g/dL (11.5-15.4); Immature Granulocytes % 0.4 % (0-4); Lymphocytes # 1.8 K/mcL (0.6-4.6); Mean Corpuscular HGB Conc 29.3 g/dL (31.6-35.5); Mean Corpuscular Hemoglobin 22.8 pg (28.0-33.3); Mean Corpuscular Volume 77.8 fL (83.0-100.0); Monocytes % 13.7 %; Neutrophils # 4.3 K/mcL (1.6-8.9); Platelet Count 214 K/mcL (140-400); Red Blood Count 3.11 M/mcL (3.82-4.97); Red Cell Distribution Width 14.4 % (11.5-14.5); Segmented Neutrophils % 59.1 %; White Blood Count 7.3 K/mcL (4.3-11.1)
[2020-10-25 01:55] LABS: BUN/Creatinine Ratio 50 (6-26); Blood Urea Nitrogen 34 mg/dL (8-23); Carbon Dioxide 30 mEq/L (23-29); Chloride 99 mEq/L (98-107); Glucose 187 mg/dL (70-105); Osmolality,Calculated 295 (280-300); Potassium 3.5 mEq/L (3.5-5.1); Sodium 136 mEq/L (136-145); eGFR For African Americans > 60 (> 60); eGFR For Non-African Americans > 60 (> 60)
[2020-10-25] MEDS: CeFAZolin 2 GM/120 ML BAG IVPB SCH ×4 (02:04→23:19)
[2020-10-25] MEDS: Furosemide 40 MG TABLET PO SCH (07:52)
[2020-10-25] MEDS: Doxycycline 100 MG CAPSULE PO SCH ×2 (07:52→20:22)
[2020-10-25] MEDS: Aspirin 81 MG TAB.CHEW PO SCH (07:52)
[2020-10-25] MEDS: atenoloL 50 MG TABLET PO SCH (07:52)
[2020-10-25] MEDS: Acetaminophen 325 MG TABLET PO PRN (08:00)
[2020-10-25] MEDS: Iron Sucrose Complex 200 MG in 0.9 % Sodium Chloride 100 ML IVPB SCH (11:45)
[2020-10-25] MEDS: Insulin LISPRO 300 UNITS/3 ML VIAL SUBQ SCH ×3 (12:45→17:06)
[2020-10-25] MEDS: polyethylene glycoL 3350 17 GM POWD.PACK PO SCH (20:20)
[2020-10-25] MEDS: Insulin DETEMIR 100 UNIT/ML X5UNITS SUBQ SCH (20:22)
[2020-10-25 20:29] LABS: Hematocrit 26.3 % (35.3-44.9); Hemoglobin 7.7 g/dL (11.5-15.4)
[2020-10-26] MEDS: *HR* HYDROcodone/Acet 5/325 mg TABLET PO PRN (05:43)
[2020-10-26 06:17] LABS: Basophils % 0.5 %; Eosinophils # 0.2 K/mcL (0.0-0.6); Eosinophils % 2.9 %; Hematocrit 26.3 % (35.3-44.9); Hemoglobin 7.7 g/dL (11.5-15.4); Immature Granulocytes % 0.2 % (0-4); Lymphocytes # 1.5 K/mcL (0.6-4.6); Lymphocytes % 23.6 %; Mean Corpuscular HGB Conc 29.3 g/dL (31.6-35.5); Mean Corpuscular Hemoglobin 23.3 pg (28.0-33.3); Mean Corpuscular Volume 79.5 fL (83.0-100.0); Monocytes # 0.8 K/mcL (0.0-1.3); Monocytes % 12.8 %; Neutrophils # 3.9 K/mcL (1.6-8.9); Platelet Count 248 K/mcL (140-400); Red Blood Count 3.31 M/mcL (3.82-4.97); Red Cell Distribution Width 14.6 % (11.5-14.5); White Blood Count 6.5 K/mcL (4.3-11.1)
[2020-10-26 06:31] LABS: BUN/Creatinine Ratio 46 (6-26); Blood Urea Nitrogen 31 mg/dL (8-23); Calcium 9.3 mg/dL (8.6-10.3); Carbon Dioxide 33 mEq/L (23-29); Chloride 101 mEq/L (98-107); Glucose 79 mg/dL (70-105); Osmolality,Calculated 295 (280-300); Potassium 3.4 mEq/L (3.5-5.1); Sodium 140 mEq/L (136-145); eGFR For African Americans > 60 (> 60); eGFR For Non-African Americans > 60 (> 60)
[2020-10-26] MEDS: CeFAZolin 2 GM/120 ML BAG IVPB SCH ×3 (08:02→23:07)
[2020-10-26] MEDS: atenoloL 50 MG TABLET PO SCH (08:04)
[2020-10-26] MEDS: Aspirin 81 MG TAB.CHEW PO SCH (08:04)
[2020-10-26] MEDS: Furosemide 40 MG TABLET PO SCH (08:04)
[2020-10-26] MEDS: polyethylene glycoL 3350 17 GM POWD.PACK PO SCH (08:04)
[2020-10-26] MEDS: Doxycycline 100 MG CAPSULE PO SCH ×2 (08:04→19:30)
[2020-10-26] MEDS: Insulin LISPRO 300 UNITS/3 ML VIAL SUBQ SCH ×3 (08:05→16:40)
[2020-10-26] MEDS: Iron Sucrose Complex 200 MG in 0.9 % Sodium Chloride 100 ML IVPB SCH (08:09)
[2020-10-26] MEDS ORDERED: Aspirin 81 MG TAB.CHEW PO ONE (19:02)
[2020-10-26] MEDS: Insulin DETEMIR 100 UNIT/ML X5UNITS SUBQ SCH (19:30)
[2020-10-27 02:18] LABS: Hematocrit 25.2 % (35.3-44.9); Hemoglobin 7.4 g/dL (11.5-15.4)
[2020-10-27 02:35] LABS: BUN/Creatinine Ratio 43 (6-26); Blood Urea Nitrogen 30 mg/dL (8-23); Calcium 9.4 mg/dL (8.6-10.3); Carbon Dioxide 32 mEq/L (23-29); Chloride 100 mEq/L (98-107); Glucose 138 mg/dL (70-105); Osmolality,Calculated 296 (280-300); Potassium 3.4 mEq/L (3.5-5.1); Sodium 139 mEq/L (136-145); eGFR For African Americans > 60 (> 60); eGFR For Non-African Americans > 60 (> 60)
[2020-10-27] MEDS: *HR* HYDROcodone/Acet 5/325 mg TABLET PO PRN ×2 (03:06→11:37)
[2020-10-27] MEDS ORDERED: *HR* Enoxaparin 40 MG/0.4 ML SYRINGE SQ SCH (06:00)
[2020-10-27] MEDS: Insulin LISPRO 300 UNITS/3 ML VIAL SUBQ SCH ×3 (07:22→17:14)
[2020-10-27] MEDS: atenoloL 50 MG TABLET PO SCH (08:43)
[2020-10-27] MEDS: CeFAZolin 2 GM/120 ML BAG IVPB SCH ×2 (08:43→16:24)
[2020-10-27] MEDS: Aspirin 81 MG TAB.CHEW PO SCH (08:43)
[2020-10-27] MEDS: Doxycycline 100 MG CAPSULE PO SCH (08:44)
[2020-10-27] MEDS: Furosemide 40 MG TABLET PO SCH (08:44)
[2020-10-27 14:21] VITALS: BP 114/66
== END 2020-10-27 18:22 | DRG 313 ==
LOC: 3NENU 10:07 → EMEROOARM 10:07 → SUATTDRO 10:59 → 3NENU 12:00 → SUATTDRO 10-15 17:42 → 3NENU 10-27 11:01
PROVIDERS: ADMIT Internal Medicine; ATTEND Internal Medicine

== ENCOUNTER 2021-03-15 14:56 | Observation (INO) ==
[2021-03-15 15:42] LABS: Basophils # 0.1 K/mcL (0.0-0.2); Basophils % 0.7 %; Hematocrit 36.6 % (35.3-44.9); Hemoglobin 11.4 g/dL (11.5-15.4); Immature Granulocytes % 2.4 % (0-4); Lymphocytes # 0.7 K/mcL (0.6-4.6); Lymphocytes % 4.1 %; Mean Corpuscular HGB Conc 31.1 g/dL (31.6-35.5); Mean Corpuscular Hemoglobin 24.5 pg (28.0-33.3); Mean Corpuscular Volume 78.5 fL (83.0-100.0); Mean Platelet Volume 9.4 fL (9.4-12.4); Monocytes # 1.2 K/mcL (0.0-1.3); Monocytes % 7.4 %; Neutrophils # 13.9 K/mcL (1.6-8.9); Platelet Count 308 K/mcL (140-400); Red Blood Count 4.66 M/mcL (3.82-4.97); Red Cell Distribution Width 17.6 % (11.5-14.5); Segmented Neutrophils % 85.4 %; White Blood Count 16.3 K/mcL (4.3-11.1)
[2021-03-15 15:47] LABS: VBG HCO3 18 mEq/L (21-27); VBG PCO2 28 mmHg (41-51); VBG PH 7.42 pH Units (7.32-7.42); VBG PO2 137 mmHg (25-50)
[2021-03-15 16:39] LABS: Albumin 3.2 g/dL (3.5-5.7); Albumin/Globulin Ratio 0.7 (1.1-2.2); Bilirubin,Total 0.5 mg/dL (0.3-1.0); Calcium 9.2 mg/dL (8.6-10.3); Globulin 4.4 g/dL (2.4-3.5); Magnesium 1.5 mg/dL (1.6-2.6); Potassium 3.9 mEq/L (3.5-5.1); Thyroid Stimulating Hormone 1.047 mcIU/mL (0.340-5.600); Total Protein 7.6 g/dL (6.4-8.9)
[2021-03-15 16:41] LABS: Troponin I 0.04 ng/mL (< 0.04)
[2021-03-15 16:52] LABS: Bilirubin,Urine Negative (Negative); Blood,Urine Large (Negative); Clarity,Urine Ex.Turbid (Clear); Color,Urine Light-Red (Yellow); Glucose,Urine (UA) >=1000 mg/dL (Normal); Ketones,Urine 40 mg/dL (Negative); Leukocyte Esterase,Urine Moderate (Negative); Nitrite,Urine Negative (Negative); PH,Urine 5.5 pH Units (5.0-8.0); Protein,Urine 30 mg/dL (Neg-Trace); Specific Gravity,Urine 1.023 (1.010-1.025); Urobilinogen,Urine Normal (Normal)
[2021-03-15] MEDS ORDERED: cefTRIAXone 1,000 MG in Water for inj. (sterile) 10 ML IVP ONE (16:54)
[2021-03-15 16:56] LABS: Hyaline Casts,Urine None Seen per lpf (None Seen); RBC,Urine TNTC per hpf (0-3); Squamous Epithelial Cell,Urine Present per hpf (None-Few); WBC,Urine TNTC per hpf (0-3)
[2021-03-15 16:57] LABS: Bacteria,Urine Present per hpf (None-Few); Budding Yeast,Urine Present per hpf (None Seen); Mucus,Urine Present per lpf (None-Few)
[2021-03-15] MEDS: 0.9 % Sodium Chloride 1,000 ML IV SCH ×2 (17:33→19:38)
[2021-03-15] MEDS ORDERED: 0.9 % Sodium Chloride 1,000 ML IVC ONE (17:34)
[2021-03-15] MEDS ORDERED: Water for inj. (sterile) 10 ML ONE (17:55)
[2021-03-15] MEDS ORDERED: Insulin Regular, Human 100 UNIT/ML IV PRN (18:01)
[2021-03-15] MEDS ORDERED: Naloxone 0.4 MG/ML INJ IVP PRN (18:01)
[2021-03-15] MEDS ORDERED: D5% in 0.45% NACL 1,000 ML IVC PRN (18:01)
[2021-03-15] MEDS ORDERED: Ondansetron ODT 4 MG TAB.RAPDIS SL PRN (18:01)
[2021-03-15 18:55] LABS: Influenza A PCR Negative (Negative); Influenza B PCR Negative (Negative); Resp. Syncytial Virus PCR Negative (Negative)
[2021-03-15] MEDS ORDERED: Piperacillin/Tazobactam 3.375 GM in 0.9 % Sodium Chloride Mini Bag 100 ML IVPB SCH (19:00)
[2021-03-15 19:29] LABS: SARS-CoV-2 by PCR (In House) Negative (Negative)
[2021-03-15] MEDS: 0.9 % Sodium Chloride w KCl 20 MEQ/1,000 ML MLS IVC SCH ×3 (19:39→23:11)
[2021-03-15] MEDS: D5% in 0.45% NACL w KCl 20 MEQ/1,000 ML MLS IVC PRN (23:09)
[2021-03-16 00:50] LABS: VBG HCO3 20 mEq/L (21-27); VBG PCO2 24 mmHg (41-51); VBG PH 7.54 pH Units (7.32-7.42); VBG PO2 103 mmHg (25-50)
[2021-03-16 00:59] LABS: Albumin/Globulin Ratio 0.8 (1.1-2.2); Bilirubin,Total 0.3 mg/dL (0.3-1.0); Calcium 8.6 mg/dL (8.6-10.3); Globulin 3.8 g/dL (2.4-3.5); Magnesium 1.4 mg/dL (1.6-2.6); Phosphorous 1.6 mg/dL (2.7-4.5); Potassium 3.8 mEq/L (3.5-5.1); Total Protein 6.8 g/dL (6.4-8.9)
[2021-03-16] MEDS: Acetaminophen 325 MG TABLET PO PRN ×2 (02:09→11:30)
[2021-03-16] MEDS ORDERED: Potassium Phosphate 44 MEQ in 0.9 % Sodium Chloride 250 ML IVPB ONE ×2 (03:08→06:00)
[2021-03-16] MEDS: D5% in 0.45% NACL w KCl 20 MEQ/1,000 ML MLS IVC PRN (03:14)
[2021-03-16] MEDS: *HR* Dextrose 50 % in Water (Vial) 50 ML VIAL IVP PRN ×2 (04:10→05:12)
[2021-03-16] MEDS: 0.9 % Sodium Chloride w KCl 20 MEQ/1,000 ML MLS IVC SCH ×2 (04:39→04:40)
[2021-03-16 06:13] LABS: BUN/Creatinine Ratio 17 (6-26); Blood Urea Nitrogen 18 mg/dL (8-23); Calcium 8.6 mg/dL (8.6-10.3); Carbon Dioxide 22 mEq/L (23-29); Chloride 101 mEq/L (98-107); Glucose 150 mg/dL (70-105); Osmolality,Calculated 281 (280-300); Potassium 3.8 mEq/L (3.5-5.1); Sodium 133 mEq/L (136-145); eGFR For African Americans > 60 (> 60); eGFR For Non-African Americans 54 (> 60)
[2021-03-16] MEDS: Piperacillin/Tazobactam 3.375 GM in 0.9 % Sodium Chloride Mini Bag 100 ML IVPB SCH ×3 (06:14→23:03)
[2021-03-16] MEDS ORDERED: Insulin DETEMIR 100 UNIT/ML X5UNITS SUBQ ONE (07:14)
[2021-03-16] MEDS: 0.9 % Sodium Chloride 1,000 ML IV SCH (07:53)
[2021-03-16] MEDS ORDERED: *HR* OxyCODONE/APAP 10/325 TABLET PO PRN (12:08)
[2021-03-16] MEDS: Insulin LISPRO 300 UNITS/3 ML VIAL SUBQ SCH ×2 (13:57→16:17)
[2021-03-16] MEDS: *HR* Heparin 5,000 UNIT/ML VIAL SQ SCH ×2 (14:28→23:03)
[2021-03-16 18:32] LABS: Hematocrit 29.8 % (35.3-44.9); Hemoglobin 9.5 g/dL (11.5-15.4); Mean Corpuscular HGB Conc 31.9 g/dL (31.6-35.5); Mean Corpuscular Hemoglobin 24.5 pg (28.0-33.3); Mean Platelet Volume 9.3 fL (9.4-12.4); Platelet Count 259 K/mcL (140-400); Red Blood Count 3.87 M/mcL (3.82-4.97); Red Cell Distribution Width 17.6 % (11.5-14.5); White Blood Count 12.1 K/mcL (4.3-11.1)
[2021-03-16] MEDS ORDERED: Insulin LISPRO 300 UNITS/3 ML VIAL SUBQ SCH (21:00)
[2021-03-16 21:51] LABS: Estimated Average Glucose 289 mg/dl; Hemoglobin A1C 11.7 %
[2021-03-16] MEDS: Aspirin Enteric Coated 325 MG Tablet PO SCH (23:02)
[2021-03-17 06:29] LABS: Basophils # 0.1 K/mcL (0.0-0.2); Basophils % 0.6 %; Eosinophils # 0.1 K/mcL (0.0-0.6); Eosinophils % 0.6 %; Hemoglobin 9.2 g/dL (11.5-15.4); Immature Granulocytes % 3.3 % (0-4); Lymphocytes # 1.3 K/mcL (0.6-4.6); Lymphocytes % 14.6 %; Mean Corpuscular HGB Conc 31.7 g/dL (31.6-35.5); Mean Corpuscular Hemoglobin 24.6 pg (28.0-33.3); Mean Corpuscular Volume 77.5 fL (83.0-100.0); Mean Platelet Volume 9.1 fL (9.4-12.4); Monocytes # 1.3 K/mcL (0.0-1.3); Monocytes % 14.7 %; Neutrophils # 5.7 K/mcL (1.6-8.9); Platelet Count 222 K/mcL (140-400); Red Blood Count 3.74 M/mcL (3.82-4.97); Red Cell Distribution Width 17.7 % (11.5-14.5); Segmented Neutrophils % 66.2 %; White Blood Count 8.6 K/mcL (4.3-11.1)
[2021-03-17] MEDS: Piperacillin/Tazobactam 3.375 GM in 0.9 % Sodium Chloride Mini Bag 100 ML IVPB SCH ×2 (06:41→14:33)
[2021-03-17] MEDS: *HR* Heparin 5,000 UNIT/ML VIAL SQ SCH ×2 (06:42→14:33)
[2021-03-17 06:48] LABS: BUN/Creatinine Ratio 18 (6-26); Blood Urea Nitrogen 17 mg/dL (8-23); Calcium 8.6 mg/dL (8.6-10.3); Carbon Dioxide 24 mEq/L (23-29); Chloride 102 mEq/L (98-107); Glucose 176 mg/dL (70-105); Magnesium 1.5 mg/dL (1.6-2.6); Osmolality,Calculated 282 (280-300); Phosphorous 2.6 mg/dL (2.7-4.5); Potassium 4.1 mEq/L (3.5-5.1); Sodium 133 mEq/L (136-145); eGFR For African Americans > 60 (> 60); eGFR For Non-African Americans 60 (> 60)
[2021-03-17] MEDS: Aspirin Enteric Coated 325 MG Tablet PO SCH (08:35)
[2021-03-17] MEDS: Insulin LISPRO 300 UNITS/3 ML VIAL SUBQ SCH ×3 (08:35→17:14)
[2021-03-17] MEDS ORDERED: atenoloL 50 MG TABLET PO SCH (09:00)
[2021-03-17 14:24] VITALS: BP 125/71; PULSE 73; TEMP 98.1; O2SAT 96
== END 2021-03-17 19:13 | DRG 720 ==
LOC: 2NNU 14:56 → EMEROOARM 14:56 → 2NNU 18:52 → 3ANU 03-16 11:40 → SUATTDRO 03-16 14:56
PROVIDERS: ADMIT Internal Medicine; ATTEND Internal Medicine

== ENCOUNTER 2021-10-23 02:21 | Inpatient (IN) ==
[2021-10-23 04:30] LABS: Bilirubin,Urine Small (Negative); Blood,Urine Large (Negative); Clarity,Urine Turbid (Clear); Color,Urine Red (Yellow); Glucose,Urine (UA) Normal (Normal); Ketones,Urine 15 mg/dL (Negative); Leukocyte Esterase,Urine Small (Negative); Nitrite,Urine Positive (Negative); PH,Urine 5.5 pH Units (5.0-8.0); Protein,Urine >=300 mg/dL (Neg-Trace); Specific Gravity,Urine 1.025 (1.010-1.025); Urobilinogen,Urine Normal (Normal)
[2021-10-23] MEDS ORDERED: cefTRIAXone 1,000 MG in Water for inj. (sterile) 10 ML IVP ONE (04:42)
[2021-10-23 05:56] LABS: Basophils # 0.1 K/mcL (0.0-0.2); Basophils % 0.3 %; Hematocrit 32.3 % (35.3-44.9); Hemoglobin 9.6 g/dL (11.5-15.4); Immature Granulocytes % 1.4 % (0-4); Lymphocytes # 1.2 K/mcL (0.6-4.6); Lymphocytes % 5.7 %; Mean Corpuscular HGB Conc 29.7 g/dL (31.6-35.5); Mean Corpuscular Hemoglobin 21.1 pg (28.0-33.3); Mean Platelet Volume 9.1 fL (9.4-12.4); Monocytes # 1.3 K/mcL (0.0-1.3); Monocytes % 5.9 %; Neutrophils # 18.9 K/mcL (1.6-8.9); Platelet Count 417 K/mcL (140-400); Red Blood Count 4.55 M/mcL (3.82-4.97); Red Cell Distribution Width 19.4 % (11.5-14.5); Segmented Neutrophils % 86.7 %; White Blood Count 21.8 K/mcL (4.3-11.1)
[2021-10-23] MEDS ORDERED: 0.9 % Sodium Chloride 1,000 ML IVC ONE (06:02)
[2021-10-23 06:07] LABS: Calcium 9.6 mg/dL (8.6-10.3); Potassium 4.4 mEq/L (3.5-5.1)
[2021-10-23 06:28] LABS: Influenza A PCR Negative (Negative); Influenza B PCR Negative (Negative); Resp. Syncytial Virus PCR Negative (Negative)
[2021-10-23 06:29] LABS: SARS-CoV-2 by PCR (In House) Negative (Negative)
[2021-10-23] MEDS ORDERED: cefTRIAXone 1,000 MG in 0.9 % Sodium Chloride Mini Bag 100 ML IVPB ONE (06:36)
[2021-10-23] MEDS ORDERED: Sodium Bicarbonate 50 MEQ/50 ML VIAL IVP ONE (06:59)
[2021-10-23] MEDS: Sodium Bicarbonate 150 MEQ in D5% in Water 1,000 ML IVC SCH ×2 (07:20→22:24)
[2021-10-23] MEDS ORDERED: Naloxone 0.4 MG/ML INJ IVP PRN (07:26)
[2021-10-23] MEDS ORDERED: Insulin Regular, Human 100 UNIT/ML IV PRN (07:49)
[2021-10-23] MEDS ORDERED: *HR* Dextrose 50 % in Water (Syg) 50 ML SYRINGE IVP PRN (07:49)
[2021-10-23] MEDS ORDERED: D5% in 0.45% NACL w KCl 20 MEQ/1,000 ML MLS IVC PRN (07:54)
[2021-10-23 11:46] LABS: Calcium 8.9 mg/dL (8.6-10.3); Potassium 4.9 mEq/L (3.5-5.1)
[2021-10-23 13:13] LABS: Calcium 9.1 mg/dL (8.6-10.3); Potassium 3.4 mEq/L (3.5-5.1)
[2021-10-23] MEDS ORDERED: Dextrose 4 GM Chewable Tablets PO PRN ×2 (13:59)
[2021-10-23] MEDS: *HR* Heparin 5,000 UNIT/ML VIAL SQ SCH ×2 (14:18→21:03)
[2021-10-23] MEDS: Insulin DETEMIR 100 UNIT/ML X5UNITS SUBQ SCH ×2 (14:47→21:03)
[2021-10-23 19:29] LABS: Potassium 4.7 mEq/L (3.5-5.1)
[2021-10-23 21:55] LABS: Calcium 8.7 mg/dL (8.6-10.3); Potassium 4.2 mEq/L (3.5-5.1)
[2021-10-23 22:25] LABS: CTX-M ESBL Gene Not Detected (Not Detect)
[2021-10-23 22:26] LABS: A.calcoaceticus-baumannii cplx Not Detected (Not Detect); Bacteroides fragilis by PCR Not Detected (Not Detect); Candida albicans by PCR Not Detected (Not Detect); Candida auris by PCR Not Detected (Not Detect); Candida glabrata by PCR Not Detected (Not Detect); Candida krusei by PCR Not Detected (Not Detect); Candida parapsilosis by PCR Not Detected (Not Detect); Candida tropicalis by PCR Not Detected (Not Detect); Crypto. neoformans/gattii PCR Not Detected (Not Detect); Enterobacter cloacae Cmplx PCR Not Detected (Not Detect); Enterococcus faecalis by PCR Not Detected (Not Detect); Enterococcus faecium by PCR Not Detected (Not Detect); Escherichia coli by PCR Not Detected (Not Detect); IMP Carbapenem-Resist Gene Not Detected (Not Detect); Klebs. pneumoniae group by PCR DETECTED (Not Detect); Klebsiella aerogenes by PCR Not Detected (Not Detect); Klebsiella oxytoca by PCR Not Detected (Not Detect); NDM Carbapenem-Resist Gene Not Detected (Not Detect); OXA-48-like Carbap-Resist Gene Not Detected (Not Detect); Proteus by PCR Not Detected (Not Detect); Pseudomonas aeruginosa by PCR Not Detected (Not Detect); Salmonella species by PCR Not Detected (Not Detect); Serratia marcescens by PCR Not Detected (Not Detect); Staph epidermidis by PCR Not Detected (Not Detect); Staph lugdunensis by PCR Not Detected (Not Detect); Staphylococcus aureus by PCR Not Detected (Not Detect); Staphylococcus by PCR Not Detected (Not Detect); Stenotrophomonas maltophilia Not Detected (Not Detect); Streptococcus agalactiae(B)PCR Not Detected (Not Detect); Streptococcus by PCR Not Detected (Not Detect); Streptococcus pneumoniae PCR Not Detected (Not Detect); Streptococcus pyogenes (A) PCR Not Detected (Not Detect); VIM Carbapenem-Resist Gene Not Detected (Not Detect); blaKPC Carbapenem-Resist Gene Not Detected (Not Detect); mcr-1 Colistin-Resist Gene Not Detected (Not Detect)
[2021-10-24 00:52] LABS: Basophils % 0.3 %; Eosinophils # 0.1 K/mcL (0.0-0.6); Eosinophils % 0.5 %; Hematocrit 28.3 % (35.3-44.9); Hemoglobin 8.8 g/dL (11.5-15.4); Immature Granulocytes % 1.4 % (0-4); Lymphocytes # 1.7 K/mcL (0.6-4.6); Lymphocytes % 12.9 %; Mean Corpuscular HGB Conc 31.1 g/dL (31.6-35.5); Mean Corpuscular Hemoglobin 21.5 pg (28.0-33.3); Mean Corpuscular Volume 69.2 fL (83.0-100.0); Mean Platelet Volume 8.3 fL (9.4-12.4); Monocytes # 1.2 K/mcL (0.0-1.3); Monocytes % 9.1 %; Neutrophils # 10.1 K/mcL (1.6-8.9); Platelet Count 315 K/mcL (140-400); Red Blood Count 4.09 M/mcL (3.82-4.97); Red Cell Distribution Width 19.2 % (11.5-14.5); Segmented Neutrophils % 75.8 %; White Blood Count 13.3 K/mcL (4.3-11.1)
[2021-10-24] MEDS: Insulin LISPRO 300 UNITS/3 ML VIAL SUBQ SCH ×7 (01:04→21:26)
[2021-10-24 01:11] LABS: Calcium 8.7 mg/dL (8.6-10.3); Potassium 3.3 mEq/L (3.5-5.1)
[2021-10-24 01:30] LABS: Platelet Estimate Normal (Normal)
[2021-10-24 03:37] LABS: Magnesium 1.3 mg/dL (1.6-2.6); Phosphorous 2.1 mg/dL (2.7-4.5)
[2021-10-24] MEDS: *HR* Heparin 5,000 UNIT/ML VIAL SQ SCH ×3 (05:56→21:25)
[2021-10-24] MEDS ORDERED: Insulin LISPRO 300 UNITS/3 ML VIAL SUBQ SCH (08:00)
[2021-10-24] MEDS: Sodium Bicarbonate 150 MEQ in D5% in Water 1,000 ML IVC SCH (09:04)
[2021-10-24] MEDS: atenoloL 50 MG TABLET PO SCH (09:06)
[2021-10-24] MEDS: cefTRIAXone 2,000 MG in 0.9 % Sodium Chloride 20 ML IVP SCH (09:07)
[2021-10-24] MEDS: *HR* OxyCODONE/APAP 10/325 TABLET PO PRN (15:35)
[2021-10-24] MEDS ORDERED: Insulin DETEMIR 100 UNIT/ML X5UNITS SUBQ SCH (21:00)
[2021-10-25 02:33] LABS: Basophils % 0.3 %; Eosinophils # 0.1 K/mcL (0.0-0.6); Hematocrit 25.6 % (35.3-44.9); Immature Granulocytes % 0.7 % (0-4); Lymphocytes # 1.9 K/mcL (0.6-4.6); Lymphocytes % 17.3 %; Mean Corpuscular HGB Conc 31.3 g/dL (31.6-35.5); Mean Corpuscular Hemoglobin 21.7 pg (28.0-33.3); Mean Corpuscular Volume 69.4 fL (83.0-100.0); Mean Platelet Volume 9.2 fL (9.4-12.4); Monocytes # 1.2 K/mcL (0.0-1.3); Monocytes % 10.3 %; Neutrophils # 7.9 K/mcL (1.6-8.9); Platelet Count 304 K/mcL (140-400); Red Blood Count 3.69 M/mcL (3.82-4.97); Segmented Neutrophils % 70.4 %; White Blood Count 11.2 K/mcL (4.3-11.1)
[2021-10-25 02:49] LABS: Calcium 8.8 mg/dL (8.6-10.3); Potassium 3.5 mEq/L (3.5-5.1)
[2021-10-25 03:20] LABS: Anisocytosis 1+ (Not Present); Hypochromasia Present (Not Present); Platelet Estimate Normal (Normal)
[2021-10-25] MEDS: *HR* OxyCODONE/APAP 10/325 TABLET PO PRN ×2 (05:40→14:24)
[2021-10-25] MEDS: *HR* Heparin 5,000 UNIT/ML VIAL SQ SCH ×3 (05:41→20:51)
[2021-10-25] MEDS: atenoloL 50 MG TABLET PO SCH (08:20)
[2021-10-25] MEDS: cefTRIAXone 2,000 MG in 0.9 % Sodium Chloride 20 ML IVP SCH (08:23)
[2021-10-25] MEDS: Insulin LISPRO 300 UNITS/3 ML VIAL SUBQ SCH ×7 (11:38→20:47)
[2021-10-25] MEDS ORDERED: 0.9 % Sodium Chloride 1,000 ML IVC ONE (19:13)
[2021-10-25] MEDS: Insulin DETEMIR 100 UNIT/ML X5UNITS SUBQ SCH (20:46)
[2021-10-26 01:50] LABS: Basophils % 0.2 %; Eosinophils # 0.1 K/mcL (0.0-0.6); Hematocrit 25.4 % (35.3-44.9); Hemoglobin 7.6 g/dL (11.5-15.4); Immature Granulocytes % 1.3 % (0-4); Lymphocytes # 2.7 K/mcL (0.6-4.6); Lymphocytes % 21.7 %; Mean Corpuscular HGB Conc 29.9 g/dL (31.6-35.5); Mean Corpuscular Hemoglobin 21.2 pg (28.0-33.3); Mean Corpuscular Volume 70.8 fL (83.0-100.0); Mean Platelet Volume 9.2 fL (9.4-12.4); Monocytes # 1.5 K/mcL (0.0-1.3); Monocytes % 11.7 %; Platelet Count 289 K/mcL (140-400); Red Blood Count 3.59 M/mcL (3.82-4.97); Red Cell Distribution Width 18.9 % (11.5-14.5); Segmented Neutrophils % 64.1 %; White Blood Count 12.4 K/mcL (4.3-11.1)
[2021-10-26 02:00] LABS: Calcium 8.7 mg/dL (8.6-10.3); Potassium 3.8 mEq/L (3.5-5.1)
[2021-10-26] MEDS: Insulin LISPRO 300 UNITS/3 ML VIAL SUBQ SCH ×7 (07:25→21:01)
[2021-10-26] MEDS: *HR* Heparin 5,000 UNIT/ML VIAL SQ SCH ×3 (08:45→20:48)
[2021-10-26] MEDS: *HR* OxyCODONE/APAP 10/325 TABLET PO PRN ×2 (08:45→16:50)
[2021-10-26] MEDS: cefTRIAXone 2,000 MG in 0.9 % Sodium Chloride 20 ML IVP SCH (08:45)
[2021-10-26] MEDS: atenoloL 50 MG TABLET PO SCH (08:46)
[2021-10-26] MEDS: Sodium Bicarbonate 150 MEQ in D5% in Water 1,000 ML IVC SCH (11:34)
[2021-10-26] MEDS: Nystatin POWDER 30 GM BOTTLE TP SCH ×3 (12:55→20:48)
[2021-10-26] MEDS: Insulin DETEMIR 100 UNIT/ML X5UNITS SUBQ SCH (20:48)
[2021-10-27 01:25] LABS: Hematocrit 25.3 % (35.3-44.9); Hemoglobin 7.6 g/dL (11.5-15.4); Mean Corpuscular Hemoglobin 21.3 pg (28.0-33.3); Mean Corpuscular Volume 71.1 fL (83.0-100.0); Mean Platelet Volume 9.1 fL (9.4-12.4); Platelet Count 269 K/mcL (140-400); Red Blood Count 3.56 M/mcL (3.82-4.97); Red Cell Distribution Width 18.8 % (11.5-14.5); White Blood Count 11.9 K/mcL (4.3-11.1)
[2021-10-27 01:38] LABS: Calcium 8.6 mg/dL (8.6-10.3); Potassium 4.1 mEq/L (3.5-5.1)
[2021-10-27] MEDS: *HR* OxyCODONE/APAP 10/325 TABLET PO PRN ×2 (05:18→11:52)
[2021-10-27] MEDS: *HR* Heparin 5,000 UNIT/ML VIAL SQ SCH (05:18)
[2021-10-27] MEDS: Insulin LISPRO 300 UNITS/3 ML VIAL SUBQ SCH ×4 (07:17→11:44)
[2021-10-27 07:19] VITALS: TEMP 98
[2021-10-27] MEDS: atenoloL 50 MG TABLET PO SCH (08:11)
[2021-10-27] MEDS: cefTRIAXone 2,000 MG in 0.9 % Sodium Chloride 20 ML IVP SCH (08:11)
[2021-10-27] MEDS: Nystatin POWDER 30 GM BOTTLE TP SCH (08:12)
[2021-10-27] MEDS ORDERED: D5% in Water 1,000 ML IVC PRN (10:05)
[2021-10-27] MEDS ORDERED: *HR* Dextrose 50 % in Water (Syg) 50 ML SYRINGE IVP PRN (10:05)
[2021-10-27 11:52] VITALS: BP 137/72; PULSE 64; O2SAT 99
[2021-10-27 12:55] LABS: Adenovirus Not Detected (Not Detect); Bordetella Pertussis Not Detected (Not Detect); Chlamydophila pneumoniae Not Detected (Not Detect); Coronavirus 229E Not Detected (Not Detect); Coronavirus HKU1 Not Detected (Not Detect); Coronavirus NL63 Not Detected (Not Detect); Coronavirus OC43 Not Detected (Not Detect); Human Metapneumovirus Not Detected (Not Detect); Human Rhinovirus/Enterovirus Not Detected (Not Detect); Influenza A Subtype 2009 H1 Not Detected (Not Detect); Influenza B Not Detected (Not Detect); Mycoplasma pneumoniae Not Detected (Not Detect); Parainfluenza Virus 1 Not Detected (Not Detect); Parainfluenza Virus 2 Not Detected (Not Detect); Parainfluenza Virus 3 Not Detected (Not Detect); Parainfluenza Virus 4 Not Detected (Not Detect); Respiratory Syncytial Virus Not Detected (Not Detect); SARS-CoV-2 Not Detected (Not Detect)
== END 2021-10-27 14:15 | DRG 720 ==
LOC: EMEROOARM 02:21 → 2ANU 02:21 → 2NNU 08:10 → 2ANU 10-25 11:31
PROVIDERS: ADMIT Internal Medicine; ATTEND Internal Medicine